=== PATIENT | male | born 1960 | race Caucasian/White ===

== ENCOUNTER 2017-02-12 19:14 | Emergency (ER) | payer OTHER ==
[~2017-02-12] VITALS: Ht 175.3 cm; Wt 82.0 kg
[~2017-02-12 19:14] MED LIST: HYDR50TA3 PO; LISI40TA PO
[2017-02-12 19:19] VITALS: TEMP 36.5; Ht 175.3 cm; Wt 82.0 kg
[2017-02-12] MEDS ORDERED: SODIUM CHLORIDE 0.9% 1000ML 1,000 ML IV STA (19:42)
[2017-02-12] MEDS ORDERED: MoRPHine SULFATE 4 MG/ML 1 ML CARP\\VIAL IV STA (19:42)
[2017-02-12] MEDS ORDERED: ONDANSETRON INJ 2 MG/ML 2 ML VIAL IV STA (19:42)
[2017-02-12] MEDS ORDERED: ATV/1 PO (20:29)
[2017-02-12] MEDS ORDERED: OXYC1TAB3 PO (20:30)
[2017-02-12] MEDS ORDERED: ASPI81TA28 PO (20:31)
--- NOTE | 2017-02-12 20:37 | DIAGNOSTIC IMAGING REPORT ---
ABD/PELVIS WITHOUT FOR STONE HISTORY: 56 years-old Male acute left-sided flank pain eval for stone/obstruction COMPARISON: CT abdomen and pelvis 05/12/2016 TECHNIQUE: Multiple axial CT images of the abdomen and pelvis were obtained without contrast. A dose lowering technique was used consistent with the principals of MARCELLA. FINDINGS: Lung bases are generally clear. No pneumoperitoneum. Inferior cardiac chambers are unremarkable. There is a nonspecific right paracentral epicardial lymph node, 2.1 x 1.1 cm, previously 1.7 x 1.1 cm. Cirrhotic morphology of the liver is seen. Spleen is enlarged, 15 cm. Portosystemic varices are seen. The pancreas is unremarkable. Mild distention of the gallbladder. 9 x 9 mm low attenuating left renal gland lesion suggests adenoma, unchanged. The right adrenal gland is unremarkable. Bilateral renal calculi are seen, largest measure approximately 5 mm within the superior pole right kidney. Most on the left are in the 4 mm range. No calculi are seen within either ureter. No hydronephrosis. The urinary bladder is unremarkable. Prostate is mildly prominent with central coarse calcifications. There are small bilateral fat filled inguinal hernias. There is normal course and caliber of the abdominal aorta. No bulky retroperitoneal adenopathy. There are a few mildly prominent nonspecific maria g hepatis lymph nodes, unchanged. Mild wall thickening is seen involving the distal esophagus with mild surrounding stranding. There is no bowel obstruction. No focal bowel wall thickening. The appendix appears noninflamed with high attenuating material seen within its tip. Soft tissues are unremarkable. AVN involves the femoral heads without collapse. There is mild sigmoidal scoliosis of the spine with severe intervertebral disc space narrowing at L4-L5 and L5-S1. IMPRESSION: 1. No acute intra-abdominal or intrapelvic abnormality identified. 2. Extensive bilateral nephrolithiasis without ureterolithiasis or obstructive uropathy. 3. Cirrhotic liver disease with stigmata of portal hypertension. No significant ascites. 4. High attenuating material within the noninflamed and nondilated appendiceal lumen may reflect appendicolith. 5. Mild wall thickening of the distal esophagus with mild surrounding inflammatory stranding may reflect esophagitis or underlying esophageal varices. This could be correlated with endoscopy.. The above report was generated using voice recognition software. It may contain grammatical, syntax or spelling errors. Electronically signed by: Meir Renteria M.D. 02/12/2017 8:35 PM Dictated Date/Time: 02/12/2017 8:28 PM
[2017-02-12 20:40] LABS: BUN/CREATININE RATIO 11.8 (10-20); CALCIUM 9.1 mg/dl (8.5-10.1); CREATININE 0.84 mg/dl (0.60-1.40); POTASSIUM 3.8 mmol/L (3.5-5.1)
[2017-02-12] MEDS ORDERED: PANTOprazole SOD 40 MG TAB PO STA (20:46)
[2017-02-12 20:57] LABS: HEMATOCRIT 46.9 % (42-52); MEAN CELL VOLUME 88.7 fL (80-100); MEAN CORPUSCULAR HEMOGLOBIN 30.8 pg (25-34); MEAN CORPUSCULAR HGB CONC 34.8 g/dl (32-36); MEAN PLATELET VOLUME 12.1 fL (7.4-10.4); PLATELET COUNT 70 K/uL (130-400); RED BLOOD COUNT 5.29 M/uL (4.7-6.1); WHITE BLOOD COUNT 5.27 K/uL (4.8-10.8)
[2017-02-12 21:04] LABS: BASO % 0.4 %; BASO ABS # 0.02 K/uL (0-0.2); COMPLETE YES; EOS % 3.4 %; IG% 0.2 %; LYMPH % 37.2 %; LYMPH ABS # 1.96 K/uL (1.2-3.4); MONO % 9.5 %; NEUT % 49.3 %
[2017-02-12] MEDS ORDERED: PRT/20 PO (21:10)
[2017-02-12 21:14] LABS: URINE APPEARANCE CLEAR (CLEAR); URINE BILIRUBIN NEG (NEG); URINE COLOR DK YELLOW; URINE NITRITE NEG (NEG); URINE PH 6.5 (4.5-7.5); URINE SPECIFIC GRAVITY 1.024 (1.000-1.030); UROBILINOGEN NEG (NEG)
[2017-02-12 21:18] LABS: MANUAL MICROSCOPIC REQUIRED? NO; REVIEW REQ? NO
[2017-02-12 21:45] VITALS: BP 162/95; PULSE 79; O2SAT 98
--- NOTE | 2017-02-12 22:49 | EMERGENCY ROOM VISIT NOTE ---
History Report prepared by Trish: Hieu Tabor Under the Supervision of: Dr. Jez Garrison M.D. First contact with patient: 19:37 Chief Complaint: CONSTIPATION Stated Complaint: NAUSEA, L SIDE FLANK/ABDOMINAL PAIN,CONSTIPATION Nursing Triage Summary: pt c/o left flank pain, mucus membranes dry. Pt states "the smell of food makes me dry heave". Pt was just admitted here recently for bleeding ulcer, and kidney infections/stones twice. Pt reports last BM . Nausea, denies v/d. History of Present Illness The patient is a 56 year old male who presents to the Emergency Room with complaints of worsening left-sided abdominal pain for the past three to four days. The patient additionally is complaining of nausea, fever of 102, a lack of appetite, and constipation. He also states that he cannot swallow, and he feels dry. The patient denies any urinary symptoms, and he states that his last bowel movement was three days ago. He states that he usually does not have any issues with constipation, and he has no history of a bowel obstruction. The patient has a history of kidney stones, a bleeding duodenal ulcer, and cerebellar atrophy with developing dementia. Source of History: patient Onset: 3-4 days ago Position: abdomen (left) Quality: sharp Timing: worsening Associated Symptoms: + fevers, + nausea, No urinary symptoms Note: Associated symptoms: Constipation Review of Systems See HPI for pertinent positives & negatives. A total of 10 systems reviewed and were otherwise negative. 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 (5) ESOPHAGEAL REFLUX (6) Hematemesis/vomiting blood (7) HTN (hypertension) Family History Cancer Diabetes mellitus Gallbladder disease Heart disease Hypertension Kidney disease Kidney stones Lung disease Social History Smoking Status: Current Every Day Smoker Alcohol Use: none Drug Use: none Marital Status: Housing Status: lives with family Occupation Status: disabled Current/Historical Medications Scheduled Aspirin (Aspirin Ec), 81 MG PO DAILY Hydrochlorothiazide (Hctz), 25 MG PO DAILY Lisinopril (Zestril), 40 MG PO QAM Lorazepam (Ativan), 1 MG PO BID Pantoprazole (Protonix), 40 MG PO DAILY Scheduled PRN Oxycodone Ir (Roxicodone Ir), 5 MG PO Q8H PRN for Pain Allergies Coded Allergies: CI Pigment Blue 63 (Verified Allergy, Intermediate, VISION DISTURBANCES, ) Citalopram (Verified Allergy, Intermediate, VISION DISTURBANCES, 02/12/17) Duloxetine (Verified Allergy, Intermediate, VISION DISTURBANCES, 02/12/17) Physical Exam Vital Signs Date Time Temp Pulse Resp B/P (MAP) Pulse Ox O2 Delivery O2 Flow Rate FiO2 02/12/17 21:45 79 18 162/95 98 02/12/17 20:58 79 18 149/93 98 Room Air 02/12/17 19:19 36.5 86 18 164/96 96 Room Air Physical Exam Constitutional: Vital signs reviewed. Eyes: Pupils are equal round reactive to light. Conjunctiva are noninjected. ENT: Pharynx is clear without erythema or exudate. Mucous membranes are dry. Neck supple without meningeal signs. Respiratory: Clear to auscultation bilaterally. Breath sounds are equal bilaterally. Cardiovascular: Regular rate and rhythm. No rubs or gallops. GI: Left sided abdominal tenderness. No guarding. Soft, nondistended. Bowel sounds are present. Musculoskeletal: No peripheral edema. No lower extremity tenderness. No CVA tenderness. Integumentary: No cyanosis. Neurological: The patient is awake and alert. No focal deficits. Psychiatric: Normal affect. Medical Decision & Procedures ER Provider Diagnostic Interpretation: Radiology results as stated below per my review and the radiologist's interpretation: ABD/PELVIS WITHOUT FOR STONE HISTORY: 56 years-old Male acute left-sided flank pain eval for stone/obstruction COMPARISON: CT abdomen and pelvis 05/12/2016 TECHNIQUE: Multiple axial CT images of the abdomen and pelvis were obtained without contrast. A dose lowering technique was used consistent with the principals of ANGELIARA. FINDINGS: Lung bases are generally clear. No pneumoperitoneum. Inferior cardiac chambers are unremarkable. There is a nonspecific right paracentral epicardial lymph node, 2.1 x 1.1 cm, previously 1.7 x 1.1 cm. Cirrhotic morphology of the liver is seen. Spleen is enlarged, 15 cm. Portosystemic varices are seen. The pancreas is unremarkable. Mild distention of the gallbladder. 9 x 9 mm low attenuating left renal gland lesion suggests adenoma, unchanged. The right adrenal gland is unremarkable. Bilateral renal calculi are seen, largest measure approximately 5 mm within the superior pole right kidney. Most on the left are in the 4 mm range. No calculi are seen within either ureter. No hydronephrosis. The urinary bladder is unremarkable. Prostate is mildly prominent with central coarse calcifications. There are small bilateral fat filled inguinal hernias. There is normal course and caliber of the abdominal aorta. No bulky retroperitoneal adenopathy. There are a few mildly prominent nonspecific maria g hepatis lymph nodes, unchanged. Mild wall thickening is seen involving the distal esophagus with mild surrounding stranding. There is no bowel obstruction. No focal bowel wall thickening. The appendix appears noninflamed with high attenuating material seen within its tip. Soft tissues are unremarkable. AVN involves the femoral heads without collapse. There is mild sigmoidal scoliosis of the spine with severe intervertebral disc space narrowing at L4-L5 and L5-S1. IMPRESSION: 1. No acute intra-abdominal or intrapelvic abnormality identified. 2. Extensive bilateral nephrolithiasis without ureterolithiasis or obstructive uropathy. 3. Cirrhotic liver disease with stigmata of portal hypertension. No significant ascites. 4. High attenuating material within the noninflamed and nondilated appendiceal lumen may reflect appendicolith. 5. Mild wall thickening of the distal esophagus with mild surrounding inflammatory stranding may reflect esophagitis or underlying esophageal varices. This could be correlated with endoscopy.. The above report was generated using voice recognition software. It may contain grammatical, syntax or spelling errors. Electronically signed by: Meir Renteria M.D. 02/12/2017 8:35 PM Dictated Date/Time: 02/12/2017 8:28 PM Laboratory Results 02/12/17 19:55 Red Blood Count 5.29, Mean Corpuscular Volume 88.7, Mean Corpuscular Hemoglobin 30.8, Mean Corpuscular Hemoglobin Concent 34.8, Mean Platelet Volume 12.1, Neutrophils (%) (Auto) 49.3, Lymphocytes (%) (Auto) 37.2, Monocytes (%) (Auto) 9.5, Eosinophils (%) (Auto) 3.4, Basophils (%) (Auto) 0.4, Neutrophils # (Auto) 2.60, Lymphocytes # (Auto) 1.96, Monocytes # (Auto) 0.50, Eosinophils # (Auto) 0.18, Basophils # (Auto) 0.02 8/27/17 19:55 Test 02/12/17 19:55 02/12/17 21:00 White Blood Count 5.27 K/uL (4.8-10.8) Red Blood Count 5.29 M/uL (4.7-6.1) Hemoglobin 16.3 g/dL (14.0-18.0) Hematocrit 46.9 % (42-52) Mean Corpuscular Volume 88.7 fL (80-100) Mean Corpuscular Hemoglobin 30.8 pg (25-34) Mean Corpuscular Hemoglobin Concent 34.8 g/dl (32-36) Platelet Count 70 K/uL (130-400) Mean Platelet Volume 12.1 fL (7.4-10.4) Neutrophils (%) (Auto) 49.3 % Lymphocytes (%) (Auto) 37.2 % Monocytes (%) (Auto) 9.5 % Eosinophils (%) (Auto) 3.4 % Basophils (%) (Auto) 0.4 % Neutrophils # (Auto) 2.60 K/uL (1.4-6.5) Lymphocytes # (Auto) 1.96 K/uL (1.2-3.4) Monocytes # (Auto) 0.50 K/uL (0.11-0.59) Eosinophils # (Auto) 0.18 K/uL (0-0.5) Basophils # (Auto) 0.02 K/uL (0-0.2) RDW Standard Deviation 42.4 fL (36.4-46.3) RDW Coefficient of Variation 13.0 % (11.5-14.5) Immature Granulocyte % (Auto) 0.2 % Immature Granulocyte # (Auto) 0.01 K/uL (0.00-0.02) Red Blood Cell Morphology Unremarkable Anion Gap 10.0 mmol/L (3-11) Est Creatinine Clear Calc Drug Dose 99.4 ml/min Estimated GFR () 114.2 Estimated GFR (Non- 98.6 BUN/Creatinine Ratio 11.8 (10-20) Calcium Level 9.1 mg/dl (8.5-10.1) Total Bilirubin 0.8 mg/dl (0.2-1) Direct Bilirubin 0.2 mg/dl (0-0.2) Aspartate Amino Transf (AST/SGOT) 68 U/L (15-37) Alanine Aminotransferase (ALT/SGPT) 81 U/L (12-78) Alkaline Phosphatase 133 U/L (45-117) Total Protein 8.1 gm/dl (6.4-8.2) Albumin 3.2 gm/dl (3.4-5.0) Lipase 211 U/L (73-393) Urine Color DK YELLOW Urine Appearance CLEAR (CLEAR) Urine pH 6.5 (4.5-7.5) Urine Specific Mohler 1.024 (1.000-1.030) Urine Protein NEG (NEG) Urine Glucose (UA) NEG (NEG) Urine Ketones NEG (NEG) Urine Occult Blood 2+ (NEG) Urine Nitrite NEG (NEG) Urine Bilirubin NEG (NEG) Urine Urobilinogen NEG (NEG) Urine Leukocyte Esterase NEG (NEG) Urine WBC (Auto) 1-5 /hpf (0-5) Urine RBC (Auto) 10-30 /hpf (0-4) Urine Hyaline Casts (Auto) 1-5 /lpf (0-5) Urine Epithelial Cells (Auto) 5-10 /lpf (0-5) Urine Bacteria (Auto) NEG (NEG) Laboratory results as reviewed by me. Medications Administered Medications (Trade) Dose Ordered Sig/Ai Route Start Time Stop Time Status Last Admin Dose Admin Morphine Sulfate (MoRPHine SULFATE INJ) 4 mg ONE STAT IV 02/12/17 19:42 02/12/17 19:44 DC 02/12/17 20:00 4 MG Ondansetron HCl (Zofran Inj) 4 mg NOW STAT IV 02/12/17 19:42 02/12/17 19:44 DC 02/12/17 19:59 4 MG Sodium Chloride 1,000 ml @ 999 mls/hr Q1H1M STAT IV 02/12/17 19:42 02/12/17 20:42 DC 02/12/17 19:59 999 MLS/HR Pantoprazole Sodium (Protonix Tab) 40 mg NOW STAT PO 02/12/17 20:46 02/12/17 20:47 DC 02/12/17 20:57 40 MG ED Course 1936: The patient was evaluated in room A4. A complete history and physical exam was performed. 1941: Sodium Chloride 1000 ml @ 999 mls/hr IV, Zofran Inj 4mg IV, Morphine Sulfate 4mg IV 2044: I talked to the patient about the test results. The patient is feeling better, and he states that he is no longer on a PPI 2045: Protonix Tab 40mg PO 2107: I discussed the test results with the patient. The patient was discharged home. Medical Decision This is a 56-year-old male who presents with left-sided abdominal pain. Differential diagnosis includes kidney stone, hydronephrosis, diverticulitis, peptic ulcer disease, pancreatitis, constipation. I did perform a limited focused review of portions of the patient's old chart on the electronic medical record. The patient was admitted in April for a duodenal ulcer. He had pancytopenia at the time with unclear etiology. I did evaluate the patient as noted above. Patient is presenting with left- sided abdominal pain. He states he hasn't had a bowel movement 3 days. He is nauseous but not vomiting. IV access was established. I did treat the patient with IV morphine and Zofran. He was also given normal saline IV. I did order and personally review the patient's urinalysis as described above. I did order and review the patient's blood work as noted in the electronic medical record. LFTs are slightly elevated. He is not anemic. He does have thrombocytopenia but his platelets are increased since his previous visit. I did order a CT of the abdomen and pelvis. I did review the images myself as well as the radiology report as described above. There is no evidence of acute process other than what appears to be esophagitis. I did treat patient with Protonix. On reassessment he is feeling better. I did discuss the test results with him. He was advised follow closely with his doctor and tool filer hand. He was discharged in good condition. He is given a prescription for Protonix. Medication Reconcilliation Current Medication List: was personally reviewed by me Blood Pressure Screening Patient's blood pressure: Elevated blood pressure Blood pressure disposition: Referred to PCP Impression Primary Impression: Left sided abdominal pain Additional Impressions: Esophagitis Thrombocytopenia Constipation Scribe Attestation The scribe's documentation has been prepared under my direct and personally reviewed by me in its entirety. I confirm that the note above accurately reflects all work, treatment, procedures, and medical decision making performed by me. Departure Information Dispostion Home / Self-Care Prescriptions Pantoprazole (Protonix) 20 Mg Tab 40 MG PO DAILY for 20 Days, #40 TAB Prov: Jez Garrison M.D. 02/12/17 Referrals Pietro Fung D.O. (PCP) Forms HOME CARE DOCUMENTATION FORM, IMPORTANT VISIT INFORMATION Patient Instructions ED Abdominal Pain Unkn Cause Male, ED Constipation, Esophagitis, My [facility], Thrombocytopenia Additional Instructions You have been examined and treated today on an emergency basis only. This is not a substitute for, or an effort to provide, complete comprehensive medical care. It is impossible to recognize and treat all injuries or illnesses in a single emergency department visit. It is therefore important that you follow up closely with your physician and tool filer hand. Call as soon as possible for an appointment. Return for worsening symptoms or if you develop fever, vomiting, black or bloody stools or any other concerning symptoms. Problem Qualifiers Additional Impressions: Constipation Constipation type: unspecified constipation type Qualified Codes: K59.00 - Constipation, unspecified
== END 2017-02-12 21:45 | disposition home or self-care (01) ==
LOC: C.EDB 19:16 → C.EDA 21:45
DX: R10.9 Unspecified abdominal pain (principal); K20.9 Esophagitis, unspecified; D69.6 Thrombocytopenia, unspecified; K59.00 Constipation, unspecified; G31.9 Degenerative disease of nervous system, unspecified; Z86.73 Personal history of transient ischemic attack (TIA), and cerebral infarction without residual deficits; K21.9 Gastro-esophageal reflux disease without esophagitis; I10 Essential (primary) hypertension; Z80.9 Family history of malignant neoplasm, unspecified; Z83.3 Family history of diabetes mellitus; Z83.79 Family history of other diseases of the digestive system; Z82.49 Family history of ischemic heart disease and other diseases of the circulatory system; Z84.1 Family history of disorders of kidney and ureter; Z83.6 Family history of other diseases of the respiratory system; F17.210 Nicotine dependence, cigarettes, uncomplicated; Z79.82 Long term (current) use of aspirin; Z79.899 Other long term (current) drug therapy

== ENCOUNTER 2017-07-29 21:23 | Inpatient (IN) | payer OTHER ==
[~2017-07-29] VITALS: Ht 180.3 cm; Wt 85.0 kg
[~2017-07-29 21:23] MED LIST changes: +ASPI81TA28 PO; +ATV/1 PO; +OXYC1TAB3 PO
[2017-07-29] MEDS ORDERED: OPTIRAY 320 IV PRN (22:00)
[2017-07-29 22:22] LABS: BASO % 0.3 %; BASO ABS # 0.01 K/uL (0-0.2); EOS % 5.2 %; EOS ABS # 0.16 K/uL (0-0.5); HEMATOCRIT 34.9 % (42-52); HEMOGLOBIN 12.1 g/dL (14.0-18.0); IG# 0.01 K/uL (0.00-0.02); LYMPH % 38.8 %; LYMPH ABS # 1.19 K/uL (1.2-3.4); MEAN CELL VOLUME 91.4 fL (80-100); MEAN CORPUSCULAR HEMOGLOBIN 31.7 pg (25-34); MEAN CORPUSCULAR HGB CONC 34.7 g/dl (32-36); MEAN PLATELET VOLUME 11.3 fL (7.4-10.4); MONO % 6.8 %; MONO ABS # 0.21 K/uL (0.11-0.59); NEUT % 48.6 %; NEUT ABS # 1.49 K/uL (1.4-6.5); PLATELET COUNT 54 K/uL (130-400); RED CELL DISTRIBUTION WIDTH CV 15.6 % (11.5-14.5); RED CELL DISTRIBUTION WIDTH SD 52.5 fL (36.4-46.3); WHITE BLOOD COUNT 3.07 K/uL (4.8-10.8)
[2017-07-29 22:28] LABS: INR 1.1 (0.9-1.1); PTT PATIENT 27.9 SECONDS (21.0-31.0)
[2017-07-29 22:41] LABS: ALBUMIN 2.3 gm/dl (3.4-5.0); ALT/SGPT 63 U/L (12-78); BLOOD UREA NITROGEN 13 mg/dl (7-18); CARBON DIOXIDE 22 mmol/L (21-32); CREATININE 1.08 mg/dl (0.60-1.40); GLUCOSE 125 mg/dl (70-99); POTASSIUM 3.6 mmol/L (3.5-5.1); SODIUM 139 mmol/L (136-145)
--- NOTE | 2017-07-29 22:46 | DIAGNOSTIC IMAGING REPORT ---
CHEST ONE VIEW PORTABLE CLINICAL HISTORY: 56 years-old Male presenting with EVALUATE ALTERED MENTAL STATUS/WEAKNESS. TECHNIQUE: Portable upright AP view of the chest was obtained. COMPARISON: 05/14/2016. FINDINGS: Atherosclerosis of the aortic arch. Cardiac silhouette normal in size. Lungs and pleural spaces clear. Osseous structures normal. Upper abdomen normal. IMPRESSION: 1. No acute cardiopulmonary disease. Electronically signed by: Derek Romo M.D. 07/29/2017 10:45 PM Dictated Date/Time: 07/29/2017 10:45 PM
[2017-07-29 22:52] LABS: ALKALINE PHOSPHATASE 195 U/L (45-117); AST/SGOT 98 U/L (15-37); TOTAL PROTEIN 6.9 gm/dl (6.4-8.2)
--- NOTE | 2017-07-29 23:00 | EMERGENCY ROOM VISIT NOTE ---
History Report prepared by Trish: Washington Monzon Under the Supervision of: Dr. Santos Lucero M.D. First contact with patient: 21:41 Chief Complaint: SWELLING TO EXTREMITY Stated Complaint: SWELLING IN TESTICLES/R LEG,FEVER,ACHES History of Present Illness The patient is a 56 year old male who presents to the Emergency Room with complaints of constant bilateral testicular swelling that started one week ago. He rates his pain as a 9/10 in severity. The patient describes his scrotum as the "size of a grapefruit". He reports that he has also been experiencing back pain, which has been causing him not to sleep. The patient states his lower extremities have been swelling, with his right worse than his left. He reports he is able to urinate, but he states his "flow" has been reduced. The patient states that his abdomen has been bloated. He reports that he has not been eating because he is nervous about his bloating increasing. The patient states that he has been having an intermittent fever for the last three days. He reports that he has been taking Ibuprofen for his symptoms without any relief. The patient denies any shortness of breath. He reports a history of cirrhosis. Source of History: patient Onset: a week ago Position: other (testicles) Symptom Intensity: 9/10 Quality: other ("grapefruit" swelling) Timing: constant Modifying Factors (Relieving): ibuprofen Associated Symptoms: + fevers, + back pain, No SOB Note: Associated symptoms: extremity swelling, abdominal bloating Review of Systems See HPI for pertinent positives & negatives. A total of 10 systems reviewed and were otherwise negative. 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 (5) ESOPHAGEAL REFLUX (6) Hematemesis/vomiting blood (7) HTN (hypertension) Family History Cancer Diabetes mellitus Gallbladder disease Heart disease Hypertension Kidney disease Kidney stones Lung disease Social History Smoking Status: Current Every Day Smoker Alcohol Use: none Drug Use: none Marital Status: Housing Status: lives with family Occupation Status: disabled Current/Historical Medications Scheduled Hydrochlorothiazide (Hctz), 25 MG PO DAILY Lisinopril (Zestril), 40 MG PO QAM Lorazepam (Ativan), 1 MG PO BID Scheduled PRN Oxycodone Ir (Roxicodone Ir), 5 MG PO Q8H PRN for Pain Allergies Coded Allergies: CI Pigment Blue 63 (Verified Allergy, Intermediate, VISION DISTURBANCES, ) Citalopram (Verified Allergy, Intermediate, VISION DISTURBANCES, 02/12/17) Duloxetine (Verified Allergy, Intermediate, VISION DISTURBANCES, 02/12/17) Physical Exam Vital Signs Date Time Temp Pulse Resp B/P (MAP) Pulse Ox O2 Delivery O2 Flow Rate FiO2 07/30/17 01:06 18 157/100 95 Room Air 07/29/17 22:24 86 07/29/17 22:13 88 20 153/94 99 Room Air 07/29/17 22:13 99 Room Air 07/29/17 21:26 36.8 97 18 178/104 99 Room Air Physical Exam GENERAL: Patient is in no acute distress. HEENT: No acute trauma, normocephalic atraumatic, mucous membranes moist, no nasal congestion, no scleral icterus. NECK: No stridor, no adenopathy, no meningismus, trachea is midline. LUNGS: Breath sounds diminished bilaterally. Few scattered wheezes. Breath sounds are equal. No respiratory distress. HEART: Without murmurs gallops or rubs, regular rate and rhythm. ABDOMEN: Soft, nontender, bowel sounds positive, no hernias, no peritonitis. EXTREMITIES: Bilateral pedal edema, worse on right. No erythema or warmth NEUROLOGIC: Oriented x 3, no acute motor or sensory deficits, no focal weakness. SKIN: No rash, no jaundice, no diaphoresis. GROIN: He has scrotal edema, no evidence for scrotal redness or cellulitis. Testicles appear normal in size. No obvious hernia. Rectal: Stool is brown, prostate was somewhat enlarged and tender but not boggy. Medical Decision & Procedures ER Provider Diagnostic Interpretation: Radiology results as stated below per my review and radiologist interpretation: CHEST ONE VIEW PORTABLE CLINICAL HISTORY: 56 years-old Male presenting with EVALUATE ALTERED MENTAL STATUS/WEAKNESS. TECHNIQUE: Portable upright AP view of the chest was obtained. COMPARISON: 05/14/2016. FINDINGS: Atherosclerosis of the aortic arch. Cardiac silhouette normal in size. Lungs and pleural spaces clear. Osseous structures normal. Upper abdomen normal. IMPRESSION: 1. No acute cardiopulmonary disease. Electronically signed by: Derek Romo M.D. 07/29/2017 10:45 PM Dictated Date/Time: 07/29/2017 10:45 PM ABD/PELVIS IV CONTRAST ONLY CLINICAL HISTORY: 56 years-old Male presenting with ABD PAIN, POSS fluid or mass, fever, testicular swelling. TECHNIQUE: Multidetector CT of the abdomen and pelvis was performed after the administration of intravenous contrast. IV contrast: 93 mL of Optiray 320. A dose lowering technique was used consistent with the principles of ALARA (as low as reasonably achievable). COMPARISON: 02/12/2017. CT DOSE (mGy.cm): The estimated cumulative dose is 945.80 mGy.cm. 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 Lung bases: Lungs and pleural spaces clear. Normal heart size. No pericardial or pleural effusion. Liver: Nodular contour of the liver consistent with cirrhosis. No focal lesion allowing for the single phase of contrast. Patent hepatic vasculature. Biliary: No gross biliary ductal dilatation allowing for noncontrast technique. Mildly distended gallbladder with mild gallbladder wall thickening and pericholecystic inflammatory change. This appearance is new from prior. Pancreas: Normal. Spleen: Enlarged spleen, measuring nearly 15 cm in maximal sagittal dimension. Adrenal glands: Normal. Kidneys and ureters: Multiple bilateral nonobstructing renal calculi, the largest on the right measuring 6 mm and on the left measuring 6 mm. No hydronephrosis. Normal parenchymal enhancement apart from a focal hypodensity in the left kidney, likely simple cyst. Ureters normal. Bladder: Incompletely evaluated secondary to underdistention. Pelvic organs: Prostate and seminal vesicles normal. Testes incompletely included within the [id number]. Possible hydroceles and varicoceles may be present. Bowel: Mild infiltration of the mesorectal fat with mild lower rectal wall thickening circumferentially. Thickening of the mesorectal fascia. Focal wall thickening and pericolonic inflammatory change at the upper rectum (series 3 image 309). No soft tissue nodularity in the mesorectal fat at this level. Inflammatory change approaches the peritoneal reflection in the upper mesorectal fat. The appendix is normal. No bowel obstruction. Peritoneal cavity: Trace fluid in the right paracolic gutter. No free intraperitoneal gas. Lymph nodes: Enlarged upper abdominal lymph nodes, the largest in the maria g hepatis and portacaval regions measuring 14 mm in the short axis (series 3 image 83). These were evident on the prior exam. Vasculature: Aorta and IVC patent and normal in caliber. Few esophageal/paraesophageal varices noted. Abdominal wall: Fat-containing bilateral inguinal hernias. Mild body wall edema. Musculoskeletal: Degenerative changes of the spine. IMPRESSION: 1. Edematous changes of the mesorectal fat and wall thickening of the rectum could relate to portal colopathy. Differential considerations include proctitis. Wall thickening does not appear to be focal to raise concern for neoplasm. 2. Cirrhosis with portal hypertension evidenced by splenomegaly and esophageal/esophageal varices. 3. Trace abdominal ascites. 4. Enlarged upper abdominal lymph nodes, possibly on a reactive basis in the absence of a history of malignancy or lymphoproliferative disease. 5. Mildly distended thick-walled gallbladder with pericholecystic infiltration. This could be secondary to portal hypertension given the clinical setting of cirrhosis. If there is clinical concern for cholecystitis, HIDA scan should be obtained. 6. Bilateral nonobstructing nephrolithiasis. 7. Testes incompletely included within the [id number]. Possible hydroceles and varicoceles. Testicular ultrasound is more sensitive for these diagnoses. Electronically signed by: Derek Romo M.D. 07/29/2017 11:16 PM Dictated Date/Time: 07/29/2017 11:06 PM US VENOUS BILATERAL LOWER EXTREMITIES: No evidence of deep venous thrombosis. Radiologist: Rupert Sauceda MD US SCROTAL: There is normal flow to bilateral testicles. The bilateral epididymal tails are enlarged, heterogenous, and demonstrates increased vascularity, suggesting epididymitis. Scrotal wall is edematous and demonstrates prominent flow on color Doppler. 8 x 6 mm lesion adjacent to epididymal head with associated hyperechogenic regions, which may represent an abnormal appendix epididymis, but mass is not excluded. 4 mm scrotolith on right. Small bilateral hydroceles. Radiologist: Rupert Sauceda MD Laboratory Results 07/29/17 22:01 Red Blood Count 3.82, Mean Corpuscular Volume 91.4, Mean Corpuscular Hemoglobin 31.7, Mean Corpuscular Hemoglobin Concent 34.7, Mean Platelet Volume 11.3, Neutrophils (%) (Auto) 48.6, Lymphocytes (%) (Auto) 38.8, Monocytes (%) (Auto) 6.8, Eosinophils (%) (Auto) 5.2, Basophils (%) (Auto) 0.3, Neutrophils # (Auto) 1.49, Lymphocytes # (Auto) 1.19, Monocytes # (Auto) 0.21, Eosinophils # (Auto) 0.16, Basophils # (Auto) 0.01 07/29/17 22:01 Test 07/29/17 22:01 07/30/17 00:55 White Blood Count 3.07 K/uL (4.8-10.8) Red Blood Count 3.82 M/uL (4.7-6.1) Hemoglobin 12.1 g/dL (14.0-18.0) Hematocrit 34.9 % (42-52) Mean Corpuscular Volume 91.4 fL (80-100) Mean Corpuscular Hemoglobin 31.7 pg (25-34) Mean Corpuscular Hemoglobin Concent 34.7 g/dl (32-36) Platelet Count 54 K/uL (130-400) Mean Platelet Volume 11.3 fL (7.4-10.4) Neutrophils (%) (Auto) 48.6 % Lymphocytes (%) (Auto) 38.8 % Monocytes (%) (Auto) 6.8 % Eosinophils (%) (Auto) 5.2 % Basophils (%) (Auto) 0.3 % Neutrophils # (Auto) 1.49 K/uL (1.4-6.5) Lymphocytes # (Auto) 1.19 K/uL (1.2-3.4) Monocytes # (Auto) 0.21 K/uL (0.11-0.59) Eosinophils # (Auto) 0.16 K/uL (0-0.5) Basophils # (Auto) 0.01 K/uL (0-0.2) RDW Standard Deviation 52.5 fL (36.4-46.3) RDW Coefficient of Variation 15.6 % (11.5-14.5) Immature Granulocyte % (Auto) 0.3 % Immature Granulocyte # (Auto) 0.01 K/uL (0.00-0.02) Prothrombin Time 12.0 SECONDS (9.0-12.0) Prothromb Time International Ratio 1.1 (0.9-1.1) Activated Partial Thromboplast Time 27.9 SECONDS (21.0-31.0) Partial Thromboplastin Ratio 1.1 Anion Gap 8.0 mmol/L (3-11) Est Creatinine Clear Calc Drug Dose 82.3 ml/min Estimated GFR () 89.1 Estimated GFR (Non- 76.9 BUN/Creatinine Ratio 12.3 (10-20) Lactic Acid Level 1.9 mmol/L (0.4-2.0) Calcium Level 8.0 mg/dl (8.5-10.1) Magnesium Level 2.1 mg/dl (1.8-2.4) Total Bilirubin 0.9 mg/dl (0.2-1) Aspartate Amino Transf (AST/SGOT) 98 U/L (15-37) Alanine Aminotransferase (ALT/SGPT) 63 U/L (12-78) Alkaline Phosphatase 195 U/L (45-117) Troponin I < 0.015 ng/ml (0-0.045) Pro-B-Type Natriuretic Peptide 107 pg/ml (0-900) Total Protein 6.9 gm/dl (6.4-8.2) Albumin 2.3 gm/dl (3.4-5.0) Globulin 4.6 gm/dl (2.5-4.0) Albumin/Globulin Ratio 0.5 (0.9-2) Thyroid Stimulating Hormone (TSH) 1.970 uIu/ml (0.300-4.500) Urine Color YELLOW Urine Appearance CLEAR (CLEAR) Urine pH 7.0 (4.5-7.5) Urine Specific Dickinson 1.045 (1.000-1.030) Urine Protein NEG (NEG) Urine Glucose (UA) NEG (NEG) Urine Ketones NEG (NEG) Urine Occult Blood 3+ (NEG) Urine Nitrite NEG (NEG) Urine Bilirubin NEG (NEG) Urine Urobilinogen NEG (NEG) Urine Leukocyte Esterase NEG (NEG) Urine WBC (Auto) 1-5 /hpf (0-5) Urine RBC (Auto) >30 /hpf (0-4) Urine Hyaline Casts (Auto) 1-5 /lpf (0-5) Urine Epithelial Cells (Auto) 5-10 /lpf (0-5) Urine Bacteria (Auto) NEG (NEG) Laboratory results reviewed by me. Medications Administered Medications (Trade) Dose Ordered Sig/Ai Route Start Time Stop Time Status Last Admin Dose Admin Furosemide (Lasix Inj) 40 mg NOW STAT IV 07/30/17 00:46 07/30/17 00:48 DC 07/30/17 01:20 40 MG Piperacillin Sod/ Tazobactam Sod (Zosyn Iv) 4.5 gm NOW STAT IV 07/30/17 00:46 07/30/17 00:48 DC 07/30/17 01:20 4.5 GM Morphine Sulfate (MoRPHine SULFATE INJ) 4 mg NOW STAT IV 07/30/17 01:00 07/30/17 01:01 DC 07/30/17 01:20 4 MG ECG Indication: weakness Rate (beats per minute): 89 Rhythm: sinus rhythm Findings: PVC, other (No ST elevation) Change: Patient's electrocardiogram interpreted by me. ED Course 2142: The patient was evaluated in room A02. A complete history and physical exam was performed. 0046: Ordered Zosyn 4.5 gm IV, Lasix Injection 40 mg IV. 0056: I reevaluated the patient and updated him on his results. I discussed the treatment plan, which he agrees to. The patient will be further evaluated. 0058: I discussed the patients case with Dr. Greenwood, [facility] Hospitalist. He understands the patients condition and agrees to accept the patient. The patient will be further evaluated. 0100: Ordered Morphine Sulfate 4 mg IV. Medical Decision The patient is a 56 year old male who presents to the Emergency Room with complaints of constant bilateral testicular swelling that started one week ago. Differential diagnoses considered include liver or renal failure, fluid overload, abdominal mass, DVT, prostatitis, UTI, anemia,. There is no leukocytosis, in fact the white count is slightly low. A mild anemia was noted. The patient had a low platelet count in the 50s. No significant electrolyte abnormality or kidney failure. There were some liver enzyme elevations consistent with his history of liver disease. No coagulopathy. Lactic acid level is not significantly elevated, this makes sepsis less likely. Urinalysis shows hematuria, no evidence for infection. Bilateral lower extremity ultrasound does not show evidence for DVT. Chest film does not show pneumonia or CHF. Abdominal and pelvis CT was suggestive of a proctitis. There was some ascites noted. The gallbladder appeared congested. Scrotal ultrasound showed evidence for possible epididymitis. There was scrotal edema seen. On my exam, the patient did not have evidence for a scrotal cellulitis. He was not febrile, he was not toxic. I did perform a prostate exam, the prostate was tender but not boggy. The patient presents complaining of leg edema, scrotal edema and some scrotal pain. He has epididymitis and possibly a proctitis. Given the urinary complaints, a prostatitis is also possible. He has known liver disease and is retaining fluid. The patient received IV Lasix, IV Zosyn. He received some IV morphine for pain. Given his situation, given the reported fever, the edema, the scrotal swelling and pain, the findings on CT and ultrasound, IV antibiotic therapy and a hospital stay was felt warranted. I did speak to the patient and to the family preservation caseworker. The on-call hospitalist was consulted. Medication Reconcilliation Current Medication List: was personally reviewed by me Blood Pressure Screening Patient's blood pressure: Elevated blood pressure Blood pressure disposition: Referred to PCP Consults Time Called: 57 Consulting Physician: Dr. Greenwood, [facility] Hospitalist Returned Call: 57 I discussed the patients case with Dr. Greenwood [facility] Hospitalist. He understands the patients condition and agrees to accept the patient. The patient will be further evaluated. Impression Primary Impression: Proctitis Additional Impressions: Epididymitis Scrotal edema Pedal edema Liver disease Scribe Attestation The scribe's documentation has been prepared under my direction and personally reviewed by me in its entirety. I confirm that the note above accurately reflects all work, treatment, procedures, and medical decision making performed by me. Departure Information Dispostion Being Evaluated By Hospitalist Referrals Pietro Fung D.O. (PCP) Patient Instructions [facility] Problem Qualifiers
--- NOTE | 2017-07-29 23:17 | DIAGNOSTIC IMAGING REPORT ---
ABD/PELVIS IV CONTRAST ONLY CLINICAL HISTORY: 56 years-old Male presenting with ABD PAIN, POSS fluid or mass, fever, testicular swelling. TECHNIQUE: Multidetector CT of the abdomen and pelvis was performed after the administration of intravenous contrast. IV contrast: 93 mL of Optiray 320. A dose lowering technique was used consistent with the principles of ALARA (as low as reasonably achievable). COMPARISON: 02/12/2017. CT DOSE (mGy.cm): The estimated cumulative dose is 945.80 mGy.cm. 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 Lung bases: Lungs and pleural spaces clear. Normal heart size. No pericardial or pleural effusion. Liver: Nodular contour of the liver consistent with cirrhosis. No focal lesion allowing for the single phase of contrast. Patent hepatic vasculature. Biliary: No gross biliary ductal dilatation allowing for noncontrast technique. Mildly distended gallbladder with mild gallbladder wall thickening and pericholecystic inflammatory change. This appearance is new from prior. Pancreas: Normal. Spleen: Enlarged spleen, measuring nearly 15 cm in maximal sagittal dimension. Adrenal glands: Normal. Kidneys and ureters: Multiple bilateral nonobstructing renal calculi, the largest on the right measuring 6 mm and on the left measuring 6 mm. No hydronephrosis. Normal parenchymal enhancement apart from a focal hypodensity in the left kidney, likely simple cyst. Ureters normal. Bladder: Incompletely evaluated secondary to underdistention. Pelvic organs: Prostate and seminal vesicles normal. Testes incompletely included within the [id number]. Possible hydroceles and varicoceles may be present. Bowel: Mild infiltration of the mesorectal fat with mild lower rectal wall thickening circumferentially. Thickening of the mesorectal fascia. Focal wall thickening and pericolonic inflammatory change at the upper rectum (series 3 image 309). No soft tissue nodularity in the mesorectal fat at this level. Inflammatory change approaches the peritoneal reflection in the upper mesorectal fat. The appendix is normal. No bowel obstruction. Peritoneal cavity: Trace fluid in the right paracolic gutter. No free intraperitoneal gas. Lymph nodes: Enlarged upper abdominal lymph nodes, the largest in the maria g hepatis and portacaval regions measuring 14 mm in the short axis (series 3 image 83). These were evident on the prior exam. Vasculature: Aorta and IVC patent and normal in caliber. Few esophageal/paraesophageal varices noted. Abdominal wall: Fat-containing bilateral inguinal hernias. Mild body wall edema. Musculoskeletal: Degenerative changes of the spine. IMPRESSION: 1. Edematous changes of the mesorectal fat and wall thickening of the rectum could relate to portal colopathy. Differential considerations include proctitis. Wall thickening does not appear to be focal to raise concern for neoplasm. 2. Cirrhosis with portal hypertension evidenced by splenomegaly and esophageal/esophageal varices. 3. Trace abdominal ascites. 4. Enlarged upper abdominal lymph nodes, possibly on a reactive basis in the absence of a history of malignancy or lymphoproliferative disease. 5. Mildly distended thick-walled gallbladder with pericholecystic infiltration. This could be secondary to portal hypertension given the clinical setting of cirrhosis. If there is clinical concern for cholecystitis, HIDA scan should be obtained. 6. Bilateral nonobstructing nephrolithiasis. 7. Testes incompletely included within the [id number]. Possible hydroceles and varicoceles. Testicular ultrasound is more sensitive for these diagnoses. Electronically signed by: Derek Romo M.D. 07/29/2017 11:16 PM Dictated Date/Time: 07/29/2017 11:06 PM
[2017-07-30] VITALS (8 sets, daily range): BP systolic 93–165; BP diastolic 57–98; PULSE 77–89; TEMP 36.5–36.9; O2SAT 97–99; Ht 180.3 cm; Wt 85.0 kg
[2017-07-30] MEDS ORDERED: PIPERACILLIN/TAZOBACTAM 4.5 GM/100ML D5W IV STA (00:46)
[2017-07-30] MEDS ORDERED: FUROSEMIDE 40 MG/4 ML VIAL IV STA (00:46)
[2017-07-30] MEDS ORDERED: MoRPHine SULFATE 4 MG/ML 1 ML CARP\\VIAL IV STA ×2 (01:00→02:51)
[2017-07-30] MEDS ORDERED: PIPERACILL/TAZOBAC CONSULT ACTIVE PRN (03:15)
[2017-07-30] MEDS ORDERED: ALUMINUM/MAGNESIUM/SIMETH (MAALOX MAX) 30 ML UDC PO PRN (03:15)
[2017-07-30] MEDS ORDERED: ACETAMINOPHEN 325 MG TAB PO PRN (03:15)
[2017-07-30] MEDS ORDERED: MAGNESIUM HYDROXIDE SUSP 30 ML UDC PO PRN (03:15)
[2017-07-30] MEDS ORDERED: POLYETHYLENE (MIRALAX) 17 GM PACK PO PRN (03:15)
[2017-07-30] MEDS ORDERED: ONDANSETRON INJ 2 MG/ML 2 ML VIAL IV PRN (03:15)
[2017-07-30] MEDS ORDERED: PIPERACILL/TAZOBAC IV 4.5 GM in DEXTROSE 5% 100ML 100 ML IV SCH (03:15)
[2017-07-30] MEDS ORDERED: METOPROLOL TARTRATE 1 MG/ML VIAL IV PRN (03:30)
--- NOTE | 2017-07-30 03:50 | History and Physical ---
History & Physical Date & Time of Service: Jul 30, 2017 at 03:22 Chief Complaint: Swelling In Testicles/R Leg,Fever,Aches Primary Care Physician: Pietro Fung D.O. History of Present Illness Source: patient Patient is a 56 year old male with a PMH of cirrhosis secondary to hep C, cerebellar ataxia, HTN, and avascular necrosis of both hips that presents to [facility] with bilateral testicular swelling. The swelling started 1 week ago and has been getting progressively worse. He rates the pain as a 9/10 and has been taking ibuprofen without any pain relief. He has had associated increase in abdominal swelling, lower extremity swelling, intermittent fevers, and slowed urinary stream. In the ED the patient was hypertensive but all other vitals were within normal limits. His labs were significant for the following: His WBC was decreased at 3 , his hgb was 12.1, his ast was 98, alk phos 195, albumin 2.3, INR 1.1. imaging showed the followin. Edematous changes of the mesorectal fat and wall thickening of the rectum, Cirrhosis with portal hypertension evidenced by splenomegaly and esophageal/esophageal varices, Trace abdominal ascites. Enlarged upper abdominal lymph nodes, possibly on a reactive basis in the absence of a history of malignancy or lymphoproliferative disease. Mildly distended thick-walled gallbladder with pericholecystic infiltration.and Bilateral nonobstructing nephrolithiasis. US of his testicles showed epidydmitis and a testicular mass, lower extremity US was negative for DVT Patient was given lasix 40mg in the ED and was given zosyn IV Past Medical/Surgical History Medical Problems: (1) Cerebellar atrophy Status: Chronic (2) CEREBRAL ART OCCLUSION NOS W CEREBRAL INFARCTION Status: Chronic (3) ESOPHAGEAL REFLUX Status: Chronic (4) HTN (hypertension) Status: Chronic Family History Cancer Diabetes mellitus Gallbladder disease Heart disease Hypertension Kidney disease Kidney stones Lung disease Social History Smoking Status: Current Every Day Smoker (30 pack year) Drug Use: none Marital Status: Occupational Status: disabled Immunizations History of Influenza Vaccine: No History of Tetanus Vaccine?: No History of Pneumococcal: No History of Hepatitis B Vaccine: No Multi-Drug Resistant Organisms History of MDRO: No Allergies Coded Allergies: CI Pigment Blue 63 (Verified Allergy, Intermediate, VISION DISTURBANCES, ) Citalopram (Verified Allergy, Intermediate, VISION DISTURBANCES, 02/12/17) Duloxetine (Verified Allergy, Intermediate, VISION DISTURBANCES, 02/12/17) Home Medications Scheduled Hydrochlorothiazide (Hctz), 25 MG PO DAILY Lisinopril (Zestril), 40 MG PO QAM Lorazepam (Ativan), 1 MG PO BID Scheduled PRN Oxycodone Ir (Roxicodone Ir), 5 MG PO Q8H PRN for Pain Review of Systems Constitutional: + fever, No chills, No sweats Respiratory: No cough, No shortness of breath, No hemoptysis Cardiovascular: No chest pain, No claudication, No palpitations Abdomen: + pain, + nausea, + problem reported (swelling), No vomiting, No diarrhea, No constipation Genitourinary - Male: + urinary hesitancy, No hematuria, No dysuria Physical Exam Vital Signs Date Time Temp Pulse Resp B/P (MAP) Pulse Ox O2 Delivery O2 Flow Rate FiO2 07/30/17 03:13 89 20 152/112 96 Room Air 07/30/17 01:06 18 157/100 95 Room Air 07/29/17 22:24 86 07/29/17 22:13 88 20 153/94 99 Room Air 07/29/17 22:13 99 Room Air 07/29/17 21:26 36.8 97 18 178/104 99 Room Air General Appearance: WD/WN, no apparent distress Head: normocephalic, atraumatic ENT: hearing grossly normal, pharynx normal Neck: supple, thyroid normal, no JVD, trachea midline Respiratory/Chest: no respiratory distress, no accessory muscle use, + decreased breath sounds (bilaterally), + wheezing (mild scattered wheeze ) Cardiovascular: regular rate, rhythm, no murmur, normal peripheral pulses Abdomen/GI: normal bowel sounds, soft, + tenderness (mild tenderness throughout ), + distended Genitourinary - Male: normal male genitalia, + testicular mass, + testicular tenderness, + pertinent finding (tender prostate per ED physician) Back: normal inspection, no muscle spasm, normal range of motion Extremities/Musculoskelatal: no calf tenderness, normal range of motion, + pedal edema (pitting edema of the R leg +1 to the knee) Neurologic/Psych: alert, normal mood/affect, oriented x 3 Skin: + pallor Diagnostics Laboratory Results Results Past 24 Hours Test 07/29/17 22:01 07/30/17 00:55 Range/Units White Blood Count 3.07 4.8-10.8 K/uL Red Blood Count 3.82 4.7-6.1 M/uL Hemoglobin 12.1 14.0-18.0 g/dL Hematocrit 34.9 42-52 % Mean Corpuscular Volume 91.4 80-100 fL Mean Corpuscular Hemoglobin 31.7 25-34 pg Mean Corpuscular Hemoglobin Concent 34.7 32-36 g/dl Platelet Count 54 130-400 K/uL Mean Platelet Volume 11.3 7.4-10.4 fL Neutrophils (%) (Auto) 48.6 % Lymphocytes (%) (Auto) 38.8 % Monocytes (%) (Auto) 6.8 % Eosinophils (%) (Auto) 5.2 % Basophils (%) (Auto) 0.3 % Neutrophils # (Auto) 1.49 1.4-6.5 K/uL Lymphocytes # (Auto) 1.19 1.2-3.4 K/uL Monocytes # (Auto) 0.21 0.11-0.59 K/uL Eosinophils # (Auto) 0.16 0-0.5 K/uL Basophils # (Auto) 0.01 0-0.2 K/uL RDW Standard Deviation 52.5 36.4-46.3 fL RDW Coefficient of Variation 15.6 11.5-14.5 % Immature Granulocyte % (Auto) 0.3 % Immature Granulocyte # (Auto) 0.01 0.00-0.02 K/uL Prothrombin Time 12.0 9.0-12.0 SECONDS Prothromb Time International Ratio 1.1 0.9-1.1 Activated Partial Thromboplast Time 27.9 21.0-31.0 SECONDS Partial Thromboplastin Ratio 1.1 Sodium Level 139 136-145 mmol/L Potassium Level 3.6 3.5-5.1 mmol/L Chloride Level 109 98-107 mmol/L Carbon Dioxide Level 22 21-32 mmol/L Anion Gap 8.0 3-11 mmol/L Blood Urea Nitrogen 13 7-18 mg/dl Creatinine 1.08 0.60-1.40 mg/dl Est Creatinine Clear Calc Drug Dose 82.3 ml/min Estimated GFR () 89.1 Estimated GFR (Non- 76.9 BUN/Creatinine Ratio 12.3 10-20 Random Glucose 125 70-99 mg/dl Lactic Acid Level 1.9 0.4-2.0 mmol/L Calcium Level 8.0 8.5-10.1 mg/dl Magnesium Level 2.1 1.8-2.4 mg/dl Total Bilirubin 0.9 0.2-1 mg/dl Aspartate Amino Transf (AST/SGOT) 98 15-37 U/L Alanine Aminotransferase (ALT/SGPT) 63 12-78 U/L Alkaline Phosphatase 195 45-117 U/L Troponin I < 0.015 0-0.045 ng/ml Pro-B-Type Natriuretic Peptide 107 0-900 pg/ml Total Protein 6.9 6.4-8.2 gm/dl Albumin 2.3 3.4-5.0 gm/dl Globulin 4.6 2.5-4.0 gm/dl Albumin/Globulin Ratio 0.5 0.9-2 Thyroid Stimulating Hormone (TSH) 1.970 0.300-4.500 uIu/ml Urine Color YELLOW Urine Appearance CLEAR CLEAR Urine pH 7.0 4.5-7.5 Urine Specific [place] 1.045 1.000-1.030 Urine Protein NEG NEG Urine Glucose (UA) NEG NEG Urine Ketones NEG NEG Urine Occult Blood 3+ NEG Urine Nitrite NEG NEG Urine Bilirubin NEG NEG Urine Urobilinogen NEG NEG Urine Leukocyte Esterase NEG NEG Urine WBC (Auto) 1-5 0-5 /hpf Urine RBC (Auto) >30 0-4 /hpf Urine Hyaline Casts (Auto) 1-5 0-5 /lpf Urine Epithelial Cells (Auto) 5-10 0-5 /lpf Urine Bacteria (Auto) NEG NEG Microbiology Results 07/29/17 Blood Culture, Received Pending 07/29/17 Blood Culture, Received Pending Diagnostic Radiology Ct abdomen/pelvis IMPRESSION: 1. Edematous changes of the mesorectal fat and wall thickening of the rectum could relate to portal colopathy. Differential considerations include proctitis. Wall thickening does not appear to be focal to raise concern for neoplasm. 2. Cirrhosis with portal hypertension evidenced by splenomegaly and esophageal/esophageal varices. 3. Trace abdominal ascites. 4. Enlarged upper abdominal lymph nodes, possibly on a reactive basis in the absence of a history of malignancy or lymphoproliferative disease. 5. Mildly distended thick-walled gallbladder with pericholecystic infiltration. This could be secondary to portal hypertension given the clinical setting of cirrhosis. If there is clinical concern for cholecystitis, HIDA scan should be obtained. 6. Bilateral nonobstructing nephrolithiasis. 7. Testes incompletely included within the [id number]. Possible hydroceles and varicoceles. Testicular ultrasound is more sensitive for these diagnoses. CXR IMPRESSION: 1. No acute cardiopulmonary disease. EKG PVC, other (No ST elevation) Impression Assessment and Plan 56 year old male with a PMH of cirrhosis, htn, cerebellar ataxia, avascular necrosis of both hips presented to [facility] with testicular swelling, abdominal bloating, intermittent fevers and slowed urinary stream. Ascites secondary to Cirrhosis - IV zosyn to cover for SBP - takes hydrochlorothiazide daily - hx of hep C, does not follow with GI as outpatient - furosemide 40mg IV given, repeat in the AM - consider starting spironolactone 100mg PO as outpatient - salt restricted diet - GI consulted for possible paracentesis if needed - portal HTN and varices on imaging - monitor I/O's - blood cx pending Prostatitis/Epidydmitis - IV zosyn will cover prostatitis and epidydmitis - statrad showed testicular swelling - urology consulted R sided Unilateral extremity swelling - statrad with negative DVT - possibly due to unilateral venous compression? - lasix given, dayteam to investigate further HTN - continue lisinopril and HCTZ - lopressor 5mg IV q4 for sbp>160 Depression - continue celexa Chronic low back pain - continue oxycodone and hydrocodone prn Cerebellar ataxia - uses wheelchair occasionally when needed - Pt/OT DVT prophylaxis - lovenox 40mg subq Full Code Attending addendum: I have physically seen this patient, have supervised the medical residents activities, and agree with the H&P unless as otherwise noted. Assessment and Plan: Anasarca/cirrhosis/hepatitis C/esophageal varices/portal hypertension/ hypertension-- Already given Lasix 40 mg IV in the ED. Hold lisinopril and HCTZ We will place on albumin with Lasix IV combination for better diuresis He should ultimately be placed on a combination of propranolol, furosemide and spironolactone. Follow serial CBC with differential, chemistry profile and magnesium level. He does not actively look to have SBP, but will be covered by Zosyn IV We will consult gastroenterology, and have them determine the need for viral RNA load and genotype testing for any potential treatment of hep C directly Epididymitis/8 x 6 mm left lesion-- Placed on Zosyn IV Consult urology Level of Care Med/Surg Advanced Directives Existing Advance Directive: No Existing Living Will: No Existing Power of Hosiery Bagger: No Resuscitation Status FULL RESUSCITATION VTE Prophylaxis VTE Risk Assessment Done? Y/N: Yes Risk Level: High Given or contraindicated: Enoxaparin (Lovenox)SQ Social Service Consult None Apply
[2017-07-30] MEDS ORDERED: INFLUENZA VIRUS QUAD VACCINE 0.5 ML SYR IM. ONE (05:30)
[2017-07-30] MEDS ORDERED: PNEUMOCOCCAL POLYSACCHARIDES 25 MCG/0.5 ML VIAL/SYR IM. ONE (05:30)
[2017-07-30] MEDS ORDERED: INFLUENZA ADMINISTRATION CHARGE ONE (05:30)
[2017-07-30] MEDS ORDERED: PNEUMOCOCCAL ADMINISTRATION CHARGE ONE (05:30)
[2017-07-30] MEDS: PIPERACILL/TAZOBAC IV 3.375 GM in DEXTROSE 5% 100ML IV SCH ×3 (05:31→21:28)
--- NOTE | 2017-07-30 05:56 | DIAGNOSTIC IMAGING REPORT ---
(TESTICULAR) SCROTUM-CONT HISTORY: Pain. Edema. swelling, pain COMPARISON: None. FINDINGS: Right testis: Uniform echogenicity with maximum dimension of 4.2 cm. Normal vascular flow. Moderate edematous change of the epididymis. Left testis: Maximum dimension 3.9 cm. Normal vascular flow. Heterogeneous epididymis with increased vascularity. Increased prominence of the appendix testis IMPRESSION: Normal testicular ultrasound. Epididymitis. Prominent appendix epididymis on the left most likely related to the inflammatory epididymitis present. The above report was generated using voice recognition software. It may contain grammatical, syntax or spelling errors. Electronically signed by: Roger Sanches M.D. 07/30/2017 5:54 AM Dictated Date/Time: 07/30/2017 5:52 AM
--- NOTE | 2017-07-30 05:57 | DIAGNOSTIC IMAGING REPORT ---
VENOUS DOPPLER LWR EXT BILA HISTORY: Pain. Edema. swelling--right side worse COMPARISON STUDY: October 09, 2008 FINDINGS: There is normal compressibility, flow, and augmentation within the bilateral lower extremity deep venous systems. IMPRESSION: No DVT within the right or left lower extremity. The above report was generated using voice recognition software. It may contain grammatical, syntax or spelling errors. Electronically signed by: Roger Sanches M.D. 07/30/2017 5:56 AM Dictated Date/Time: 07/30/2017 5:55 AM
[2017-07-30] MEDS ORDERED: FUROSEMIDE INJ 40 MG in SYRINGE 0 ML IV ONE (07:15)
[2017-07-30] MEDS: LORAZEPAM 1 MG TAB PO SCH ×2 (08:29→21:28)
[2017-07-30] MEDS: OXYCODONE HCL IR 5 MG TAB (IMMEDIATE RELEASE) PO PRN ×2 (08:31→21:28)
[2017-07-30] MEDS ORDERED: HYDROCHLOROTHIAZIDE 50 MG TAB PO SCH (09:00)
[2017-07-30] MEDS: ENOXAPARIN 40 MG/0.4 ML SYR SQ SCH (09:01)
[2017-07-30] MEDS: LISINOPRIL 40 MG TAB PO SCH (09:03)
[2017-07-30] MEDS ORDERED: PANTOprazole SOD 40 MG TAB PO STA (10:17)
--- NOTE | 2017-07-30 10:29 | Family Medicine Progress Note ---
Progress Note Date of Service Jul 30, 2017. Subjective Pt evaluation today including: conversation w/ patient, physical exam, chart review, lab review, review of inpatient medication list Pain: 12/26 scrotal pain reported, improved with analgesia PO Intake: Tolerating PO intake Voiding: voiding difficulty Mr. Olivier reports his testicular pain is slowly resolving. He states the skin feels less tight now. He does note that he has had episodes over the last 2 months where his scrotum would swell up for a couple of days, without pain, and resolve spontaneously. He states this is different from this episode, where for the last week, his scrotum was swollen and progressively becoming more tender. This was associated with subjective fever, although he did not measure his temperature. He also notes that his abdomen has been distended since Monday (6 days ago) and has been uncomfortable, although not painful. He states this has never happened before. He has been having regular bowel movements and denies the presence of blood in his stool. Of note, he also has chronic right sided leg swelling which he states is much improved today. Constitutional: + fever, No chills Respiratory: No cough, No sputum, No shortness of breath Cardiovascular: No chest pain Abdomen: + problem reported (uncomfortable sensation in abdomen), No pain, No nausea, No vomiting, No diarrhea, No constipation, No GI bleeding Male : + slowing stream, No dysuria, No hematuria All Other Systems: Reviewed and Negative Medications Current Inpatient Medications Medications (Trade) Dose Ordered Sig/Ai Route Start Time Stop Time Status Last Admin Dose Admin Ioversol (Optiray 320) 100 ml UD PRN IV 07/29/17 22:00 08/02/17 21:59 Enoxaparin Sodium (Lovenox Inj) 40 mg Q24H SQ 07/30/17 09:00 08/29/17 08:59 07/30/17 09:01 40 MG Acetaminophen (Tylenol Tab) 650 mg Q4H PRN PO 07/30/17 03:15 08/29/17 03:14 Al Hydrox/Mg Hydrox/Simethicone (Maalox Max Susp) 15 ml Q4H PRN PO 07/30/17 03:15 08/29/17 03:14 Magnesium Hydroxide (Milk Of Magnesia Susp) 30 ml Q6H PRN PO 07/30/17 03:15 08/29/17 03:14 Polyethylene (Miralax Powder Packet) 17 gm DAILY PRN PO 07/30/17 03:15 08/29/17 03:14 Ondansetron HCl (Zofran Inj) 4 mg Q6H PRN IV 07/30/17 03:15 08/29/17 03:14 Miscellaneous Information (Consult) 1 ea UD PRN N/A 07/30/17 03:15 08/29/17 03:14 Hydrochlorothiazide (Hydrochlorothiazide Tab) 25 mg DAILY PO 07/30/17 09:00 08/29/17 08:59 07/30/17 09:04 25 MG Lisinopril (Zestril Tab) 40 mg QAM PO 07/30/17 09:00 08/29/17 08:59 07/30/17 09:03 40 MG Lorazepam (Ativan Tab) 1 mg BID PO 07/30/17 09:00 08/29/17 08:59 07/30/17 08:29 1 MG Oxycodone HCl (Roxicodone Immediate Rel Tab) 5 mg Q8H PRN PO 07/30/17 03:15 08/13/17 03:14 07/30/17 08:31 5 MG Piperacillin Sod/ Tazobactam Sod 3.375 gm/Dextrose 115 ml @ 28.75 mls/ hr Q8H IV 07/30/17 06:00 08/09/17 05:59 07/30/17 05:31 28.75 MLS/HR Pantoprazole Sodium (Protonix Tab) 40 mg QAM PO 07/31/17 09:00 08/03/17 08:59 Objective Vital Signs Date Time Temp Pulse Resp B/P (MAP) Pulse Ox O2 Delivery O2 Flow Rate FiO2 07/30/17 09:02 89 117/81 (93) 07/30/17 08:15 Room Air 07/30/17 07:43 36.5 79 18 137/85 (102) 97 Room Air 07/30/17 05:19 77 130/87 (101) 07/30/17 04:45 36.5 82 16 165/98 97 Room Air 07/30/17 03:13 89 20 152/112 96 Room Air 07/30/17 01:06 18 157/100 95 Room Air 07/29/17 22:24 86 07/29/17 22:13 88 20 153/94 99 Room Air 07/29/17 22:13 99 Room Air 07/29/17 21:26 36.8 97 18 178/104 99 Room Air Physical Exam General Appearance: WD/WN, no apparent distress Respiratory/Chest: lungs clear, + decreased breath sounds Cardiovascular: regular rate, rhythm, no edema, no gallop, no murmur Abdomen: + distended, + tenderness (diffusely tender, although mild), + pertinent finding (bilaterally swollen testicles) Extremities: no pedal edema, no calf tenderness Laboratory Results Last 24 Hours Test 07/29/17 22:01 07/30/17 00:55 White Blood Count 3.07 K/uL Red Blood Count 3.82 M/uL Hemoglobin 12.1 g/dL Hematocrit 34.9 % Mean Corpuscular Volume 91.4 fL Mean Corpuscular Hemoglobin 31.7 pg Mean Corpuscular Hemoglobin Concent 34.7 g/dl Platelet Count 54 K/uL Mean Platelet Volume 11.3 fL Neutrophils (%) (Auto) 48.6 % Lymphocytes (%) (Auto) 38.8 % Monocytes (%) (Auto) 6.8 % Eosinophils (%) (Auto) 5.2 % Basophils (%) (Auto) 0.3 % Neutrophils # (Auto) 1.49 K/uL Lymphocytes # (Auto) 1.19 K/uL Monocytes # (Auto) 0.21 K/uL Eosinophils # (Auto) 0.16 K/uL Basophils # (Auto) 0.01 K/uL RDW Standard Deviation 52.5 fL RDW Coefficient of Variation 15.6 % Immature Granulocyte % (Auto) 0.3 % Immature Granulocyte # (Auto) 0.01 K/uL Prothrombin Time 12.0 SECONDS Prothromb Time International Ratio 1.1 Activated Partial Thromboplast Time 27.9 SECONDS Partial Thromboplastin Ratio 1.1 Sodium Level 139 mmol/L Potassium Level 3.6 mmol/L Chloride Level 109 mmol/L Carbon Dioxide Level 22 mmol/L Anion Gap 8.0 mmol/L Blood Urea Nitrogen 13 mg/dl Creatinine 1.08 mg/dl Est Creatinine Clear Calc Drug Dose 82.3 ml/min Estimated GFR () 89.1 Estimated GFR (Non- 76.9 BUN/Creatinine Ratio 12.3 Random Glucose 125 mg/dl Lactic Acid Level 1.9 mmol/L Calcium Level 8.0 mg/dl Magnesium Level 2.1 mg/dl Total Bilirubin 0.9 mg/dl Aspartate Amino Transf (AST/SGOT) 98 U/L Alanine Aminotransferase (ALT/SGPT) 63 U/L Alkaline Phosphatase 195 U/L Troponin I < 0.015 ng/ml Pro-B-Type Natriuretic Peptide 107 pg/ml Total Protein 6.9 gm/dl Albumin 2.3 gm/dl Globulin 4.6 gm/dl Albumin/Globulin Ratio 0.5 Thyroid Stimulating Hormone (TSH) 1.970 uIu/ml Urine Color YELLOW Urine Appearance CLEAR Urine pH 7.0 Urine Specific [place] 1.045 Urine Protein NEG Urine Glucose (UA) NEG Urine Ketones NEG Urine Occult Blood 3+ Urine Nitrite NEG Urine Bilirubin NEG Urine Urobilinogen NEG Urine Leukocyte Esterase NEG Urine WBC (Auto) 1-5 /hpf Urine RBC (Auto) >30 /hpf Urine Hyaline Casts (Auto) 1-5 /lpf Urine Epithelial Cells (Auto) 5-10 /lpf Urine Bacteria (Auto) NEG Assessment and Plan Mr. Olivier is a 56 year old male with a past medical history of cirrhosis secondary to hepatitis C, antiphospholipid syndrome s/p CVA, hx of gastric ulcer , hypertension, cerebellar atrophy and resultant ataxia, avascular necrosis of both hips who presented to [facility] with testicular swelling, abdominal bloating, intermittent fevers and slowed urinary stream. Abdominal Distention - thank you to GI for consult and recommendations - trace ascites - likely not SBP - esophageal varices on CT - address in outpatient with EGD. Checking mesenteric vein Doppler tomorrow AM - rectal thickening on CT - outpatient colonoscopy - abdominal adenopathy - recheck in 6 months as outpatient - outpatient treatment for hep C - GB thickening on CT - likely artifact - furosemide 40mg IV given in ED, repeated today - salt restricted diet - monitor I/O's Scrotal Swelling - thank you to urology for consult - likely secondary to cirrhosis & portal hypertension - may have an element of epididymitis - currently being treated with IV zosyn - can transition to cipro 500mg PO BID on discharge for a total treatment duration of 10 days - urine shows microscopic hematuria & KUB shows bilateral nephrocalcinosis - will need cystoscopy as outpatient to rule out bladder cancer given hx of smoking and hematuria - urine cytology ordered R sided leg swelling - negative Dopplers for DVT - likely due to fluid overload - resolved at this time - will continue to monitor HTN - continue lisinopril and HCTZ History of Gastric Ulcer - continue home dose of protonix 40mg daily Depression - continue celexa Chronic low back pain secondary to cerebellar atrophy - continue oxycodone q8h prn - uses wheelchair occasionally when needed DVT prophylaxis: Lovenox 40mg subq Code Status: Full Disposition: likely d/c tomorrow Resident Tracking Resident Involvement: Resident Care Provided Care Provided: Adult [facility] Medicine Reviewed: Pt Seen/Exam by Me History scrotal swelling much improved. Constitutional: denies: fever Respiratory: negative: short of breath Cardiovascular: denies chest pain General Appearance: no apparent distress Respiratory: lungs clear, no respiratory distress Cardiovascular: regular rate, rhythm Gastrointestinal: other (scrotal swelling improving) Neurologic/Psychiatric: alert, oriented x 3 Skin Characteristics: warm/dry Assessment/Plan Resident Physician Supervision Note: I independently interviewed and examined the patient and verified the epstein history and physical, reviewed labs and image studies, discussed the case with the resident Dr. Orozco and agree with the findings and care plan.
--- NOTE | 2017-07-30 13:42 | Gastrointestinal Consultation ---
Gastrointestinal Consultation Date of Consultation: Jul 30, 2017 Attending Physician: DR Shanae Garay Consulting Physician: DR Daniel Arroyo Reason for Consultation: cirrhosis, abd swelling, fever History of Present Illness Patient is a 56 year old male with CC of scrotal edema and abd bloating. HPI Pt with known untreated hep C and cirrhosis. Reviewed [place] [place] EMR and [facility] EMR and found EGD 04/2016 showing portal gastropathy, donovan sandra tear, HH and duodenal ulcer. He was a no show in the office for hospital followup. Pt states hep C never treated because of the older meds side effects in light of his cerebellar atrophy. Pt states 3 mos ago had scrotal swelling resolved in 2 days but over last 4 days peristent swelling and discomfort. He states 4 days of abd bloating and some leg swelling also. No change in his 2 BM a day regimen. No bloody not black stools, No abd pain unless press on his abdomen. States eating fine and appetite good. Some fever 2 nights ago. No GERD. No wt change. Has chronic back pain. Never had a colonoscopy per his recollection. A /P CT showed some cirrhosis, mild GB thick, splenomegaly, mild portocaval and portahepatis node enlargement, trace ascites, rectal thickening.. Spoke with DR Sanches today about CT and he states GB thickening likely artifact of some overall mesenteric edema which can be from portal HTN, normal fecal load, trace ascites no amenable to tap and Portal vein and hepatic vein appeared open . U/ S scrotum suggested epididymitis. He states since admit scrotal swelling better and lower extremity swelling better. Past Medical/Surgical History Medical Problems: (1) Acute flank pain Status: Acute (2) Dehydration Status: Acute (3) Epididymitis Status: Acute (4) Hematuria Status: Acute (5) Hepatitis C Status: Acute (6) Liver disease Status: Acute (7) Pedal edema Status: Acute (8) Proctitis Status: Acute (9) Scrotal edema Status: Acute Family History Cancer Diabetes mellitus Gallbladder disease Heart disease Hypertension Kidney disease Kidney stones Lung disease Social History Smoking Status: Current Every Day Smoker Alcohol Use: none Drug Use: none Marital Status: Housing Status: lives with family Occupation Status: disabled Allergies Coded Allergies: CI Pigment Blue 63 (Verified Allergy, Intermediate, VISION DISTURBANCES, ) Citalopram (Verified Allergy, Intermediate, VISION DISTURBANCES, 02/12/17) Duloxetine (Verified Allergy, Intermediate, VISION DISTURBANCES, 02/12/17) Current Medications Home Meds and Scripts Medications Dose Route/Sig Max Daily Dose Days Date Category Dose Instructions Roxicodone Ir (Oxycodone HCl) 5 Mg Tab 5 Mg PO Q8H PRN 02/12/17 Reported Ativan (Lorazepam) 1 Mg Tab 1 Mg PO BID 02/12/17 Reported Hctz (Hydrochlorothiazide) 50 Mg Tab 25 Mg PO DAILY 12/17/12 Reported Zestril (Lisinopril) 40 Mg Tab 40 Mg PO QAM 08/05/11 Reported Ativan Unknown Dose (Lorazepam) Tab 07/18/09 Reported Celexa Unknown Dose (Citalopram Hydrobromide) Tab 07/18/09 Reported Vicodin 5MG/500MG (Acetaminophen/Hydrocodone Bitart) Tab 2 Tablets PO Q4HR PRN 07/18/09 Reported PAIN Review of Systems See HPI otherwise 10 ROS negative Physical Exam Date Time Temp Pulse Resp B/P (MAP) Pulse Ox O2 Delivery O2 Flow Rate FiO2 07/30/17 09:02 89 117/81 (93) 07/30/17 08:15 Room Air 07/30/17 07:43 36.5 79 18 137/85 (102) 97 Room Air 07/30/17 05:19 77 130/87 (101) 07/30/17 04:45 36.5 82 16 165/98 97 Room Air 07/30/17 03:13 89 20 152/112 96 Room Air 07/30/17 01:06 18 157/100 95 Room Air 07/29/17 22:24 86 07/29/17 22:13 88 20 153/94 99 Room Air 07/29/17 22:13 99 Room Air 07/29/17 21:26 36.8 97 18 178/104 99 Room Air General Appearance: WD/WN, no apparent distress Eyes: normal inspection, PERRL ENT: hearing grossly normal, pharynx normal Neck: supple, trachea midline Respiratory/Chest: lungs clear, no respiratory distress Cardiovascular: regular rate, rhythm, no edema, no murmur Abdomen: normal bowel sounds, soft, no organomegaly, no pulsatile mass, + tenderness (LUQ mild guarding only with palpation during exam, no rebound) Extremities: non-tender, no pedal edema Neurologic/Psych: molder shoulder pad II-XII nml as tested, alert, normal mood/affect, oriented x 3 Skin: normal color, warm/dry Laboratory Results Last 24 Hours Test 07/29/17 22:01 07/30/17 00:55 White Blood Count 3.07 K/uL Red Blood Count 3.82 M/uL Hemoglobin 12.1 g/dL Hematocrit 34.9 % Mean Corpuscular Volume 91.4 fL Mean Corpuscular Hemoglobin 31.7 pg Mean Corpuscular Hemoglobin Concent 34.7 g/dl Platelet Count 54 K/uL Mean Platelet Volume 11.3 fL Neutrophils (%) (Auto) 48.6 % Lymphocytes (%) (Auto) 38.8 % Monocytes (%) (Auto) 6.8 % Eosinophils (%) (Auto) 5.2 % Basophils (%) (Auto) 0.3 % Neutrophils # (Auto) 1.49 K/uL Lymphocytes # (Auto) 1.19 K/uL Monocytes # (Auto) 0.21 K/uL Eosinophils # (Auto) 0.16 K/uL Basophils # (Auto) 0.01 K/uL RDW Standard Deviation 52.5 fL RDW Coefficient of Variation 15.6 % Immature Granulocyte % (Auto) 0.3 % Immature Granulocyte # (Auto) 0.01 K/uL Prothrombin Time 12.0 SECONDS Prothromb Time International Ratio 1.1 Activated Partial Thromboplast Time 27.9 SECONDS Partial Thromboplastin Ratio 1.1 Sodium Level 139 mmol/L Potassium Level 3.6 mmol/L Chloride Level 109 mmol/L Carbon Dioxide Level 22 mmol/L Anion Gap 8.0 mmol/L Blood Urea Nitrogen 13 mg/dl Creatinine 1.08 mg/dl Est Creatinine Clear Calc Drug Dose 82.3 ml/min Estimated GFR () 89.1 Estimated GFR (Non- 76.9 BUN/Creatinine Ratio 12.3 Random Glucose 125 mg/dl Lactic Acid Level 1.9 mmol/L Calcium Level 8.0 mg/dl Magnesium Level 2.1 mg/dl Total Bilirubin 0.9 mg/dl Aspartate Amino Transf (AST/SGOT) 98 U/L Alanine Aminotransferase (ALT/SGPT) 63 U/L Alkaline Phosphatase 195 U/L Troponin I < 0.015 ng/ml Pro-B-Type Natriuretic Peptide 107 pg/ml Total Protein 6.9 gm/dl Albumin 2.3 gm/dl Globulin 4.6 gm/dl Albumin/Globulin Ratio 0.5 Thyroid Stimulating Hormone (TSH) 1.970 uIu/ml Urine Color YELLOW Urine Appearance CLEAR Urine pH 7.0 Urine Specific [place] 1.045 Urine Protein NEG Urine Glucose (UA) NEG Urine Ketones NEG Urine Occult Blood 3+ Urine Nitrite NEG Urine Bilirubin NEG Urine Urobilinogen NEG Urine Leukocyte Esterase NEG Urine WBC (Auto) 1-5 /hpf Urine RBC (Auto) >30 /hpf Urine Hyaline Casts (Auto) 1-5 /lpf Urine Epithelial Cells (Auto) 5-10 /lpf Urine Bacteria (Auto) NEG Impression Ascites--trace ascites not amenable to tap. With minimal ascites almost never get SBP. Suspect fever from process causing scrotal edema Fever--as above Cirrhosis--secondary to hep C esophageal varices on CT--suggest outpt EGD, check mesenteric vein doppler u/s inpt rectal thickening on CT--suggest outpt colonoscopy GB thickening no clinical evidence of cholecysititsi abdominal adenopathy--often seen in setting of cirrhosis but can be follwed in 6 mos to check on stability. leukopenia--likely from splenomegaly thrombocytopenia--from splenomegaly splenomegaly secondary to cirrhosis hep C--as outpt reconsider treatment of hep C scrotal swelling--per admitting team and urology
--- NOTE | 2017-07-30 14:06 | DIAGNOSTIC IMAGING REPORT ---
KUB CLINICAL HISTORY: nephrolithisis nephrocalcinosis COMPARISON STUDY: 07/29/2017 FINDINGS: Bilateral nephrocalcinosis unchanged in the prior exam. Nonobstructive bowel pattern. Degenerative changes of the low lumbar spine to lesser extent hips. IMPRESSION: Bilateral nephrocalcinosis unchanged from the prior exam. Nonobstructive bowel pattern. The above report was generated using voice recognition software. It may contain grammatical, syntax or spelling errors. Electronically signed by: Roger Sanches M.D. 07/30/2017 2:04 PM Dictated Date/Time: 07/30/2017 2:03 PM
[2017-07-30] MEDS ORDERED: OXYCODONE HCL IR 5 MG TAB (IMMEDIATE RELEASE) PO ONE (16:00)
--- NOTE | 2017-07-30 16:09 | GENITOURINARY CONSULTATION ---
DATE OF CONSULTATION: 07/30/2017 REASON FOR THE CONSULT: Epididymitis and swollen scrotum, left-sided epididymitis. HISTORY OF PRESENTATION: The patient is a 56-year-old male, who a month ago noted that there was some swelling in his scrotum for a day which went away, but this returned 4 days ago. He said he had some low-grade fever off and on and also some low back pain and presents to the Emergency Room last evening with this discomfort. He does have history of having liver dysfunction and cirrhosis secondary to hepatis. The patient had a CAT scan and that showed some excess fluid and ascites. He also had some swelling of his right lower extremity as well. Because of this scrotal swelling without any erythema or significant discomfort or induration, he had a sonogram which showed good flow to the testis and some swelling of the left epididymis. There were no masses in the testis. No evidence of any fluid collection or abscess. Overnight, the patient has been given diuretics, which have decreased the swelling in his lower extremity as well as the scrotum, which is half as large now and on exam, is relatively unimpressive. The patient denies any previous urinary tract infections. He does have some renal calculi, but no evidence of obstruction. He also has some hematuria, microscopic. REVIEW OF SYSTEMS: Please refer to the review of systems from the admission history and physical. 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 SOCIAL HISTORY: The patient denies drug use, alcohol use, but does smoke. MEDICINES PRIOR TO ADMISSION: Hydrochlorothiazide, lisinopril, and lorazepam. The patient does take oxycodone for pain. ALLERGIES: HE HAS AN ALLERGY TO PIGMENTS, DULOXETINE, AND FROSTED PLUM. PHYSICAL EXAMINATION: GENERAL: The patient is a thin male, in no apparent distress. HEENT: Noncontributory. RESPIRATORY: No respiratory distress. EXTREMITIES: He does have some right pedal edema. No significant left heel edema. ABDOMEN: He does have some ascites. No abdominal pain. GENITOURINARY: He has got a normal circumcised male phallus with minimal scrotal swelling. Testes are palpable without mass and minimal left epididymal induration, but no significant discomfort. LABORATORY DATA: CT scan does show nonobstructing nephrolithiasis, but no bladder mass or renal mass. White blood cells are normal and actually low. His platelet count is slightly low. He is slightly anemic. His creatinine is normal. ASSESSMENT: Ascites with scrotal swelling secondary to this nephrolithiasis, possible mild left epididymitis, microscopic hematuria, and history of smoking. The patient needs to follow up for cystoscopy given the microscopic hematuria, also for nephrolithiasis. He is not a candidate. I do not think for lithotripsy given the cirrhosis. We will get a KUB and cytology during this admission and would perhaps send him home on 10 days of doxycycline if this is okay with his liver dysfunction. Again, to follow up for evaluation and possible cystoscopy given the microscopic hematuria.
[2017-07-31 05:48] LABS: HEMOGLOBIN 12.4 g/dL (14.0-18.0); MEAN CELL VOLUME 90.9 fL (80-100); MEAN CORPUSCULAR HEMOGLOBIN 32.2 pg (25-34); MEAN CORPUSCULAR HGB CONC 35.4 g/dl (32-36); RED CELL DISTRIBUTION WIDTH CV 15.9 % (11.5-14.5); RED CELL DISTRIBUTION WIDTH SD 53.3 fL (36.4-46.3); WHITE BLOOD COUNT 3.77 K/uL (4.8-10.8)
[2017-07-31 05:51] LABS: MEAN PLATELET VOLUME 11.3 fL (7.4-10.4); PLATELET COUNT 63 K/uL (130-400)
[2017-07-31] MEDS: PIPERACILL/TAZOBAC IV 3.375 GM in DEXTROSE 5% 100ML IV SCH ×3 (06:02→21:28)
[2017-07-31] MEDS: OXYCODONE HCL IR 5 MG TAB (IMMEDIATE RELEASE) PO PRN ×3 (06:09→19:23)
[2017-07-31 06:26] LABS: ALBUMIN 2.2 gm/dl (3.4-5.0); CALCIUM 7.4 mg/dl (8.5-10.1); CREATININE 1.78 mg/dl (0.60-1.40); POTASSIUM 4.2 mmol/L (3.5-5.1); TOTAL PROTEIN 6.7 gm/dl (6.4-8.2)
[2017-07-31 07:49] VITALS: BP 120/84; PULSE 78; TEMP 36.8; O2SAT 96
[2017-07-31 08:19] VITALS: O2SAT 96
[2017-07-31] MEDS: LORAZEPAM 1 MG TAB PO SCH ×2 (09:13→21:28)
--- NOTE | 2017-07-31 09:19 | DIAGNOSTIC IMAGING REPORT ---
DOPPLER ULTRASOUND OF THE MAJOR HEPATIC VESSELS CLINICAL HISTORY: Cirrhosis. Evaluate for portal vein or hepatic vein thrombosis. COMPARISON STUDY: Doppler ultrasound of the hepatic vessels May 15, [address] of the abdomen and pelvis July 29, 2017. TECHNIQUE: Grayscale and color and duplex Doppler sonography of the major hepatic vessels was performed. FINDINGS: The liver is cirrhotic. The main, left and right portal veins are patent with appropriately directed flow. The middle, left and right hepatic veins are patent. Splenic vein is patent with appropriately directed flow. IMPRESSION: Patent major hepatic vessels with appropriately directed flow. Electronically signed by: Jett Valdez M.D. 07/31/2017 9:17 AM Dictated Date/Time: 07/31/2017 9:15 AM
--- NOTE | 2017-07-31 10:02 | Progress Note ---
Subjective Date of Service: Jul 31, 2017. Subjective Pt evaluation today including: conversation w/ patient, chart review, lab review Voiding: no voiding problems Pt reports his scrotal edema has improved. Only c/o some testicular discomfort now. Denies difficulty voiding, dysuria, or hematuria. KUB showing b/l renal stones, although only the left renal stones are well appreciated. The pt does report a hx of passing a stone on his own in the past. Problem List Medical Problems: (1) Acute flank pain Status: Acute (2) Dehydration Status: Acute (3) Epididymitis Status: Acute (4) Hematuria Status: Acute (5) Hepatitis C Status: Acute (6) Liver disease Status: Acute (7) Pedal edema Status: Acute (8) Proctitis Status: Acute (9) Scrotal edema Status: Acute Review of Systems Constitutional: No fever, No chills Respiratory: No shortness of breath Cardiac: No chest pain Abdomen: No pain, No nausea, No vomiting Male : No dysuria, No slowing stream, No hematuria Heme: No abnormal bleeding/bruising Objective Vital Signs Date Time Temp Pulse Resp B/P (MAP) Pulse Ox O2 Delivery O2 Flow Rate FiO2 07/31/17 08:19 96 Room Air 07/31/17 07:49 36.8 78 18 120/84 (96) 96 Room Air 07/31/17 07:20 Room Air 07/30/17 23:50 Room Air 07/30/17 23:15 36.7 77 18 121/75 (90) 99 Room Air 07/30/17 18:50 36.9 81 16 116/69 (85) 99 Room Air 07/30/17 16:00 80 103/63 (76) 07/30/17 15:32 36.5 81 16 93/57 (69) 99 Room Air 07/30/17 15:15 Room Air Physical Exam General Appearance: no apparent distress Eyes: normal inspection ENT: hearing grossly normal Neck: no JVD Respiratory/Chest: no respiratory distress, no accessory muscle use Cardiovascular: no JVD Extremities: normal inspection Neurologic/Psychiatric: alert, normal mood/affect, oriented x 3 Skin: normal color Comments: Scrotal edema noted on exam today. Laboratory Results Last 24 Hours Test 07/31/17 05:27 White Blood Count 3.77 K/uL Red Blood Count 3.85 M/uL Hemoglobin 12.4 g/dL Hematocrit 35.0 % Mean Corpuscular Volume 90.9 fL Mean Corpuscular Hemoglobin 32.2 pg Mean Corpuscular Hemoglobin Concent 35.4 g/dl Platelet Count 63 K/uL Mean Platelet Volume 11.3 fL RDW Standard Deviation 53.3 fL RDW Coefficient of Variation 15.9 % Neutrophils % (Manual) 36.3 % Lymphocytes % (Manual) 45.1 % Monocytes % (Manual) 10.6 % Eosinophils % (Manual) 8.0 % Neutrophils # (Manual) 1.37 K/uL Total Absolute Neutrophils 1.37 K/uL Lymphocytes # (Manual) 1.70 K/uL Total Absolute Lymphocytes 1.70 K/uL Monocytes # (Manual) 0.40 K/uL Eosinophils # (Manual) 0.30 K/uL Sodium Level 134 mmol/L Potassium Level 4.2 mmol/L Chloride Level 102 mmol/L Carbon Dioxide Level 26 mmol/L Anion Gap 6.0 mmol/L Blood Urea Nitrogen 24 mg/dl Creatinine 1.78 mg/dl Est Creatinine Clear Calc Drug Dose 49.9 ml/min Estimated GFR () 48.7 Estimated GFR (Non- 42.0 BUN/Creatinine Ratio 13.3 Random Glucose 85 mg/dl Calcium Level 7.4 mg/dl Total Bilirubin 1.2 mg/dl Aspartate Amino Transf (AST/SGOT) 85 U/L Alanine Aminotransferase (ALT/SGPT) 59 U/L Alkaline Phosphatase 164 U/L Total Protein 6.7 gm/dl Albumin 2.2 gm/dl Globulin 4.5 gm/dl Albumin/Globulin Ratio 0.5 Assessment and Plan 1. Scrotal swelling/epididymitis Swelling improved. Recommend transitioning to 10-14 days of oral abx therapy such as doxycycline, Cipro, or Bactrim prior to d/c home. 2. Microhematuria Will arrange for outpatient cysto to complete evaluation. Cytology pending. 3. Nephrolithiasis Stones visualized on KUB. Will discuss management as an outpatient with Dr. Nunez. ESWL vs URS? No further management at this time. Will arrange for outpatient f/u with Dr. Nunez. Recall PRN issues. Thanks for allowing us to participate in this pt' s care.
[2017-07-31] MEDS: HYDROCHLOROTHIAZIDE 25 MG TAB PO SCH (10:04)
[2017-07-31] MEDS: ENOXAPARIN 40 MG/0.4 ML SYR SQ SCH (10:04)
[2017-07-31] MEDS: LISINOPRIL 40 MG TAB PO SCH (10:04)
[2017-07-31] MEDS: PANTOprazole SOD 40 MG TAB PO SCH (10:04)
--- NOTE | 2017-07-31 13:26 | Gastroenterology Progress Note ---
Progress Note Date of Service: Jul 31, 2017 Subjective Pt evaluation today including: conversation w/ patient, physical exam, chart review, lab review, review of studies, review of inpatient medication list CC f/u cirrhosis HPI NO abd pain. Mesenteric u/s PV and hepatic veins patent and normal flow, cirrhosis noted. Review of Systems Respiratory: No shortness of breath Cardiac: No chest pain Medications Current Inpatient Medications Medications (Trade) Dose Ordered Sig/Ai Route Start Time Stop Time Status Last Admin Dose Admin Ioversol (Optiray 320) 100 ml UD PRN IV 07/29/17 22:00 08/02/17 21:59 Enoxaparin Sodium (Lovenox Inj) 40 mg Q24H SQ 07/30/17 09:00 08/29/17 08:59 07/31/17 10:04 40 MG Acetaminophen (Tylenol Tab) 650 mg Q4H PRN PO 07/30/17 03:15 08/29/17 03:14 Al Hydrox/Mg Hydrox/Simethicone (Maalox Max Susp) 15 ml Q4H PRN PO 07/30/17 03:15 08/29/17 03:14 Magnesium Hydroxide (Milk Of Magnesia Susp) 30 ml Q6H PRN PO 07/30/17 03:15 08/29/17 03:14 Polyethylene (Miralax Powder Packet) 17 gm DAILY PRN PO 07/30/17 03:15 08/29/17 03:14 Ondansetron HCl (Zofran Inj) 4 mg Q6H PRN IV 07/30/17 03:15 08/29/17 03:14 Miscellaneous Information (Consult) 1 ea UD PRN N/A 07/30/17 03:15 08/29/17 03:14 Lisinopril (Zestril Tab) 40 mg QAM PO 07/30/17 09:00 08/29/17 08:59 07/31/17 10:04 40 MG Lorazepam (Ativan Tab) 1 mg BID PO 07/30/17 09:00 08/29/17 08:59 07/31/17 09:13 1 MG Oxycodone HCl (Roxicodone Immediate Rel Tab) 5 mg Q8H PRN PO 07/30/17 03:15 08/13/17 03:14 07/31/17 06:09 5 MG Piperacillin Sod/ Tazobactam Sod 3.375 gm/Dextrose 115 ml @ 28.75 mls/ hr Q8H IV 07/30/17 06:00 08/09/17 05:59 07/31/17 06:02 28.75 MLS/HR Pantoprazole Sodium (Protonix Tab) 40 mg QAM PO 07/31/17 09:00 08/03/17 08:59 07/31/17 10:04 40 MG Hydrochlorothiazide (Hydrochlorothiazide Tab) 25 mg DAILY PO 07/31/17 09:00 08/30/17 08:59 07/31/17 10:04 25 MG Objective Vital Signs Date Time Temp Pulse Resp B/P (MAP) Pulse Ox O2 Delivery O2 Flow Rate FiO2 07/31/17 08:19 96 Room Air 07/31/17 07:49 36.8 78 18 120/84 (96) 96 Room Air 07/31/17 07:20 Room Air 07/30/17 23:50 Room Air 07/30/17 23:15 36.7 77 18 121/75 (90) 99 Room Air 07/30/17 18:50 36.9 81 16 116/69 (85) 99 Room Air 07/30/17 16:00 80 103/63 (76) 07/30/17 15:32 36.5 81 16 93/57 (69) 99 Room Air 07/30/17 15:15 Room Air Physical Exam General Appearance: WD/WN, no apparent distress Respiratory/Chest: lungs clear, no respiratory distress Cardiovascular: regular rate, rhythm, no murmur Abdomen: normal bowel sounds, non tender, soft, no organomegaly Neurologic/Psych: normal mood/affect, oriented x 3 Skin: normal color Laboratory Results Last 24 Hours Test 07/31/17 05:27 White Blood Count 3.77 K/uL Red Blood Count 3.85 M/uL Hemoglobin 12.4 g/dL Hematocrit 35.0 % Mean Corpuscular Volume 90.9 fL Mean Corpuscular Hemoglobin 32.2 pg Mean Corpuscular Hemoglobin Concent 35.4 g/dl Platelet Count 63 K/uL Mean Platelet Volume 11.3 fL RDW Standard Deviation 53.3 fL RDW Coefficient of Variation 15.9 % Neutrophils % (Manual) 36.3 % Lymphocytes % (Manual) 45.1 % Monocytes % (Manual) 10.6 % Eosinophils % (Manual) 8.0 % Neutrophils # (Manual) 1.37 K/uL Total Absolute Neutrophils 1.37 K/uL Lymphocytes # (Manual) 1.70 K/uL Total Absolute Lymphocytes 1.70 K/uL Monocytes # (Manual) 0.40 K/uL Eosinophils # (Manual) 0.30 K/uL Sodium Level 134 mmol/L Potassium Level 4.2 mmol/L Chloride Level 102 mmol/L Carbon Dioxide Level 26 mmol/L Anion Gap 6.0 mmol/L Blood Urea Nitrogen 24 mg/dl Creatinine 1.78 mg/dl Est Creatinine Clear Calc Drug Dose 49.9 ml/min Estimated GFR () 48.7 Estimated GFR (Non- 42.0 BUN/Creatinine Ratio 13.3 Random Glucose 85 mg/dl Calcium Level 7.4 mg/dl Total Bilirubin 1.2 mg/dl Aspartate Amino Transf (AST/SGOT) 85 U/L Alanine Aminotransferase (ALT/SGPT) 59 U/L Alkaline Phosphatase 164 U/L Total Protein 6.7 gm/dl Albumin 2.2 gm/dl Globulin 4.5 gm/dl Albumin/Globulin Ratio 0.5 Assessment and Plan Ascites--trace ascites not amenable to tap. With minimal ascites almost never get SBP. Suspect fever from process causing scrotal edema Fever--as above abd bloating--stable Cirrhosis--secondary to hep C esophageal varices on CT--suggest outpt EGD, mesenteric vein doppler u/s normal rectal thickening on CT--suggest outpt colonoscopy GB thickening no clinical evidence of cholecysititsi abdominal adenopathy--often seen in setting of cirrhosis but can be follwed in 6 mos to check on stability. leukopenia--likely from splenomegaly thrombocytopenia--from splenomegaly splenomegaly secondary to cirrhosis hep C--as outpt reconsider treatment of hep C scrotal swelling--per admitting team and urology Recommend outpt GI followup for hep C cirrhosis and needs EGD for varices and colo for rectal thickening as outpt. Will sign off. Pt told to call office for appt on DC.
[2017-07-31 15:25] VITALS: BP 99/61; PULSE 80; TEMP 36.5; O2SAT 96
--- NOTE | 2017-07-31 16:47 | DIAGNOSTIC IMAGING REPORT ---
(RENAL)RETROPERITON COMP HISTORY: Pain as above COMPARISON: None. FINDINGS: Right kidney: Maximum dimension 10.6 cm. No evidence for hydronephrosis. Normal corticomedullary differentiation and cortical thickness. Left kidney: Maximum dimension 13.2 cm. No evidence for hydronephrosis. Normal corticomedullary differentiation and cortical thickness. Bladder: No bladder wall thickening. The bilateral ureteral jets were identified. IMPRESSION: Normal renal ultrasound. The above report was generated using voice recognition software. It may contain grammatical, syntax or spelling errors. Electronically signed by: Roger Sanches M.D. 07/31/2017 4:45 PM Dictated Date/Time: 07/31/2017 4:44 PM
[2017-07-31] MEDS ORDERED: SODIUM CHLORIDE 0.9% 1000ML 1,000 ML IV SCH (18:30)
--- NOTE | 2017-07-31 18:35 | Family Medicine Progress Note ---
Progress Note Date of Service Jul 31, 2017. Subjective Pt evaluation today including: conversation w/ patient Pain: Patient reports chronic back pain PO Intake: Tolerating PO diet well Voiding: no voiding problems Patient reports he is feeling much better than yesterday. States his swelling has diminished nicely both in the scrotum and peripherally Constitutional: No fever, No chills, No sweats, No weight loss, No weakness , No fatigue, No problem reported Abdomen: No pain, No nausea, No vomiting, No diarrhea, No constipation, No GI bleeding, No problem reported Male : + slowing stream, No dysuria, No urinary frequency, No incontinence , No nocturia more than once/night, No hematuria, No sexual dysfunction, No problem reported All Other Systems: Reviewed and Negative Medications Current Inpatient Medications Medications (Trade) Dose Ordered Sig/Ai Route Start Time Stop Time Status Last Admin Dose Admin Ioversol (Optiray 320) 100 ml UD PRN IV 07/29/17 22:00 08/02/17 21:59 Enoxaparin Sodium (Lovenox Inj) 40 mg Q24H SQ 07/30/17 09:00 08/29/17 08:59 07/31/17 10:04 40 MG Acetaminophen (Tylenol Tab) 650 mg Q4H PRN PO 07/30/17 03:15 08/29/17 03:14 Al Hydrox/Mg Hydrox/Simethicone (Maalox Max Susp) 15 ml Q4H PRN PO 07/30/17 03:15 08/29/17 03:14 Magnesium Hydroxide (Milk Of Magnesia Susp) 30 ml Q6H PRN PO 07/30/17 03:15 08/29/17 03:14 Polyethylene (Miralax Powder Packet) 17 gm DAILY PRN PO 07/30/17 03:15 08/29/17 03:14 Ondansetron HCl (Zofran Inj) 4 mg Q6H PRN IV 07/30/17 03:15 08/29/17 03:14 Miscellaneous Information (Consult) 1 ea UD PRN N/A 07/30/17 03:15 08/29/17 03:14 Lisinopril (Zestril Tab) 40 mg QAM PO 07/30/17 09:00 08/29/17 08:59 07/31/17 10:04 40 MG Lorazepam (Ativan Tab) 1 mg BID PO 07/30/17 09:00 08/29/17 08:59 07/31/17 09:13 1 MG Oxycodone HCl (Roxicodone Immediate Rel Tab) 5 mg Q8H PRN PO 07/30/17 03:15 08/13/17 03:14 07/31/17 19:23 5 MG Piperacillin Sod/ Tazobactam Sod 3.375 gm/Dextrose 115 ml @ 28.75 mls/ hr Q8H IV 07/30/17 06:00 08/09/17 05:59 07/31/17 14:25 28.75 MLS/HR Pantoprazole Sodium (Protonix Tab) 40 mg QAM PO 07/31/17 09:00 08/03/17 08:59 07/31/17 10:04 40 MG Hydrochlorothiazide (Hydrochlorothiazide Tab) 25 mg DAILY PO 07/31/17 09:00 08/30/17 08:59 07/31/17 10:04 25 MG Oxycodone HCl (Roxicodone Immediate Rel Tab) 10 mg Q8H PRN PO 07/31/17 14:15 08/14/17 14:14 Sodium Chloride 1,000 ml @ 75 mls/hr [id number] IV 07/31/17 18:30 08/01/17 00:29 07/31/17 20:06 75 MLS/HR Objective Vital Signs Date Time Temp Pulse Resp B/P (MAP) Pulse Ox O2 Delivery O2 Flow Rate FiO2 07/31/17 15:25 Room Air 07/31/17 15:25 36.5 80 18 99/61 (74) 96 Room Air 07/31/17 08:19 96 Room Air 07/31/17 07:49 36.8 78 18 120/84 (96) 96 Room Air 07/31/17 07:20 Room Air 07/30/17 23:50 Room Air 07/30/17 23:15 36.7 77 18 121/75 (90) 99 Room Air Physical Exam General Appearance: WD/WN, no apparent distress Eyes: normal inspection, PERRL, EOMI, sclerae normal ENT: hearing grossly normal Neck: supple, no adenopathy, no carotid bruits, trachea midline Respiratory/Chest: chest non-tender, lungs clear, normal breath sounds, no respiratory distress, no accessory muscle use Cardiovascular: regular rate, rhythm, no edema, no gallop, no JVD, no murmur Abdomen: normal bowel sounds, non tender, soft, no pulsatile mass, + distended Extremities: normal range of motion, non-tender, normal inspection, no pedal edema, no calf tenderness Neurologic/Psychiatric: 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 Olivier is a 56 year old male with a past medical history of cirrhosis secondary to hepatitis C, antiphospholipid syndrome s/p CVA, hx of gastric ulcer , hypertension, cerebellar atrophy and resultant ataxia, avascular necrosis of both hips who presented to [facility] with testicular swelling, abdominal bloating, intermittent fevers and slowed urinary stream. Abdominal Distention - thank you to GI for consult and recommendations - trace ascites - likely not SBP - esophageal varices on CT - address in outpatient with EGD. - rectal thickening on CT - outpatient colonoscopy - abdominal adenopathy - recheck in 6 months as outpatient - outpatient treatment for hep C - GB thickening on CT - likely artifact - Renal ultrasound negative - furosemide 40mg IV x 2 given Cr bumped today to 1.78, BUN to 24; will gently rehydrated at 75 ml/hr x 6 hours - salt restricted diet - monitor I/O's Scrotal Swelling - thank you to urology for consult - likely secondary to cirrhosis & portal hypertension - may have an element of epididymitis - currently being treated with IV zosyn - can transition to cipro 500mg PO BID on discharge for a total treatment duration of 10 days - urine shows microscopic hematuria & KUB shows bilateral nephrocalcinosis - will need cystoscopy as outpatient to rule out bladder cancer given hx of smoking and hematuria - urine cytology negative - UA today showed normal SG with some casts R sided leg swelling - negative Dopplers for DVT - likely due to fluid overload - resolved at this time - will continue to monitor HTN - continue lisinopril and HCTZ History of Gastric Ulcer - continue home dose of protonix 40mg daily Depression - continue celexa Chronic low back pain secondary to cerebellar atrophy/avascular necrosis - continue oxycodone q8h prn with burst dose prn - uses wheelchair occasionally when needed - PT/OT ordered DVT prophylaxis: Lovenox 40mg subq Code Status: Full Disposition: likely d/c tomorrow Resident Tracking Resident Involvement: Resident Care Provided Care Provided: Adult Hospital Medicine
[2017-07-31 23:30] VITALS: BP 127/72; PULSE 75; TEMP 36.7; O2SAT 96
[2017-08-01] MEDS ORDERED: OXYCODONE HCL IR 5 MG TAB (IMMEDIATE RELEASE) PO STA (01:06)
[2017-08-01] MEDS: OXYCODONE HCL IR 5 MG TAB (IMMEDIATE RELEASE) PO PRN ×2 (06:39→15:14)
[2017-08-01 06:48] LABS: HEMATOCRIT 33.3 % (42-52); HEMOGLOBIN 11.5 g/dL (14.0-18.0); MEAN CELL VOLUME 91.2 fL (80-100); MEAN CORPUSCULAR HEMOGLOBIN 31.5 pg (25-34); MEAN CORPUSCULAR HGB CONC 34.5 g/dl (32-36); RED CELL DISTRIBUTION WIDTH CV 15.2 % (11.5-14.5); RED CELL DISTRIBUTION WIDTH SD 51.7 fL (36.4-46.3); WHITE BLOOD COUNT 3.63 K/uL (4.8-10.8)
[2017-08-01 06:51] LABS: MEAN PLATELET VOLUME 11.4 fL (7.4-10.4); PLATELET COUNT 53 K/uL (130-400)
[2017-08-01 07:20] LABS: CALCIUM 7.4 mg/dl (8.5-10.1); CREATININE 1.54 mg/dl (0.60-1.40); POTASSIUM 4.5 mmol/L (3.5-5.1)
[2017-08-01 07:33] VITALS: BP 113/67; PULSE 74; TEMP 36.6; O2SAT 97
[2017-08-01] MEDS: PANTOprazole SOD 40 MG TAB PO SCH (08:55)
[2017-08-01] MEDS: HYDROCHLOROTHIAZIDE 25 MG TAB PO SCH (08:55)
[2017-08-01] MEDS: LISINOPRIL 40 MG TAB PO SCH (08:55)
[2017-08-01] MEDS: LORAZEPAM 1 MG TAB PO SCH (08:55)
[2017-08-01] MEDS: ENOXAPARIN 40 MG/0.4 ML SYR SQ SCH (08:56)
[2017-08-01] MEDS ORDERED: CIPROFLOXACIN 500 MG TAB PO SCH (09:00)
[2017-08-01 11:16] VITALS: BP 113/67; PULSE 74; TEMP 36.6; O2SAT 97
[2017-08-01] MEDS ORDERED: CPR500 PO (13:27)
--- NOTE | 2017-08-01 13:39 | Discharge Instructions ---
Discharge Instructions Date of Service Aug 01, 2017. Admission Reason for Admission: Scrotal Edema Discharge Discharge Diagnosis / Problem: Scrotal edema, hepatitis C, avascular necrosis Discharge Goals Goal(s): Decrease discomfort, Improve function, Improve disease control, Prevent Disease Progression Activity Recommendations Activity Limitations: per Instructions/Follow-up section . Instructions / Follow-Up Instructions / Follow-Up During this admission you were evaluated for testicular swelling, peripheral edema, abdominal bloating, intermittent fevers and slowed urinary stream. For the abdominal swelling, the GI team was consulted who concluded this was likely related to your liver problems. You had sever ultrasounds and scans performed and these were deemed overall normal. They recommend you follow up as an outpatient with them for EGD and colonoscopy studies as well as to discuss your treatment of your hepatitis C. We had given you some diuretic, or water pill, to help with the swelling while in the hospital. This may or may not be restarted by your primary care doctor. When you see your PCP this week, you should have some labwork done to assess your kidney function which can be altered by these water pills. You should continue a low salt diet and water restrictions to 7 cups of water per day as described by your nurse. Regarding the scrotal swelling, urology was consulted and they also thought this was related to your cirrhosis and portal HTN. There is the possibility of there being an associated infection, which is why you will need to take your cipro tablet twice daily tonight and for the next 6 days. This has been sent to your pharmacy in [place]. Urology would like to see you as an outpatient to have a scope of your bladder performed. An ultrasound of your kidneys did not reveal any backup of fluid into your kidneys. Continue all of your other home medications as prescribed. If your symptoms return, please see your PCP or return to the ER. Keep your scheduled appointment with Dr. Fung this week. He will be made aware of your visit and his office can help set up your appointments with gastro and urology. Current Hospital Diet Patient's current hospital diet: Low Sodium Diet (2gm Na) Discharge Diet Recommended Diet: Low Sodium Diet (2gm Na) Fluid Restriction: 1800 ml (7 cups) Pending Studies Studies pending at discharge: no Medical Emergencies . Who to Call and When: Medical Emergencies: If at any time you feel your situation is an emergency, please call 911 immediately. . Non-Emergent Contact Non-Emergency issues call your: Primary Care Provider . . "Provider Documentation" section prepared by Beatriz Bang. . VTE Core Measure Inpt VTE Proph given/why not?: Enoxaparin (Lovenox)SQ
--- NOTE | 2017-08-01 15:02 | Discharge Summary ---
Discharge Summary Date of Service Aug 01, 2017. Discharge Summary Admission Date: Jul 30, 2017 at 03:20 Discharge Date: Aug 01, 2017 Discharge Disposition: Home Principal Diagnosis: Scrotal swelling/?epididymitis Problems/Secondary Diagnoses: Hepatitis C hx of gastric ulcer Cerebellar atrophy and resultant ataxia avascular necrosis of both hips Abdominal Distention R sided leg swelling HTN Depression Chronic low back pain secondary to avascular necrosis antiphospholipid syndrome s/p CVA Immunizations: Have You Had Influenza Vaccine: No History of Tetanus Vaccine?: No History of Pneumococcal: No History of Hepatitis B Vaccine: No Consultations: Gastroenterology Urology Medication Reconciliation New Medications: Ciprofloxacin (Ciprofloxacin HCl) 500 Mg Tab 500 MG PO BID for 6 Days, #13 TAB Continued Medications: Hydrochlorothiazide (Hctz) 50 Mg Tab 25 MG PO DAILY, TAB Lisinopril (Zestril) 40 Mg Tab 40 MG PO QAM Lorazepam (Ativan) 1 Mg Tab 1 MG PO BID, TAB Oxycodone Ir (Roxicodone Ir) 5 Mg Tab 5 MG PO Q8H PRN for Pain, TAB Discharge Exam ROS Constitutional: No fever, No chills, No sweats, No weight loss, No weakness , No fatigue, No problem reported Abdomen: No pain, No nausea, No vomiting, No diarrhea, No constipation, No GI bleeding, No problem reported Male : + slowing stream, No dysuria, No urinary frequency, No incontinence , No nocturia more than once/night, No hematuria, No sexual dysfunction, No problem reported All Other Systems: Reviewed and Negative PE General Appearance: WD/WN, no apparent distress Eyes: normal inspection, PERRL, EOMI, sclerae normal ENT: hearing grossly normal Neck: supple, no adenopathy, no carotid bruits, trachea midline Respiratory/Chest: chest non-tender, lungs clear, normal breath sounds, no respiratory distress, no accessory muscle use Cardiovascular: regular rate, rhythm, no edema, no gallop, no JVD, no murmur Abdomen: normal bowel sounds, non tender, soft, no pulsatile mass, + distended Extremities: normal range of motion, non-tender, normal inspection, no pedal edema, no calf tenderness Neurologic/Psychiatric: msw II-XII nml as tested, no motor/sensory deficits, alert, normal mood/affect, oriented x 3 Skin: normal color, warm/dry, no rash Hospital Course Mr. Olivier is a 56 year old male with a past medical history of cirrhosis secondary to hepatitis C, antiphospholipid syndrome s/p CVA, hx of gastric ulcer , hypertension, cerebellar atrophy and resultant ataxia, avascular necrosis of both hips who presented to [facility] with testicular swelling, abdominal bloating, intermittent fevers and slowed urinary stream. Abdominal Distention Gastroenterology consulted, outpatient follow up required: - trace ascites - likely not SBP - esophageal varices on CT - address in outpatient with EGD. - rectal thickening on CT - outpatient colonoscopy - abdominal adenopathy - recheck in 6 months as outpatient - outpatient treatment for hep C - GB thickening on CT - likely artifact - furosemide 40mg IV x 2 given Cr bumped yesterday to 1.78, BUN to 24; trended down to 1.54 after gentle rehydration at 75 ml/hr x 6 hours Use discretion for restarting lasix Recommend repeat BMP - salt restricted diet, <2G - Recommend fluid restriction of 1.8L/day Scrotal Swelling - Urology consulted, patient requires outpatient follow up for cystoscopy: - likely secondary to cirrhosis & portal hypertension - may have an element of epididymitis: discharged on cipro 500mg PO BID x 1 week. - urine shows microscopic hematuria & KUB shows bilateral nephrocalcinosis; renal ultrasound negative for hydronephrosis - will need cystoscopy as outpatient to rule out bladder cancer given hx of smoking and hematuria - urine cytology negative R sided leg swelling - negative Dopplers for DVT, likely due to fluid overload - resolved after diuresis HTN - continue lisinopril and HCTZ History of Gastric Ulcer - continue home dose of protonix 40mg daily Depression - continue celexa Chronic low back pain secondary to cerebellar atrophy/avascular necrosis - continue oxycodone q8h prn with burst dose prn - uses wheelchair occasionally when needed Total Time Spent: Less than 30 minutes This includes examination of the patient, discharge planning, medication reconciliation, and communication with other providers. Discharge Instructions Please refer to the electronic Patient Visit Report (Discharge Instructions) for additional information. Follow-Up Patient has appointment with PCP, Dr. Fung later this week He should have follow up appointments with both GI and Urology Additional Copies To Pietro Fung D.O. Resident Tracking Resident Involvement: Resident Care Provided Care Provided: [facility] Medicine
== END 2017-08-01 15:25 | disposition home or self-care (01) | DRG 433 ==
LOC: C.EDB 21:25 → C.3E 07-30 03:20 → ENRESERV 07-30 04:10
PROVIDERS: ADMIT Hospitalist; ATTEND Hospitalist
DX: K74.60 Unspecified cirrhosis of liver (principal); G11.9 Hereditary ataxia, unspecified; K21.9 Gastro-esophageal reflux disease without esophagitis; I10 Essential (primary) hypertension; F17.200 Nicotine dependence, unspecified, uncomplicated; N45.1 Epididymitis; Z86.73 Personal history of transient ischemic attack (TIA), and cerebral infarction without residual deficits; F32.9 Major depressive disorder, single episode, unspecified; G89.29 Other chronic pain; M54.5 Low back pain; B19.20 Unspecified viral hepatitis C without hepatic coma; D72.819 Decreased white blood cell count, unspecified; Z88.8 Allergy status to other drugs, medicaments and biological substances; Z83.3 Family history of diabetes mellitus; Z80.9 Family history of malignant neoplasm, unspecified; Z82.49 Family history of ischemic heart disease and other diseases of the circulatory system; Z84.1 Family history of disorders of kidney and ureter

== ENCOUNTER 2017-08-12 12:41 | Emergency (ER) | payer OTHER ==
[~2017-08-12] VITALS: Ht 180.3 cm; Wt 82.0 kg
[~2017-08-12 12:41] MED LIST changes: -ASPI81TA28 PO; +CPR500 PO
[2017-08-12 12:49] VITALS: TEMP 36.6; Ht 180.3 cm; Wt 82.0 kg
[2017-08-12] MEDS ORDERED: RANITIDINE HCL 50 MG/100 ML D5W IV STA (13:03)
[2017-08-12] MEDS ORDERED: METHYLPREDNISOLONE 125 MG VIAL IV STA (13:03)
[2017-08-12] MEDS ORDERED: DiphenhydrAMINE HCL 50 MG/ML VIAL IV STA (13:03)
[2017-08-12 13:20] LABS: HEMATOCRIT 37.7 % (42-52); MEAN CELL VOLUME 90.8 fL (80-100); MEAN CORPUSCULAR HEMOGLOBIN 31.3 pg (25-34); MEAN CORPUSCULAR HGB CONC 34.5 g/dl (32-36); RED CELL DISTRIBUTION WIDTH CV 14.8 % (11.5-14.5); RED CELL DISTRIBUTION WIDTH SD 49.5 fL (36.4-46.3); WHITE BLOOD COUNT 4.38 K/uL (4.8-10.8)
[2017-08-12 13:27] LABS: MEAN PLATELET VOLUME 10.5 fL (7.4-10.4); PLATELET COUNT 70 K/uL (130-400)
[2017-08-12 13:35] LABS: ALBUMIN 2.5 gm/dl (3.4-5.0); CALCIUM 8.5 mg/dl (8.5-10.1); CREATININE 1.25 mg/dl (0.60-1.40); POTASSIUM 3.7 mmol/L (3.5-5.1)
[2017-08-12 13:37] LABS: TOTAL PROTEIN 8.1 gm/dl (6.4-8.2)
[2017-08-12 13:38] LABS: BASO % 0.7 %; BASO ABS # 0.03 K/uL (0-0.2); EOS % 7.3 %; EOS ABS # 0.32 K/uL (0-0.5); IG# 0.01 K/uL (0.00-0.02); LYMPH % 42.5 %; LYMPH ABS # 1.86 K/uL (1.2-3.4); MONO % 10.5 %; MONO ABS # 0.46 K/uL (0.11-0.59); NEUT % 38.8 %
[2017-08-12] MEDS ORDERED: HYDR25TA4 PO (14:10)
[2017-08-12] MEDS ORDERED: PANT40TA PO (14:11)
[2017-08-12] MEDS ORDERED: OXYCODONE HCL IR 5 MG TAB (IMMEDIATE RELEASE) PO STA (14:29)
--- NOTE | 2017-08-12 14:57 | EMERGENCY ROOM VISIT NOTE ---
ED Visit Note First contact with patient: 13:03 This Patient was discussed with the physician medication assistant, Pierre Capellan PA-C. The pertinent historical and physical exam findings were confirmed. I agree with the studies ordered and with the interpretations of these studies. I agree with the disposition and care plan.
[2017-08-12] MEDS ORDERED: PRED50TA PO (15:43)
[2017-08-12 16:10] VITALS: BP 146/89; PULSE 89; O2SAT 98
--- NOTE | 2017-08-22 11:08 | EMERGENCY ROOM VISIT NOTE ---
History First contact with patient: 13:03 Chief Complaint: ALLERGIC REACTION Stated Complaint: SWOLLEN LIPS, SIDE OF CHEEK History of Present Illness The patient is a 56 year old male who presents to the Emergency Room with complaints of swelling of his upper and lower lips and right cheek. He states everything was normal last night. He denies eating any unusual or spicy foods. He denies any prior history of similar angioedema. He states he did stop his HCTZ and lisinopril on his own a few weeks ago. He started it again a few days ago. No other new medications. He awoke around 4 AM and noticed that his lips and cheek were swollen. He denies any change in his voice. No difficulty breathing. He states he did have a difficulty drinking his coffee this morning because it kept running out of his mouth. He did eat breakfast. His son accompanies him today. No trauma to his face. He did not eat any hot or spicy foods. No other areas of edema. He denies any rash. Review of Systems REVIEW OF SYSTEM: HEENT: No dizziness, visual problems, hearing loss, or tinnitus. There is no difficulty swallowing. PULMONARY: No cough, shortness of breath, sputum production or hemoptysis. CARDIOVASCULAR: No chest pain, palpitations, shortness of breath or peripheral edema. GASTROINTESTINAL: No diarrhea or constipation. GENITOURINARY: No dysuria, frequency, urgency or nocturia. NEUROLOGIC: No weakness, muscle tenderness, epilepsy or history of neurological problems. MUSCULOSKELETAL: No history of joint tenderness/swelling. Positive history of arthritis and arthralgias. SKIN: No rashes or lesions. PSYCHIATRIC: No history of depression or mental illness. ENDOCRINE: No history of diabetes, thyroid disorders, or abnormal hair growth. Past Medical/Surgical History Medical Problems: (1) Abdominal pain (2) Cerebellar atrophy (3) CEREBRAL ART OCCLUSION NOS W CEREBRAL INFARCTION (4) Cerebral Art Occlusion Nos W Cerebral Infarction (5) ESOPHAGEAL REFLUX (6) Hematemesis/vomiting blood (7) HTN (hypertension) Family History Cancer Diabetes mellitus Gallbladder disease Heart disease Hypertension Kidney disease Kidney stones Lung disease Social History Smoking Status: Current Every Day Smoker Alcohol Use: none Drug Use: none Marital Status: Housing Status: lives with family Occupation Status: disabled Current/Historical Medications Scheduled Hydrochlorothiazide (Hctz), 1 TAB PO DAILY Lisinopril (Zestril), 40 MG PO QAM Lorazepam (Ativan), 1 MG PO BID Pantoprazole (Protonix), 40 MG PO DAILY Scheduled PRN Oxycodone Ir (Roxicodone Ir), 5 MG PO Q8H PRN for Pain Physical Exam Vital Signs Date Time Temp Pulse Resp B/P (MAP) Pulse Ox O2 Delivery O2 Flow Rate FiO2 08/12/17 16:10 89 18 146/89 98 Room Air 08/12/17 15:11 81 20 138/94 100 Room Air 08/12/17 14:00 78 20 140/91 79 Room Air 08/12/17 13:49 85 20 142/89 97 Room Air 08/12/17 13:13 Room Air 08/12/17 12:49 36.6 97 17 136/86 98 Room Air Physical Exam Gen.: Well-developed, well-nourished, middle-aged white male, in no acute distress. Visible swelling of his lips and right cheek. Alert and oriented. Skin:Warm and dry with good turgor. No rashes or lesions. No ecchymosis or erythema. He has significant edema of the upper and lower lips. Significant edema of the right cheek. No involvement of the left cheek or rest of the face. No involvement of the tongue. The patient is not diaphoretic. No abrasions. HEENT: Normocephalic atraumatic. Eyes PERRLA, EOMI. No conjunctiva or scleral injection. Ears TMs intact bilaterally with good light reflexes. No erythema or bulging. No hemotympanum. Canals are patent. Nares patent bilaterally without turbinate enlargement. No significant drainage. No epistaxis. Oropharynx without erythema or exudate. Uvula midline, oral mucosa moist. No lesions present. Upper and lower lips are swollen as stated. Tongue is not swollen. He is able to swallow. No uvular edema. He does have swelling of the right cheek without palpable abscess. Poor dentition with multiple decaying teeth. Again, no palpable abscess. Gum lines are nontender. Her: Heart RRR. No MGR. Peripheral pulses are 2+. Lungs: Lungs are clear to auscultation. No crackles rhonchi or wheezing. Good air movement. The patient is able to take a deep breath. Abdomen: Abdomen was inspected, auscultated, and palpated. Bowel sounds present x 4. Soft, nontender to palpation. No hepato-splenomegaly. No masses noted. No rebound. Musculoskeletal: Gross motor function of the upper and lower extremities is intact and unremarkable. Medical Decision & Procedures Laboratory Results 08/12/17 13:10 Red Blood Count 4.15, Mean Corpuscular Volume 90.8, Mean Corpuscular Hemoglobin 31.3, Mean Corpuscular Hemoglobin Concent 34.5, Mean Platelet Volume 10.5, Neutrophils (%) (Auto) 38.8, Lymphocytes (%) (Auto) 42.5, Monocytes (%) (Auto) 10.5, Eosinophils (%) (Auto) 7.3, Basophils (%) (Auto) 0.7, Neutrophils # (Auto ) 1.70, Lymphocytes # (Auto) 1.86, Monocytes # (Auto) 0.46, Eosinophils # (Auto ) 0.32, Basophils # (Auto) 0.03 08/12/17 13:10 Test 08/12/17 13:10 White Blood Count 4.38 K/uL (4.8-10.8) Red Blood Count 4.15 M/uL (4.7-6.1) Hemoglobin 13.0 g/dL (14.0-18.0) Hematocrit 37.7 % (42-52) Mean Corpuscular Volume 90.8 fL (80-100) Mean Corpuscular Hemoglobin 31.3 pg (25-34) Mean Corpuscular Hemoglobin Concent 34.5 g/dl (32-36) Platelet Count 70 K/uL (130-400) Mean Platelet Volume 10.5 fL (7.4-10.4) Neutrophils (%) (Auto) 38.8 % Lymphocytes (%) (Auto) 42.5 % Monocytes (%) (Auto) 10.5 % Eosinophils (%) (Auto) 7.3 % Basophils (%) (Auto) 0.7 % Neutrophils # (Auto) 1.70 K/uL (1.4-6.5) Lymphocytes # (Auto) 1.86 K/uL (1.2-3.4) Monocytes # (Auto) 0.46 K/uL (0.11-0.59) Eosinophils # (Auto) 0.32 K/uL (0-0.5) Basophils # (Auto) 0.03 K/uL (0-0.2) RDW Standard Deviation 49.5 fL (36.4-46.3) RDW Coefficient of Variation 14.8 % (11.5-14.5) Immature Granulocyte % (Auto) 0.2 % Immature Granulocyte # (Auto) 0.01 K/uL (0.00-0.02) Anion Gap 6.0 mmol/L (3-11) Est Creatinine Clear Calc Drug Dose 71.1 ml/min Estimated GFR () 74.7 Estimated GFR (Non- 64.4 BUN/Creatinine Ratio 18.3 (10-20) Calcium Level 8.5 mg/dl (8.5-10.1) Total Bilirubin 0.8 mg/dl (0.2-1) Aspartate Amino Transf (AST/SGOT) 104 U/L (15-37) Alanine Aminotransferase (ALT/SGPT) 58 U/L (12-78) Alkaline Phosphatase 145 U/L (45-117) Total Protein 8.1 gm/dl (6.4-8.2) Albumin 2.5 gm/dl (3.4-5.0) Globulin 5.6 gm/dl (2.5-4.0) Albumin/Globulin Ratio 0.4 (0.9-2) CBC and chem panel were obtained. He has mild anemia. Mild renal insufficiency. Mild elevation in AST with normal ALT. Medications Administered Medications (Trade) Dose Ordered Sig/Ai Route Start Time Stop Time Status Last Admin Dose Admin Methylprednisolone Sodium Succinate (Solu-Medrol IV) 125 mg NOW STAT IV 08/12/17 13:03 08/12/17 13:06 DC 08/12/17 13:20 125 MG Diphenhydramine HCl (Benadryl Inj) 25 mg NOW STAT IV 08/12/17 13:03 08/12/17 13:06 DC 08/12/17 13:20 25 MG Ranitidine HCl (zANTac IV) 50 mg NOW STAT IV 08/12/17 13:03 08/12/17 13:06 DC 08/12/17 13:49 50 MG Oxycodone HCl (Roxicodone Immediate Rel Tab) 5 mg NOW STAT PO 08/12/17 14:29 08/12/17 14:30 DC 08/12/17 15:09 5 MG Solu-Medrol 125 mg IV, Benadryl 25 mg IV, Zantac 50 mg IV, OxyIR 5 mg by mouth ED Course Patient and his son were educated regarding today's findings. Conservative care measures were discussed. IV was established. Labs were obtained. He was given Zantac 50 mg IV, Benadryl 25 mg IV, and Solu-Medrol 125 mg IV. He was monitored in the ED. Lower lip and right cheek swelling decreased but did not fully resolve. Upper lip swelling did not change. He had no further swelling of the tongue or posterior oropharynx. Airway remained patent. Voice remained unchanged. He did complain of some generalized body aches. He states he normally takes OxyIR daily. He missed his dose due to being here at the ED. I did provide him with one tablet of OxyIR 5 mg orally. He felt well enough for discharge. Prescription was provided for additional prednisone 50 mg daily 5 days. Continue Benadryl 25 mg to be 6 hours until swelling resolves. Add Zantac 150 mg daily until swelling resolves. We will have him stop his lisinopril for now. Follow up with his PCP on Monday. Return to the ED immediately if he should have any voice changes, shortness of breath, difficult breathing, or increasing facial edema. His son is aware of today's plan. Patient was seen in conjunction with Dr. Boyd, who also evaluated the patient and concurred with today's diagnosis and treatment plan. Medical Decision Possibility of allergic reaction, dental abscess, airway compromise, sepsis, and anaphylaxis were considered among others [place] Drug Monitoring Program Search Results: no issues identified Medication Reconcilliation Current Medication List: was personally reviewed by me Blood Pressure Screening Blood pressure disposition: Elevated BP felt to be situational Impression Primary Impression: Angioedema of lips Departure Information Dispostion Home / Self-Care Condition GOOD Forms BENADRYL USE, HOME CARE DOCUMENTATION FORM, IMPORTANT VISIT INFORMATION Patient Instructions My [facility] [employer] Additional Instructions Zantac 150 mg once per day 5 days Benadryl 25 mg every 6 hours until swelling resolves Prednisone 50 mg once daily 5 days Cool liquids may decrease swelling Return to the ED for any acute changes, including worsening swelling, difficulty breathing, or change in voice Follow-up with your PCP on Monday to discuss a different antihypertensive Stop your lisinopril Problem Qualifiers Primary Impression: Angioedema of lips Encounter type: initial encounter Qualified Codes: T78.3XXA - Angioneurotic edema, initial encounter
== END 2017-08-12 16:18 | disposition home or self-care (01) ==
LOC: C.EDB 12:42 → C.EDA 16:18
DX: T78.3XXA Angioneurotic edema, initial encounter (principal); X58.XXXA Exposure to other specified factors, initial encounter; I10 Essential (primary) hypertension; G31.9 Degenerative disease of nervous system, unspecified; F17.200 Nicotine dependence, unspecified, uncomplicated; Z83.3 Family history of diabetes mellitus; Z83.79 Family history of other diseases of the digestive system; Z82.49 Family history of ischemic heart disease and other diseases of the circulatory system; Z84.1 Family history of disorders of kidney and ureter; Z83.6 Family history of other diseases of the respiratory system

== ENCOUNTER 2018-07-02 11:43 | Inpatient (IN) | END 2018-07-05 11:25 | disposition home or self-care (01) | LOC: ED 11:43 → 2S 14:34 → SUATTDRO 14:34 → 2S 15:30 → 4E 07-04 14:51 ==

== ENCOUNTER 2019-04-21 17:28 | Inpatient (IN) ==
[2019-04-21] MEDS ORDERED: HYDROmorphone INJ 0.5 MG/0.5 ML SYR IV STA (18:36)
[2019-04-21] MEDS ORDERED: SODIUM CHLORIDE 0.9% 500 ML IV SCH (18:45)
--- NOTE | 2019-04-21 19:00 | Emergency Department Note ---
Entered by Sandra Samuel acting as a scribe for Fede Dickson DO History of Present Illness General Chief complaint: Flank Pain Stated complaint: FLANK PAIN, FEVER, TROUBLE VOIDING, DARK URINE Time Seen by Provider: 04/21/19 18:13 Source: patient History of Present Illness Onset (ago): day(s) (3) Location: back Pain Consistency: + constant Maximum Pain Intensity: 8 Quality: + other (bilateral flank pain) Exacerbated By: + movement Associated symptoms: + other (dark urine, inability to hold bladder) The patient is a 58 year old male who presents to the Emergency Room with complaints of constant bilateral flank pain beginning 3 days ago. The patient states the pain is worse with movement, and notes he is hardly able to get up. The patient's son reports the patient has chronic back pain, but notes the patient states this pain is different. The patient's son reports the patient had dark urine and was unable to hold his bladder. He states the patient fell last week and injured his tailbone area. He reports the patient has a history of kidney stones. Home Medications Home Medications Medication Instructions Recorded Confirmed Type lorazepam 1 mg PO BID 07/02/18 04/21/19 History oxycodone 5 mg PO TID PRN 07/02/18 04/21/19 History pantoprazole 40 mg PO QAM 07/02/18 04/21/19 History lactulose 30 ml PO Q8H #15 ml 07/04/18 04/21/19 Rx amlodipine 5 mg PO QAM 09/14/18 04/21/19 History promethazine 25 mg PO Q6H PRN #20 tab 09/15/18 04/21/19 Rx hydrochlorothiazide 25 mg PO QAM 09/20/18 04/21/19 History Allergies Allergy/AdvReac Type Severity Reaction Status Date / Time lisinopril Allergy Severe angioedema Verified 04/21/19 18:05 blue dye Allergy Intermediate VISION Verified 04/21/19 18:05 DISTURBANCES citalopram Allergy Intermediate VISION Verified 04/21/19 18:05 DISTURBANCES duloxetine Allergy Intermediate VISION Verified 04/21/19 18:05 DISTURBANCES Past Med/Surg History Medical History Depression Hepatitis C Avascular necrosis of bones of both hips Seizure grand mal, last begining of 2018 Dementia Cerebellar atrophy (Chronic) HTN (hypertension) (Chronic) Cirrhosis (Chronic) Anemia Ascites Chronic back pain End stage liver disease 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--can not walk/stand at all History of anesthesia reaction difficulty waking d/t dementia History of bleeding ulcers Kidney stones hx Neurologic gait dysfunction Surgical History H/O inguinal hernia repair History of colonoscopy History of esophagogastroduodenoscopy (EGD) Family History Other DM II (diabetes mellitus, type II), controlled Heart disease Hypertension Kidney disease No family history of adverse response to anesthesia Social History Preferred Language: Kosovan Communication Ability: Effective Notary Public Required: No Beliefs That Will Affect Care: None Current Living Situation: Spouse Current Living Situation Comment: Lives with son and terminally ill Feels Safe at Home: Yes Smoking Status: Current every day smoker Tobacco Type: cigarettes ; Cigarettes Per Day: 1 PPD ; Second Hand Exposure: No ; Hx Alcohol Use: No Hx Substance Use: No Review of Systems See HPI for pertinent positives & negatives. and A total of 10 systems reviewed and were otherwise negative Physical Exam Vital Signs Vital Signs - 24 hr 04/21/19 17:43 04/21/19 18:18 04/21/19 18:50 Temperature 36.7 C Temperature Source Oral Sepsis Recent Fever Within 48 Hours No Sepsis Action Taken by Nursing No Action Required Pulse Rate 107 H Pulse Rate [Apical] 91 H Pulse Rate from SpO2 Sensor Pulse Rhythm Regular Pulse Strength Normal Respiratory Rate 16 14 Respiratory Effort / Characteristics Non-Labored Non-Labored Spontaneous Respiratory Depth Normal Normal Respiratory Pattern Regular Regular Blood Pressure 144/89 H Blood Pressure [Right Arm] 137/91 Blood Pressure Mean 107 Blood Pressure Mean [Right Arm] 106 Blood Pressure Position Sitting Pulse Oximetry 100 100 100 Oxygen Delivery Method Room Air Room Air Room Air 04/21/19 19:27 04/21/19 20:08 04/21/19 20:30 Temperature Temperature Source Sepsis Recent Fever Within 48 Hours Sepsis Action Taken by Nursing Pulse Rate 81 82 Pulse Rate [Apical] 85 Pulse Rate from SpO2 Sensor 81 82 Pulse Rhythm Pulse Strength Respiratory Rate 18 17 19 Respiratory Effort / Characteristics Non-Labored Spontaneous Respiratory Depth Respiratory Pattern Blood Pressure 136/82 144/96 H Blood Pressure [Right Arm] 132/86 Blood Pressure Mean 100 112 Blood Pressure Mean [Right Arm] 101 Blood Pressure Position Pulse Oximetry 100 98 98 Oxygen Delivery Method Room Air Room Air Room Air 04/21/19 21:00 Temperature Temperature Source Sepsis Recent Fever Within 48 Hours Sepsis Action Taken by Nursing Pulse Rate 90 Pulse Rate [Apical] Pulse Rate from SpO2 Sensor 89 Pulse Rhythm Pulse Strength Respiratory Rate 17 Respiratory Effort / Characteristics Respiratory Depth Respiratory Pattern Blood Pressure 142/88 H Blood Pressure [Right Arm] Blood Pressure Mean 106 Blood Pressure Mean [Right Arm] Blood Pressure Position Pulse Oximetry 100 Oxygen Delivery Method Room Air CONSTITUTIONAL/VITAL SIGNS: Reviewed / noted above. GENERAL: Non-toxic in appearance. Increased discomfort with movement. INTEGUMENTARY: Warm, dry, and [place]. HEAD: Normocephalic. EYES: without scleral icterus or trauma. ENT/OROPHARYNX: clear and moist. LYMPHADENOPATHY/NECK: Is supple without lymphadenopathy or meningismus. RESPIRATORY: Lungs clear and equal. CARDIOVASCULAR: Regular rate and rhythm. GI/ABDOMEN: Soft and nontender. No organomegaly or pulsatile mass. No rebound or guarding. Normal bowel sounds. EXTREMITIES: Warm and well perfused. BACK: No CVA tenderness. NEUROLOGICAL: Intact without focal deficits. PSYCHIATRIC: normal affect. MUSCULOSKELETAL: Normally developed with good muscle tone. Course 1825: Past medical records reviewed. The patient was evaluated in room B10. A complete history and physical exam was performed. 2100: Upon reevaluation, I discussed findings and results with the patient and his son. They verbalized agreement of the treatment plan. I spoke with Dr. Greenwood of the [facility] Hospitalist [facility]. The patient will be evaluated for further management and care. Administered Medications Discontinued Medications Hydromorphone HCl (Dilaudid) 0.5 mg IV NOW STA Stop: 04/21/19 18:37 Last Admin: 04/21/19 18:53 Dose: 0.5 mg Documented by: [id number] Sodium Chloride (Nss) 500 mls @ 999 mls/hr IV .Q31M LYNETTE Stop: 04/21/19 19:15 Last Infusion: 04/21/19 19:24 Dose: 0 mls/hr Documented by: [id number] Admin: 04/21/19 18:52 Dose: 999 mls/hr Documented by: [id number] Medical Decision Making Differential Diagnosis Differential diagnoses includes but is not limited to gastritis, peptic ulcer disease, GERD, gallbladder disease, pancreatitis, small bowel obstruction, acute coronary syndrome, pericarditis, ischemic bowel, irritable bowel disease, irritable bowel syndrome, appendicitis, diverticulitis, malignancy, hernia, urinary tract infection, torsion, perforation, trauma, infectious. Medical Records Attestation: I reviewed the patient's medical records. Home Medications Current Medication List: was personally reviewed by me Laboratory Data Attestation: I reviewed the patient's lab results. Result diagrams: 04/21/19 18:51 04/21/19 18:51 Lab Results 04/21/19 04/21/19 04/21/19 Range/Units 18:51 18:51 21:00 WBC 3.10 L (4.8-10.8) K/uL RBC 2.81 L (4.7-6.1) M/uL Hgb 8.7 L (14.0-18.0) g/dL Hct 25.2 L (42-52) % MCV 89.7 (80-100) fL MCH 31.0 (25-34) pg MCHC 34.5 (32-36) g/dL RDW Std Deviation 49.4 H (36.4-46.3) fL RDW Coeff of Justino 15.0 H (11.5-14.5) % Plt Count 27 L* (130-400) K/uL Immature Gran % (Auto) 0.3 % Neut % (Auto) 54.8 % Lymph % (Auto) 32.3 % Kendall % (Auto) 8.1 % Eos % (Auto) 4.2 % Baso % (Auto) 0.3 % Immature Gran # (Auto) 0.01 (0.00-0.02) K/uL Neut # (Auto) 1.70 (1.4-6.5) K/uL Lymph # (Auto) 1.00 L (1.2-3.4) K/uL Kendall # (Auto) 0.25 (0.11-0.59) K/uL Eos # (Auto) 0.13 (0-0.5) K/uL Baso # (Auto) 0.01 (0-0.2) K/uL Platelet Estimate SIGNIFIC DECREASED (Normal) Sodium 140 (136-145) mmol/L Potassium 2.9 L (3.5-5.1) mmol/L Chloride 108 H (98-107) mmol/L Carbon Dioxide 23 (21-32) mmol/L Anion Gap 9.0 (3-11) BUN 29 H (7-18) mg/dl Creatinine 3.24 H (0.6-1.4) mg/dl Est Cr Clr Drug Dosing Not Reportable Est GFR ( Amer) 23.3 Est GFR (Non-Af Amer) 20.1 BUN/Creatinine Ratio 8.9 L (10-20) Glucose 101 H (70-99) mg/dl Calcium 7.7 L (8.5-10.1) mg/dl Total Bilirubin 1.0 (0.2-1) mg/dl AST 43 H (15-37) U/L ALT 24 (12-78) U/L Alkaline Phosphatase 174 H (45-117) U/L Total Protein 7.1 (6.4-8.2) gm/dl Albumin 2.1 L (3.4-5.0) gm/dl Globulin 5.0 H (2.5-4.0) gm/dl Albumin/Globulin Ratio 0.4 L (0.9-2) Lipase 359 (73-393) U/L Urine Color [place] Urine Appearance Clear (Clear) Urine pH 6.0 (4.5-7.5) Ur Specific [place] 1.013 (1.000-1.030) Urine Protein 2+ H (Negative) Urine Glucose (UA) Negative (Negative) Urine Ketones Negative (Negative) Urine Blood 3+ H (Negative) Urine Nitrite Negative (Negative) Urine Bilirubin Negative (Negative) Urine Urobilinogen Negative (Negative) Ur Leukocyte Esterase Negative (Negative) Urine WBC (Auto) 5-10 H (0-5) /hpf Urine RBC (Auto) >30 H (0-4) /hpf U Hyaline Cast (Auto) 0 (0-5) /lpf U Epithel Cells (Auto) 0-5 (0-5) /lpf Urine Bacteria (Auto) Negative (Negative) Imaging Data Radiologist's Impression: Radiology results as stated below per my review and the radiologist's interpretation: CT SCAN OF THE ABDOMEN AND PELVIS WITHOUT IV CONTRAST CLINICAL HISTORY: Generalized abdominal pain. COMPARISON STUDY: Abdominal CT dated 09/10/2018. TECHNIQUE: CT scan of the abdomen and pelvis is performed from the lung bases to the proximal femora. Images are reviewed in the axial, sagittal, and coronal planes. IV contrast was not administered for this examination as per the referring clinician. A dose lowering technique was utilized adhering to the principles of ALARA. CT DOSE: 842.61 mGycm FINDINGS: Lung bases: The heart is normal in size and without pericardial effusion. The lung bases are clear noting bibasilar scarring/atelectasis. Liver: The unenhanced liver is cirrhotic in morphology and heterogeneous in attenuation. There is hypertrophy of the left lobe and caudate, as well as nodularity of the hepatic surface contour. There is no intrahepatic biliary ductal dilatation. There is a 4.6 x 3.9 cm heterogeneously hyperdense lesion in hepatic segment VII seen on image #114. Gallbladder: Mild gallbladder wall thickening is nonspecific and likely related to cirrhosis and ascites. Spleen: The spleen is enlarged measuring 15.8 cm in length. Pancreas: The unenhanced pancreas is grossly unremarkable. 2 punctate calcifications are noted in the uncinate process. Adrenal glands: Unremarkable. Kidneys: The unenhanced kidneys demonstrate mild cortical atrophy and are without hydronephrosis. There are at least 5 nonobstructing left renal calculi which measure up to 4 mm. There are at least 6 nonobstructing right renal calculi which measure up to 8mm. There is no evidence of contour deforming renal mass lesion. Abdominal vasculature: The abdominal aorta is normal in course and caliber noting mild atherosclerotic calcification. Bowel: There is moderate colonic fecal retention. No bowel obstruction is seen. The appendix is well-visualized and normal. Peritoneum: There is a small volume of abdominopelvic ascites. No intraperitoneal free air is seen. There is a fat and ascitic fluid containing umbilical hernia. Lymphadenopathy: There is a mildly enlarged right cardiophrenic lymph node which measures 13 mm in short axis. Mildly enlarged lymph nodes in the maria g hepatis are nonspecific and likely related to chronic liver disease. Pelvic viscera: The bladder, prostate, and seminal vesicles are normal as imaged. Skeletal structures: The skeletal structures are osteopenic. Mild to moderate lumbosacral spondylosis is observed. No lytic or blastic lesions are seen. There is evidence of avascular necrosis involving the proximal femora. IMPRESSION: 1. The liver is cirrhotic in morphology and heterogeneous in attenuation. 2. There is a 4.6 cm complex and heterogeneously hyperdense lesion in the right hepatic lobe. The appearance is consistent with hemorrhage, likely within an underlying hepatocellular carcinoma. Correlation with serum AFP levels is recommended, as is GI follow-up. 3. There is no evidence of intraperitoneal hemorrhage. 4. Splenomegaly and a small volume of abdominopelvic ascites indicate portal hypertension. 5. Bilateral nephrolithiasis. 6. There is avascular necrosis of the proximal femora. 7. Additional findings as above. Electronically signed by: Santos Alegria M.D. 04/21/2019 7:42 PM Blood Pressure Blood Pressure Findings: Elevated blood pressure Blood Pressure Disposition: further management by hospitalist MDM Narrative The patient is a 58-year-old male who presents to the ED with a chief complaint of bilateral low back and flank pain that started on . He reports a history of kidney stones. 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 His urine has been dark. His pain seems to be worse with movement. On my exam, he does not have any specific CVA tenderness. He has had a recent fall. He has a resolving bruise to the coccyx region. The patient otherwise does not have any abdominal tenderness on my exam. He is in no d istress. His vital signs are normal. The patient's hemoglobin today is 8.7. Platelet count is 27. Potassium is 2.9. His BUN is 29 and his creatinine is 3.24. Lipase was negative. The patient has evidence of acute renal failure based on recent labs. He also has a CT scan that shows a 4.6 cm hemorrhage within his liver concerning for hepatocellular carcinoma in the right lobe. The patient was given some IV fluids, IV Dilaudid for pain and oral potassium. He will be seen by the hospitalist for further evaluation and care. Impression & Plan Acute renal failure, Hepatitis C, Anemia, Pancytopenia, Hypokalemia, Hepatocellular carcinoma Discharge Plan Visit Data Chief Complaint: Flank Pain Stated Complaint: FLANK PAIN, FEVER, TROUBLE VOIDING, DARK URINE ED Provider: Fede Dickson Discharge Problem: Acute renal failure, Hepatitis C, Anemia, Pancytopenia, Hypokalemia, Hepatocellular carcinoma Patient Disposition: Being Evaluated by Hospitalist Forms Stand Alone Forms: My [facility] Prescriptions Prescriptions: No Action hydrochlorothiazide 25 mg Tablet 25 mg PO QAM RF: 0 amlodipine 5 mg Tablet 5 mg PO QAM RF: 0 promethazine 25 mg tablet 25 mg PO Q6H PRN (Reason: nausea and vomiting) Qty: 20 RF: 0 pantoprazole 40 mg tablet,delayed release (DR/EC) 40 mg PO QAM RF: 0 lorazepam 1 mg tablet 1 mg PO BID RF: 0 oxycodone 5 mg tablet 5 mg PO TID PRN (Reason: Pain) RF: 0 lactulose 20 gram/30 mL Solution 30 ml PO Q8H Qty: 15 RF: 0 Referrals Referrals: Pietro Fung DO [Primary Care Provider] - Discharge Problem: Acute renal failure Qualifiers: Acute renal failure type: unspecified Qualified Code(s): N17.9 - Acute kidney failure, unspecified Hepatitis C Qualifiers: Viral hepatitis chronicity: unspecified Hepatic coma status: without hepatic coma Qualified Code(s): B19.20 - Unspecified viral hepatitis C without hepatic coma Anemia Qualifiers: Anemia type: unspecified type Qualified Code(s): D64.9 - Anemia, unspecified The scribe's documentation has been prepared under my direction and personally reviewed by me in its entirety. I confirm that the note above accurately reflects all work, treatment, procedures, and medical decision making performed by me.
[2019-04-21 19:18] LABS: Alanine Aminotransferase 24 U/L (12-78); Albumin Level 2.1 gm/dl (3.4-5.0); Aspartate Aminotransferase 43 U/L (15-37); BUN Creatinine Ratio 8.9 (10-20); Blood Urea Nitrogen 29 mg/dl (7-18); Calcium 7.7 mg/dl (8.5-10.1); Carbon Dioxide 23 mmol/L (21-32); Chloride 108 mmol/L (98-107); Est GFR (African American) 23.3; Est GFR (Non-African American) 20.1; Glucose 101 mg/dl (70-99); Lipase 359 U/L (73-393); Potassium 2.9 mmol/L (3.5-5.1); Sodium 140 mmol/L (136-145)
[2019-04-21 19:21] LABS: Albumin Globulin Ratio 0.4 (0.9-2); Alkaline Phosphatase 174 U/L (45-117); Total Protein 7.1 gm/dl (6.4-8.2)
[2019-04-21 19:24] LABS: Basophils # (auto) 0.01 K/uL (0-0.2); Basophils % (auto) 0.3 %; Eosinophils # (auto) 0.13 K/uL (0-0.5); Eosinophils % (auto) 4.2 %; Hematocrit (blood only) 25.2 % (42-52); Hemoglobin 8.7 g/dL (14.0-18.0); Immature Granulocytes # (auto) 0.01 K/uL (0.00-0.02); Immature Granulocytes % (auto) 0.3 %; Lymphocytes % (auto) 32.3 %; Mean Corpuscular Hgb Conc 34.5 g/dL (32-36); Mean Corpuscular Volume 89.7 fL (80-100); Monocytes # (auto) 0.25 K/uL (0.11-0.59); Monocytes % (auto) 8.1 %; Neutrophils % (auto) 54.8 %; Platelet Count 27 K/uL (130-400); Platelet Estimate SIGNIFIC DECREASED (Normal); RDW Standard Deviation 49.4 fL (36.4-46.3); Red Blood Count 2.81 M/uL (4.7-6.1)
--- NOTE | 2019-04-21 19:44 | CT Scan Report ---
CT SCAN OF THE ABDOMEN AND PELVIS WITHOUT IV CONTRAST CLINICAL HISTORY: Generalized abdominal pain. COMPARISON STUDY: Abdominal CT dated 09/10/2018. TECHNIQUE: CT scan of the abdomen and pelvis is performed from the lung bases to the proximal femora. Images are reviewed in the axial, sagittal, and coronal planes. IV contrast was not administered for this examination as per the referring clinician. A dose lowering technique was utilized adhering to the principles of ALARA. CT DOSE: 842.61 mGycm FINDINGS: Lung bases: The heart is normal in size and without pericardial effusion. The lung bases are clear no ting bibasilar scarring/atelectasis. Liver: The unenhanced liver is cirrhotic in morphology and heterogeneous in attenuation. There is hyp ertrophy of the left lobe and caudate, as well as nodularity of the hepatic surface contour. There is no intrahepatic biliary ductal dilatation. There is a 4.6 x 3.9 cm heterogeneously hyperdense lesion in hepatic segment VII seen on image #114. Gallbladder: Mild gallbladder wall thickening is nonspecific and likely related to cirrhosis and asci seema. Spleen: The spleen is enlarged measuring 15.8 cm in length. Pancreas: The unenhanced pancreas is grossly unremarkable. 2 punctate calcifications are noted in the uncinate process. Adrenal glands: Unremarkable. Kidneys: The unenhanced kidneys demonstrate mild cortical atrophy and are without hydronephrosis. The re are at least 5 nonobstructing left renal calculi which measure up to 4 mm. There are at least 6 no nobstructing right renal calculi which measure up to 8mm. There is no evidence of contour deforming r enal mass lesion. Abdominal vasculature: The abdominal aorta is normal in course and caliber noting mild atheroscleroti c calcification. Bowel: There is moderate colonic fecal retention. No bowel obstruction is seen. The appendix is well -visualized and normal. Peritoneum: There is a small volume of abdominopelvic ascites. No intraperitoneal free air is seen. T here is a fat and ascitic fluid containing umbilical hernia. Lymphadenopathy: There is a mildly enlarged right cardiophrenic lymph node which measures 13 mm in sh ort axis. Mildly enlarged lymph nodes in the maria g hepatis are nonspecific and likely related to weather forecaster [place] liver disease. Pelvic viscera: The bladder, prostate, and seminal vesicles are normal as imaged. Skeletal structures: The skeletal structures are osteopenic. Mild to moderate lumbosacral spondylosis is observed. No lytic or blastic lesions are seen. There is evidence of avascular necrosis involving the proximal femora. IMPRESSION: 1. The liver is cirrhotic in morphology and heterogeneous in attenuation. 2. There is a 4.6 cm complex and heterogeneously hyperdense lesion in the right hepatic lobe. The alonso earance is consistent with hemorrhage, likely within an underlying hepatocellular carcinoma. Correlat ion with serum AFP levels is recommended, as is GI follow-up. 3. There is no evidence of intraperitoneal hemorrhage. 4. Splenomegaly and a small volume of abdominopelvic ascites indicate portal hypertension. 5. Bilateral nephrolithiasis. 6. There is avascular necrosis of the proximal femora. 7. Additional findings as above. Electronically signed by: Santos Alegria M.D. 04/21/2019 7:42 PM
[2019-04-21] MEDS ORDERED: POTASSIUM CHLORIDE 10 MEQ TABCR PO STA (20:54)
[2019-04-21 21:29] LABS: Appearance Urine Clear (Clear); Bacteria Urine Automated Negative (Negative); Bilirubin Urine Negative (Negative); Blood Urine 3+ (Negative); Cast Urine Automated 0 /lpf (0-5); Color Urine Orange; Epithelial Cell Urine Auto 0-5 /lpf (0-5); Glucose Urine UA Negative (Negative); Ketones Urine Negative (Negative); Leukocyte Esterase Urine Negative (Negative); Nitrite Urine Negative (Negative); Protein Urine 2+ (Negative); RBC Urine Automated >30 /hpf (0-4); Specific Gravity Urine 1.013 (1.000-1.030); Urobilinogen Urine Negative (Negative)
[2019-04-21] MEDS ORDERED: HYDROmorphone INJ 1 MG/ML SYRINGE IV STA (21:52)
--- NOTE | 2019-04-21 21:53 | History & Physical Report ---
Date of Service April 21, 2019 Assessment & Plan (1) Acute renal failure: Mr. 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 ED course: 500 mL normal saline bolus, 1.5 mg IV Dilaudid, 20 mEq p.o. potassium chloride Acute Kidney Injury -Admit to med/surg with telemetry monitoring -creatinine acutely elevated to 3.24 - baseline appears to be approx 1.4 - 1.6 -several b/l renal calculi seen on CT abdomen and pelvis, however they are all non-obstructive -UA w/out evidence for infection -Differential diagnosis: Hepatorenal syndrome, secondary to dehydration in the setting of continued hydrochlorothiazide use, mixed cryoglobulinemia -Urine cytology ordered -Hydrochlorothiazide held, avoid other nephrotoxic agents -will order ESR, complement panel, and cryoglobulins to further evaluate -Gentle hydration overnight with 25 g albumin x1 bag, and LR x1 bag at 80 mLs/hour -measure I/Os -Recheck BMP in the morning -Nephrology consulted Hepatic hemorrhage/liver cirrhosis/? Hepatocellular carcinoma -CT scan of abdomen and pelvis shows a cirrhotic liver with a 4.6 cm complex hyperdense lesion in the right hepatic lobe consistent with hemorrhage, likely with underlying hepatocellular carcinoma --> this is new from his prior CT scan in 08/2018 -GI consulted -AFP ordered w/AM labs -hemodynamically stable -Recheck H&H every 6 hours Bilateral flank pain -No evidence of obstructing kidney stones -History and physical examination suggestive of musculoskeletal cause of pain -Thoracic spine x-ray ordered given recent fall -Lidocaine patch ordered to back, home oxycodone regimen continued Anemia -Hemoglobin 8.7 on arrival, a decrease from his last hemoglobin of 10.8 -Anemia is chronic, related to his liver cirrhosis, however he may have had an acute drop given his hepatic hemorrhage -Trend H&H every 6 hours -Type and screen ordered, in case transfusion is necessary Thrombocytopenia -Platelets 27 on arrival, likely related to liver cirrhosis and splenomegaly -Continue to monitor Hypokalemia -Potassium 2.9 on arrival, received 20 mEq of KCl p.o. in ED -Will order another 20 mEq of p.o. replacement, and recheck in the morning History of seizures -Per patient's son, related to elevated ammonia levels -Last seizure was several months ago -Continue lactulose Hypertension -Hold home hydrochlorothiazide in the setting of LOUISE -Continue home amlodipine Anxiety -continue prn ativan Hx of duodenal ulcer -continue home pantoprazole Avascular necrosis of both hips -pt takes oxycodone TID prn at home for this - will continue this -pt ambulates using a wheelchair CODE STATUS: DNR, per discussion with patient DVT prophylaxis: SCDs, chemical prophylaxis contraindicated in the setting of hepatic hemorrhage, anemia and thrombocytopenia Disposition: Admit to med/surg with telemetry monitoring (2) Hepatitis C: (3) Anemia: (4) Hypokalemia: (5) Flank pain: (6) Familial cerebellar degeneration syndrome: (7) Tobacco use: (8) Seizure: (9) Avascular necrosis of bones of both hips: (10) HTN (hypertension): (11) Cirrhosis: (12) Thrombocytopenia: History of Present Illness Chief Complaint: Bilateral flank pain Primary Care Provider: Pietro Fung DO Mr. 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 He states that the pain came on gradually, and reports that it is only present upon movement. He states that he does not have any pain if he lays still, however if he tries to lean forward, the pain is severe. He states currently, his pain is a 6/10. He endorses a fall 2 weeks ago. He states he did not seek medical attention at this time. He reports he did not hit his head or lose consciousness. He also notes that he has had blood in his urine for the past 1 week. He states that his urine is pink in color, and he notes increased urinary urgency, however denies dysuria or the presence of clots. He states that he has had no past history of hematuria, but does have a history of kidney stones. He reports subjective fever, but did not take his temperature. He reports he has been eating and drinking well. He states that his bowels are moving normally. With regards to his liver cirrhosis, it is secondary to untreated hepatitis C, which was thought to be contracted from present tattoos. He also has a history of alcohol abuse, however states that he quit drinking 8 years ago. 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 Smokes 1 pack of cigarettes per day. Quit alcohol 8 years ago. No recreational drug use. Allergies Allergy/AdvReac Type Severity Reaction Status Date / Time lisinopril Allergy Severe angioedema Verified 04/21/19 18:05 blue dye Allergy Intermediate VISION Verified 04/21/19 18:05 DISTURBANCES citalopram Allergy Intermediate VISION Verified 04/21/19 18:05 DISTURBANCES duloxetine Allergy Intermediate VISION Verified 04/21/19 18:05 DISTURBANCES Home Medications Home Medications Medication Instructions Recorded Confirmed Type lorazepam 1 mg PO BID 07/02/18 04/21/19 History oxycodone 5 mg PO TID PRN 07/02/18 04/21/19 History pantoprazole 40 mg PO QAM 07/02/18 04/21/19 History lactulose 30 ml PO Q8H #15 ml 07/04/18 04/21/19 Rx amlodipine 5 mg PO QAM 09/14/18 04/21/19 History promethazine 25 mg PO Q6H PRN #20 tab 09/15/18 04/21/19 Rx hydrochlorothiazide 25 mg PO QAM 09/20/18 04/21/19 History Past Med/Surg History Medical History Depression Hepatitis C Avascular necrosis of bones of both hips Seizure grand mal, last begining of 2019 Dementia Cerebellar atrophy (Chronic) HTN (hypertension) (Chronic) Cirrhosis (Chronic) Anemia Ascites Chronic back pain End stage liver disease 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--can not walk/stand at all History of anesthesia reaction difficulty waking d/t dementia History of bleeding ulcers Kidney stones hx Neurologic gait dysfunction Surgical History H/O inguinal hernia repair History of colonoscopy History of esophagogastroduodenoscopy (EGD) Family History Other DM II (diabetes mellitus, type II), controlled Heart disease Hypertension Kidney disease No family history of adverse response to anesthesia Social History Preferred Language: Portuguese Communication Ability: Effective Mortuary Technician Required: No Beliefs That Will Affect Care: None Current Living Situation: Alone Current Living Situation Comment: Lives with son and terminally ill Feels Safe at Home: Yes Safety Concerns: Feels Safe At This Time Smoking Status: Current every day smoker Tobacco Type: cigarettes ; Cigarettes Per Day: 10 ; Second Hand Exposure: No ; Hx Alcohol Use: No Hx Substance Use: No Review of Systems Constitutional: + fever; no chills and no anorexia Respiratory: no cough, no dyspnea and no wheezing Cardiovascular: no chest pain, no syncope, no edema and no calf pain Gastrointestinal: no abdominal pain, no nausea, no vomiting and no change in bowel habits Genitourinary: + urinary frequency, + hematuria and + flank pain; no dysuria Musculoskeletal: + back pain Integumentary: no rash Neurologic: + gait abnormality and + falls Physical Exam Constitutional: WD/WN, vitals as above cooperative and comfortable Eyes: PERRL, conjunctivae normal, anicteric sclerae ENMT: external ear and nose normal, oropharynx normal (Mucous membranes dry) Respiratory: normal respiratory effort, lungs clear to auscultation Cardiovascular: RRR, no murmur, no edema Gastrointestinal (Abdomen): Inspection/Auscultation: + abdomen distended Percussion/Palpation: abdomen soft; abdomen nontender, no guarding and abdomen not rigid Musculoskeletal: no cyanosis or clubbing, extremities motor strength 5/5 Tender to palpation over midline thoracic region, extending to bilateral paraspinal muscles. Pain worsened with leaning forward. Skin: no rashes, warm and dry Neurologic: PERRL, EOMI, accommodation nl, no face palsy, no dysarthria Coordination intact, no asterixis noted Results & Data Vital Signs (Past 12 Hours) Vital Signs Temp Pulse Pulse Resp BP BP Pulse Ox 04/21/19 21:00 90 17 142/88 H 100 04/21/19 20:30 82 19 144/96 H 98 04/21/19 20:08 81 17 136/82 98 04/21/19 19:27 85 18 132/86 100 04/21/19 18:50 100 04/21/19 18:18 91 H 14 137/91 100 04/21/19 17:43 36.7 C 107 H 16 144/89 H 100 Supervising Physician Co-Signing Physician Notes Attending addendum: I have physically seen this patient, have supervised the medical residents activities, and agree with the H&P unless as otherwise noted. Assessment and Plan: Acute kidney injury on chronic kidney disease- Creatinine upon admission 3.24, with baseline 1.4-1.6. Primary differential is: UTI, ATN, hepatorenal syndrome, cardiorenal syndrome, MPGN and others. Further work-up to include ESR, cryoglobulins, complement levels. Hold HCTZ. LR at 80 mils per hour following with 5 g of albumin IV. Consult nephrology. Liver cirrhosis/hepatitis C/hepatic hemorrhage/question underlying hepatocellul ar carcinoma/splenomegaly/stable ascites/portal hypertension- Patient and family did not want aggressive therapy done. Consult gastroenterology. Follow serial H&H's. Check alpha-fetoprotein level. Chronic thrombocytopenia- Platelets 27, with range 2746. Coagulopathy- INR 1.4 and stable. Given vitamin K in ED. Anemia-- Hemoglobin 8.7. Range is 8.1-13.0 Likely being exacerbated by acute kidney injury. Remainder of orders and notations as noted. PG Care Time/CCT Total # of Minutes Spent Total Time Spent with Patient: Total time spent is greater than 50% in coordination of care (as documented) at patient's floor/unit and/or counseling patient: Resident Activity Tracking Resident Involvement: Resident Care Provided Care Provided: Adult Hospital Medicine (1) Acute renal failure Acute renal failure type: unspecified Qualified Code(s): N17.9 - Acute kidney failure, unspecified (2) Anemia Anemia type: unspecified type Qualified Code(s): D64.9 - Anemia, unspecified (3) Cirrhosis Ascites presence: with ascites Hepatic cirrhosis type: unspecified hepatic cirrhosis Qualified Code(s): K74.60 - Unspecified cirrhosis of liver; R18.8 - Other ascites (4) Hepatitis C Hepatic coma status: without hepatic coma Viral hepatitis chronicity: unspecified Qualified Code(s): B19.20 - Unspecified viral hepatitis C without hepatic coma (5) HTN (hypertension) Hypertension type: essential hypertension Qualified Code(s): I10 - Essential (primary) hypertension
[2019-04-22] MEDS ORDERED: POTASSIUM CHLORIDE 20 MEQ TABCR PO STA ×2 (00:09→08:04)
[2019-04-22] MEDS ORDERED: LACTATED RINGER'S 1,000 ML IV SCH (00:09)
[2019-04-22] MEDS ORDERED: ALBUMIN 25% 50 ML IV ONE ×2 (00:09→05:11)
[2019-04-22] MEDS: OXYCODONE HCL IR 5 MG TAB (IMMEDIATE RELEASE) PO PRN ×3 (00:35→14:15)
[2019-04-22] MEDS: LACTULOSE SYRUP 20 GM/30 ML UDC PO SCH ×3 (00:37→15:57)
[2019-04-22] MEDS: LIDOCAINE 5% 1 PATCH TD SCH ×2 (00:40→08:31)
[2019-04-22 01:04] LABS: Hematocrit (blood only) 26.1 % (42-52); Hemoglobin 9.2 g/dL (14.0-18.0)
[2019-04-22 06:22] LABS: Mean Corpuscular Hgb Conc 35.3 g/dL (32-36)
[2019-04-22 06:25] LABS: Hematocrit (blood only) 24.9 % (42-52); Hemoglobin 8.8 g/dL (14.0-18.0); Mean Corpuscular Hemoglobin 31.9 pg (25-34); Mean Corpuscular Volume 90.2 fL (80-100); RDW Coefficient of Variation 15.3 % (11.5-14.5); RDW Standard Deviation 50.2 fL (36.4-46.3); Red Blood Count 2.76 M/uL (4.7-6.1); White Blood Count 3.35 K/uL (4.8-10.8)
--- NOTE | 2019-04-22 06:29 | XRay Report ---
XR thoracic spine 2V HISTORY: 58 years-old Male midline thoracic pain, r/o fracture acute mid back pain without reported injury COMPARISON: CT abdomen and pelvis 04/21/2019, CTA chest 03/23/2016 TECHNIQUE: 2 views of the thoracic spine FINDINGS: 20% anterior endplate compression of the T6 vertebral body with additional subtle less than 20% super ior endplate compression of the T4 and T5 vertebral bodies is new from the 2016 exam. Probable Schmor l's node about the superior endplate of T7 is also new. Mostly mild multilevel intervertebral disc sp emi narrowing with mild facet arthrosis and spondylitic spurring. Lung dumont appear clear. IMPRESSION: 1. 20% anterior endplate compression of T6 with less than 20% superior endplate compression at T4 and T5 is technically age-indeterminate however is new from the 2016 comparison study. 2. Probable Schmorl's node of the superior endplate T7, also new from comparison. The above report was generated using voice recognition software. It may contain grammatical, syntax o r spelling errors. Electronically signed by: Meir Renteria M.D. 04/22/2019 6:28 AM
[2019-04-22 06:50] LABS: Basophils # (auto) 0.01 K/uL (0-0.2); Basophils % (auto) 0.3 %; Eosinophils # (auto) 0.21 K/uL (0-0.5); Eosinophils % (auto) 6.3 %; Immature Granulocytes # (auto) 0.01 K/uL (0.00-0.02); Immature Granulocytes % (auto) 0.3 %; Lymphocytes # (auto) 1.17 K/uL (1.2-3.4); Lymphocytes % (auto) 34.9 %; Monocytes # (auto) 0.26 K/uL (0.11-0.59); Monocytes % (auto) 7.8 %; Neutrophils # (auto) 1.69 K/uL (1.4-6.5); Neutrophils % (auto) 50.4 %; Platelet Count 31 K/uL (130-400); Platelet Estimate SIGNIFIC DECREASED (Normal)
[2019-04-22 06:55] LABS: Albumin Level 2.1 gm/dl (3.4-5.0); BUN Creatinine Ratio 9.6 (10-20); Calcium 7.9 mg/dl (8.5-10.1); Est GFR (African American) 23.3; Est GFR (Non-African American) 20.1; Magnesium 1.4 mg/dl (1.8-2.4); Potassium 3.1 mmol/L (3.5-5.1)
[2019-04-22 07:01] LABS: Albumin Globulin Ratio 0.4 (0.9-2); Bilirubin,Total 1.7 mg/dl (0.2-1); Globulin 4.9 gm/dl (2.5-4.0)
[2019-04-22] MEDS: AMLODIPINE BESYLATE 5 MG TAB PO SCH (08:31)
[2019-04-22] MEDS: PANTOprazole 40 MG TAB PO SCH (08:31)
[2019-04-22] MEDS: LORazepam 1 MG TAB PO PRN ×2 (08:38→21:18)
--- NOTE | 2019-04-22 09:33 | Nephrology Consultation ---
Date of Consultation April 22, 2019 Assessment & Plan (1) Acute renal failure: 58 y o male with acute kidney injury with history of chronic kidney disease, presented to the hospital with bilateral flank pain and dark urine. Has known history of cirrhosis, never required paracentesis. Admission imaging was concerning for hepatic mass suggestive of hemorrhage with underlying hepatocellular carcinoma. cr was 3.2 on admission at b/l cr 1.5-1.8, no postrenal obstruction on imaging. Urinalysis positive for hematuria and proteinuria. Unclear etiology for acute kidney injury however cannot exclude possibility for acute/subacute GN with history of underlying hep C. patient denies any symptom suggestive of prerenal etiology. Blood pressure, volume status acceptable. Denies any uremic symptoms. --check serology including ANCA, anti-GBM, complements are ordered currently pending --continue to hold diuretics, recommend discontinuing IV fluid if p.o. intake remains adequate --check renal function electrolyte daily, correct electrolyte accordingly --avoid all nephrotoxic medications, dose medications for GFR less than 30 Will follow Thank you for allowing me to participate in your patient's care. It was a pleasure to see Shad (2) Anemia: (3) Hypokalemia: (4) Kidney stone: (5) Thrombocytopenia: (6) Hepatitis C: History of Present Illness Reason for Consultation: Acute kidney injury with history of chronic kidney disease. Attending Physician: Efe Greenwood MD History of Present Illness Aleksandr rodgers is a 58-year-old gentlemen with past medical history significant for stage 3 chronic kidney disease, hypertension, cirrhosis of liver with portal hypertension, hepatitis-C admitted to the hospital with acute kidney injury. Nephrology consult was requested to manage acute kidney injury. Electronic medical records including labs and imaging were reviewed in detail during patient's visit. Shad presented to the hospital with several days history of bilateral flank pain and hematuria. On admission CT scan of abdomen and pelvis without contrast showed bilateral nephrolithiasis but no postrenal obstruction. Was found to have liver mass suspicious for hemorrhage in hepatocellular carcinoma with known hepatics cirrhosis. Had small abdominal ascites. Has known history of cirrhosis, never required paracentesis. Flank pain currently improved. Denies abdominal pain shortness of breath or chest pain. He reports having normal p.o. intake prior to admission. Had been having decent urine output. Denies taking NSAIDs at home. No skin rash, arthralgia. No significant change in weight or appetite recently. Had 1 episode of vomiting 4-5 days prior to admission. Denied chronic diarrhea. Has been taking Lasix 40 mg daily at home. Was not on NATALYA-inhibitor or ARB. No family h/o CKD, ESRD. Current active smoker. Has stage 3 chronic kidney disease, baseline creatinine seems to be variable from 1.5-1.8. On admission creatinine was 3.2, stayed relatively stable. Electrolyte has been acceptable. Urinalysis showed 2+ proteinuria and 3+ hematuria. No postrenal obstruction on CT A/P. Blood pressure has been well controlled, no hypotensive episode. Allergies Allergy/AdvReac Type Severity Reaction Status Date / Time lisinopril Allergy Severe angioedema Verified 04/21/19 18:05 blue dye Allergy Intermediate VISION Verified 04/21/19 18:05 DISTURBANCES citalopram Allergy Intermediate VISION Verified 04/21/19 18:05 DISTURBANCES duloxetine Allergy Intermediate VISION Verified 04/21/19 18:05 DISTURBANCES Home Medications Home Medications Medication Instructions Recorded Confirmed Type lorazepam 1 mg PO BID 07/02/18 04/21/19 History oxycodone 5 mg PO TID PRN 07/02/18 04/21/19 History pantoprazole 40 mg PO QAM 07/02/18 04/21/19 History lactulose 30 ml PO Q8H #15 ml 07/04/18 04/21/19 Rx amlodipine 5 mg PO QAM 09/14/18 04/21/19 History promethazine 25 mg PO Q6H PRN #20 tab 09/15/18 04/21/19 Rx hydrochlorothiazide 25 mg PO QAM 09/20/18 04/21/19 History Patient History Medical History Depression Hepatitis C Avascular necrosis of bones of both hips Seizure grand mal, last begining of 2018 Dementia Cerebellar atrophy (Chronic) HTN (hypertension) (Chronic) Cirrhosis (Chronic) Anemia Ascites Chronic back pain End stage liver disease 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--can not walk/stand at all History of anesthesia reaction difficulty waking d/t dementia History of bleeding ulcers Kidney stones hx Neurologic gait dysfunction Surgical History H/O inguinal hernia repair History of colonoscopy History of esophagogastroduodenoscopy (EGD) Family History Other DM II (diabetes mellitus, type II), controlled Heart disease Hypertension Kidney disease No family history of adverse response to anesthesia Social History Preferred Language: Swedish Communication Ability: Effective Dip Lube Operator Required: No Beliefs That Will Affect Care: None Current Living Situation: Alone Current Living Situation Comment: Lives with son and terminally ill Feels Safe at Home: Yes Safety Concerns: Feels Safe At This Time Smoking Status: Current every day smoker Tobacco Type: cigarettes ; Cigarettes Per Day: 10 ; Second Hand Exposure: No ; Hx Alcohol Use: No Hx Substance Use: No Review of Systems Review of Systems: All systems reviewed & are unremarkable except as noted in HPI & below Physical Exam Constitutional: WD/WN, vitals as above + ill appearing; no acute distress Eyes: PERRL, conjunctivae normal, anicteric sclerae ENMT: external ear and nose normal, oropharynx normal Ears: no hearing imp airment Neck: trachea midline Respiratory: normal respiratory effort, lungs clear to auscultation no cough Auscultation: no crackles, no rales and no wheezes Cardiovascular: RRR, no murmur, no edema Gastrointestinal (Abdomen): normal bowel sounds, soft, nontender, no hepatosplenomegaly Percussion/Palpation: abdomen nontender, no guarding and abdomen not rigid Musculoskeletal: Extremities: extremities normal to inspection Gait: normal gait Skin: no rashes, warm and dry Neurologic: moves all extremities and awake Psychiatric: A+Ox3, euthymic affect Results & Data Vital Signs (Past 12 Hours) Vital Signs Temp Pulse Pulse Pulse Resp BP BP 04/22/19 07:23 36.7 C 80 18 122/74 04/22/19 07:07 79 04/22/19 05:32 85 16 131/82 04/22/19 03:58 36.7 C 83 18 118/75 04/22/19 00:50 36.6 C 86 16 127/76 04/21/19 23:47 81 16 125/88 04/21/19 23:00 87 13 142/90 H 04/21/19 22:30 83 17 163/97 H 04/21/19 22:00 83 13 140/93 Pulse Ox 04/22/19 07:23 99 04/22/19 07:07 04/22/19 05:32 98 04/22/19 03:58 97 04/22/19 00:50 98 04/21/19 23:47 99 04/21/19 23:00 97 04/21/19 22:30 99 04/21/19 22:00 100 PG Care Time/CCT Total # of Minutes Spent Total Time Spent with Patient: Total time spent is greater than 50% in coordination of care (as documented) at patient's floor/unit and/or counseling patient: (1) Acute renal failure Acute renal failure type: unspecified Qualified Code(s): N17.9 - Acute kidney failure, unspecified (2) Anemia Anemia type: unspecified type Qualified Code(s): D64.9 - Anemia, unspecified (3) Hepatitis C Hepatic coma status: without hepatic coma Viral hepatitis chronicity: unspecified Qualified Code(s): B19.20 - Unspecified viral hepatitis C without hepatic coma
[2019-04-22 11:25] LABS: Ferritin 257.6 ng/ml (8-388)
--- NOTE | 2019-04-22 16:56 | Consultation Report ---
DATE OF CONSULTATION: 04/22/2019 REASON FOR EVALUATION: Liver mass and cirrhosis. HISTORY OF PRESENT ILLNESS: The patient is a 58-year-old male with a history of hepatitis C of undetermined duration, which has not been treated. The patient presents to the hospital with bilateral flank pain and worsening renal insufficiency. CAT scan showed an enhancing 4.6 cm nodule in the right lobe of the liver highly suspicious for hepatocellular carcinoma. An alpha fetoprotein has been drawn and is pending at this time. He also has some renal insufficiency and there is a question if this is related. He does also have some anemia, history of seizure disorder and cerebellar atrophy with ataxia and seizures, hypertension, avascular necrosis of his hips. MEDICATIONS: Per list. ALLERGIES: LISINOPRIL, CITALOPRAM, DULOXETINE AND BLUE DYE. SOCIAL HISTORY: The patient is . His has a terminal kidney failure. He smokes daily. No alcohol. FAMILY HISTORY: Positive for diabetes, hypertension, heart disease, kidney disease. PHYSICAL EXAMINATION: GENERAL: The patient appears in no acute distress. VITAL SIGNS: Show blood pressure 142/88, pulse 90. He is afebrile. NEUROLOGIC: The speech is somewhat dysarthric from his cerebellar atrophy. He also has some ataxia of movement in his arms. ABDOMEN: Not tender and I cannot really palpate his liver. IMPRESSION AND PLAN: The patient has cirrhosis from hepatitis C, which remains untreated. Also has a new 4.6 cm mass in the right lobe of the liver, highly suspicious for hepatocellular carcinoma. It is possible that he may have membranoproliferative glomerulonephritis, which is associated with hepatitis C and may be contributing to his renal insufficiency. He could also have cryoglobulinemia, another extra hepatic manifestation of liver or hepatitis C. I discussed with him the fact that if it is hepatocellular carcinoma, it may need to be treated through advanced techniques at a medical center. He is agreeable to be transferred to [place] if his alpha-fetoprotein returns high. I will continue to follow the patient and further recommendations will be based on the results of his AFP. FRANCOISED
--- NOTE | 2019-04-22 16:58 | Hospitalist Progress Note ---
Date of Service April 22, 2019 Assessment & Plan (1) Acute renal failure: Mr. 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 Found to have hepatic hemorrhage in R lobe with underlying hepatocellular carcinoma. Acute Kidney Injury -Admit to med/surg with telemetry monitoring -creatinine acutely elevated to 3.24 - baseline appears to be approx 1.4 - 1.6 -several b/l renal calculi seen on CT abdomen and pelvis, however they are all non-obstructive -UA w/out evidence for infection -Differential diagnosis: Hepatorenal syndrome, secondary to dehydration in the setting of continued hydrochlorothiazide use, mixed cryoglobulinemia, membranoproliferative glomerulonephritis contributing to his renal insufficiency -Urine cytology ordered -Hydrochlorothiazide held, avoid other nephrotoxic agents -Elevated ESR, complement panel/ cryoglobulins , ANCA, anti-GBM pending -dc'd IVF, pt tolerating PO intake -measure I/Os -appreciate Nephrology consult Hepatic hemorrhage/liver cirrhosis/Hepatocellular carcinoma -CT scan of abdomen and pelvis shows a cirrhotic liver with a 4.6 cm complex hyperdense lesion in the right hepatic lobe consistent with hemorrhage, likely with underlying hepatocellular carcinoma --> this is new from his prior CT scan in 08/2018 -Appreciate GI consult: may need to be treated through advanced techniques [place] [facility]AFP pending, will dictate course moving forward -hemodynamically stable -Recheck H&H every 6 hours Bilateral flank pain -No evidence of obstructing kidney stones -History and physical examination suggestive of musculoskeletal cause of pain -Thoracic spine x-ray reviewed -Lidocaine patch ordered to back, home oxycodone regimen continued Anemia -Hemoglobin 8.8, a decrease from his last hemoglobin of 10.8 -Anemia is chronic, related to his liver cirrhosis, however he may have had an acute drop given his hepatic hemorrhage -Trend H&H every 6 hours Thrombocytopenia -likely related to liver cirrhosis and splenomegaly -Continue to monitor Hypokalemia -resolving, additional PO KCl today -recheck in the morning History of seizures -Per patient's son, related to elevated ammonia levels -Last seizure was several months ago -Continue lactulose Hypertension -Hold home hydrochlorothiazide in the setting of [place] -Continue home amlodipine Anxiety -continue prn ativan Hx of duodenal ulcer -continue home pantoprazole Avascular necrosis of both hips -pt takes oxycodone TID prn at home for this - will continue this -pt ambulates using a wheelchair FEN/GI: Advanced diet CODE STATUS: DNR, per discussion with patient DVT prophylaxis: SCDs, chemical prophylaxis contraindicated in the setting of hepatic hemorrhage, anemia and thrombocytopenia Disposition: Admit to med/surg with telemetry monitoring. Possible transfer [place] [facility] Supervising Physician Co-Signing Physician Notes I saw the patient concur with the resident physician and confirmed epstein portions of history and physical exam. Agree with the impression and plan as noted in the resident documentation. Upon examination this morning, the patient states that his pain is improved compared to his initial presentation. He has been seen in consultation by nephrology and gastroenterology is pending. Important to add to his past medical history is a diagnosis of antiphospholipid syndrome. This was diagnosed approximately 7 or 8 years ago when he presented with a DVT as well as we know now to be a false positive syphilis test, which is not uncommon in the setting of antiphospholipid syndrome. We made a conscious decision at that time not to continue anticoagulation due to his elevated fall risk; thankfully he has not had any recurrence of VTE since his anticoagulation was discontinued. He has a noted previous history of hepatitis C diagnosis but has not been treated due to a number of reasons both medical and logistical. Unfortunately upon admission a CAT scan showed an enhancing 4.6 cm nodule in the right lobe of the liver which is suspicious for hepatocellular carcinoma. Alpha-fetoprotein is pending. Acute kidney injury on chronic kidney disease Creatinine upon admission 3.24, unchanged this morning. Nephrology consult appreciated. BMP in a.m. Antiphospholipid syndrome Not on pharmacological anticoagulation due to his fall risk as well as anemia and thrombocytopenia, although his hepatic dysfunction is causing some degree of auto anticoagulation Liver cirrhosis/hepatitis C/hepatic hemorrhage/question underlying hepatocellular carcinoma/splenomegaly/stable ascites/portal hypertension- AFP pending Gastroenterology consult appreciated Follow serial H&H's. Check alpha-fetoprotein level. Chronic thrombocytopenia/Anemia Monitor CBC Subjective 58 yo M found in bed this AM in NAD. No reported overnight events. Reports feeling better since admission. Some ongoing pain, but this is chronic. Remains NPO, wants to eat. No other acute concerns or complaints. Review of Systems Review of Systems: All systems reviewed & are unremarkable except as noted in HPI & below Physical Exam Constitutional: WD/WN, vitals as above Eyes: PERRL, conjunctivae normal, anicteric sclerae ENMT: external ear and nose normal, oropharynx normal Respiratory: normal respiratory effort, lungs clear to auscultation Cardiovascular: RRR, no murmur, no edema Gastrointestinal (Abdomen): mild distention Musculoskeletal: TTP mid thoracic Skin: tatoos on arms Psychiatric: A+Ox3, euthymic affect Results & Data Vital Signs (Past 12 Hours) Vital Signs Temp Pulse Pulse Resp BP Pulse Ox 04/22/19 16:07 72 04/22/19 14:52 36.6 C 75 18 118/69 98 04/22/19 11:43 36.5 C 76 18 111/69 98 04/22/19 07:23 36.7 C 80 18 122/74 99 04/22/19 07:07 79 04/22/19 05:32 85 16 131/82 98 Laboratory Results Laboratory Results - last 24 hr 04/21/19 04/21/19 04/21/19 18:51 18:51 21:00 WBC 3.10 L RBC 2.81 L Hgb 8.7 L Hct 25.2 L MCV 89.7 MCH 31.0 MCHC 34.5 RDW Std Deviation 49.4 H RDW Coeff of Justino 15.0 H Plt Count 27 L* Immature Gran % (Auto) 0.3 Neut % (Auto) 54.8 Lymph % (Auto) 32.3 [place] % (Auto) 8.1 Eos % (Auto) 4.2 Baso % (Auto) 0.3 Immature Gran # (Auto) 0.01 Neut # (Auto) 1.70 Lymph # (Auto) 1.00 L [place] # (Auto) 0.25 Eos # (Auto) 0.13 Baso # (Auto) 0.01 Platelet Estimate SIGNIFIC DECREASED ESR Sodium 140 Potassium 2.9 L Chloride 108 H Carbon Dioxide 23 Anion Gap 9.0 BUN 29 H Creatinine 3.24 H Est Cr Clr Drug Dosing Not Reportable Est GFR ( Amer) 23.3 Est GFR (Non-Af Amer) 20.1 BUN/Creatinine Ratio 8.9 L Glucose 101 H Calcium 7.7 L Magnesium Iron Transferrin Transferrin % Sat Ferritin Total Bilirubin 1.0 AST 43 H ALT 24 Alkaline Phosphatase 174 H Total Protein 7.1 Albumin 2.1 L Globulin 5.0 H Albumin/Globulin Ratio 0.4 L Lipase 359 Tumor Marker AFP Vit D 1,25-Dihyd Total 1,25 Dihydroxy Vit D2 1,25 Dihydroxy Vit D3 Folate PTH Intact Urine Color [place] Urine Appearance Clear Urine pH 6.0 Ur Specific [place] 1.013 Urine Protein 2+ H Urine Glucose (UA) Negative Urine Ketones Negative Urine Blood 3+ H Urine Nitrite Negative Urine Bilirubin Negative Urine Urobilinogen Negative Ur Leukocyte Esterase Negative Urine WBC (Auto) 5-10 H Urine RBC (Auto) >30 H U Hyaline Cast (Auto) 0 U Epithel Cells (Auto) 0-5 Urine Bacteria (Auto) Negative Cryoglobulin Cryoglobulin Cryocrit JASMINA Screen Anti-Proteinase 3 Anti-Myeloperoxidase ANCA Glomerular Base Memb Ab Complement C3 Complement C4 Tot Complement (CH50) Blood Type Antibody Screen 04/22/19 04/22/19 04/22/19 00:49 00:49 05:52 WBC RBC Hgb 9.2 L Hct 26.1 L MCV MCH MCHC RDW Std Deviation RDW Coeff of Justino Plt Count Immature Gran % (Auto) Neut % (Auto) Lymph % (Auto) [place] % (Auto) Eos % (Auto) Baso % (Auto) Immature Gran # (Auto) Neut # (Auto) Lymph # (Auto) [place] # (Auto) Eos # (Auto) Baso # (Auto) Platelet Estimate ESR Sodium Potassium Chloride Carbon Dioxide Anion Gap BUN Creatinine Est Cr Clr Drug Dosing Est GFR ( Amer) Est GFR (Non-Af Amer) BUN/Creatinine Ratio Glucose Calcium Magnesium Iron Transferrin Transferrin % Sat Ferritin Total Bilirubin AST ALT Alkaline Phosphatase Total Protein Albumin Globulin Albumin/Globulin Ratio Lipase Tumor Marker AFP Pending Vit D 1,25-Dihyd Total 1,25 Dihydroxy Vit D2 1,25 Dihydroxy Vit D3 Folate PTH Intact Urine Color Urine Appearance Urine pH Ur Specific [place] Urine Protein Urine Glucose (UA) Urine Ketones Urine Blood Urine Nitrite Urine Bilirubin Urine Urobilinogen Ur Leukocyte Esterase Urine WBC (Auto) Urine RBC (Auto) U Hyaline Cast (Auto) U Epithel Cells (Auto) Urine Bacteria (Auto) Cryoglobulin Pending Cryoglobulin Cryocrit Pending JASMINA Screen Anti-Proteinase 3 Anti-Myeloperoxidase ANCA Glomerular Base Memb Ab Complement C3 Pending Complement C4 Pending Tot Complement (CH50) Pending Blood Type O Negative Antibody Screen NEGATIVE 04/22/19 04/22/19 04/22/19 05:52 05:52 05:52 WBC 3.35 L RBC 2.76 L Hgb 8.8 L Hct 24.9 L MCV 90.2 MCH 31.9 MCHC 35.3 RDW Std Deviation 50.2 H RDW Coeff of Justino 15.3 H Plt Count 31 L Immature Gran % (Auto) 0.3 Neut % (Auto) 50.4 Lymph % (Auto) 34.9 [place] % (Auto) 7.8 Eos % (Auto) 6.3 Baso % (Auto) 0.3 Immature Gran # (Auto) 0.01 Neut # (Auto) 1.69 Lymph # (Auto) 1.17 L [place] # (Auto) 0.26 Eos # (Auto) 0.21 Baso # (Auto) 0.01 Platelet Estimate SIGNIFIC DECREASED ESR 64 H Sodium 139 Potassium 3.1 L Chloride 108 H Carbon Dioxide 22 Anion Gap 9.0 BUN 31 H Creatinine 3.24 H Est Cr Clr Drug Dosing 26.0 Est GFR ( Amer) 23.3 Est GFR (Non-Af Amer) 20.1 BUN/Creatinine Ratio 9.6 L Glucose 87 Calcium 7.9 L Magnesium 1.4 L Iron Transferrin Transferrin % Sat Ferritin Total Bilirubin 1.7 H D AST 40 H ALT 23 Alkaline Phosphatase 147 H Total Protein 7.0 Albumin 2.1 L Globulin 4.9 H Albumin/Globulin Ratio 0.4 L Lipase Tumor Marker AFP Vit D 1,25-Dihyd Total 1,25 Dihydroxy Vit D2 1,25 Dihydroxy Vit D3 Folate PTH Intact Urine Color Urine Appearance Urine pH Ur Specific [place] Urine Protein Urine Glucose (UA) Urine Ketones Urine Blood Urine Nitrite Urine Bilirubin Urine Urobilinogen Ur Leukocyte Esterase Urine WBC (Auto) Urine RBC (Auto) U Hyaline Cast (Auto) U Epithel Cells (Auto) Urine Bacteria (Auto) Cryoglobulin Cryoglobulin Cryocrit JASMINA Screen Anti-Proteinase 3 Anti-Myeloperoxidase ANCA Glomerular Base Memb Ab Complement C3 Complement C4 Tot Complement (CH50) Blood Type Antibody Screen 04/22/19 04/22/19 04/22/19 10:43 10:43 10:43 WBC RBC Hgb Hct MCV MCH MCHC RDW Std Deviation RDW Coeff of Justino Plt Count Immature Gran % (Auto) Neut % (Auto) Lymph % (Auto) [place] % (Auto) Eos % (Auto) Baso % (Auto) Immature Gran # (Auto) Neut # (Auto) Lymph # (Auto) [place] # (Auto) Eos # (Auto) Baso # (Auto) Platelet Estimate ESR Sodium Potassium Chloride Carbon Dioxide Anion Gap BUN Creatinine Est Cr Clr Drug Dosing Est GFR ( Amer) Est GFR (Non-Af Amer) BUN/Creatinine Ratio Glucose Calcium Magnesium Iron 145 Transferrin 133 L Transferrin % Sat 77 H Ferritin 257.6 Total Bilirubin AST ALT Alkaline Phosphatase Total Protein Albumin Globulin Albumin/Globulin Ratio Lipase Tumor Marker AFP Vit D 1,25-Dihyd Total Pending 1,25 Dihydroxy Vit D2 Pending 1,25 Dihydroxy Vit D3 Pending Folate PTH Intact 187.2 H Urine Color Urine Appearance Urine pH Ur Specific [place] Urine Protein Urine Glucose (UA) Urine Ketones Urine Blood Urine Nitrite Urine Bilirubin Urine Urobilinogen Ur Leukocyte Esterase Urine WBC (Auto) Urine RBC (Auto) U Hyaline Cast (Auto) U Epithel Cells (Auto) Urine Bacteria (Auto) Cryoglobulin Cryoglobulin Cryocrit JASMINA Screen Pending Anti-Proteinase 3 Pending Anti-Myeloperoxidase Pending ANCA Pending Glomerular Base Memb Ab Pending Complement C3 Complement C4 Tot Complement (CH50) Blood Type Antibody Screen 04/22/19 10:43 WBC RBC Hgb Hct MCV MCH MCHC RDW Std Deviation RDW Coeff of Justino Plt Count Immature Gran % (Auto) Neut % (Auto) Lymph % (Auto) [place] % (Auto) Eos % (Auto) Baso % (Auto) Immature Gran # (Auto) Neut # (Auto) Lymph # (Auto) [place] # (Auto) Eos # (Auto) Baso # (Auto) Platelet Estimate ESR Sodium Potassium Chloride Carbon Dioxide Anion Gap BUN Creatinine Est Cr Clr Drug Dosing Est GFR ( Amer) Est GFR (Non-Af Amer) BUN/Creatinine Ratio Glucose Calcium Magnesium Iron Transferrin Transferrin % Sat Ferritin Total Bilirubin AST ALT Alkaline Phosphatase Total Protein Albumin Globulin Albumin/Globulin Ratio Lipase Tumor Marker AFP Vit D 1,25-Dihyd Total 1,25 Dihydroxy Vit D2 1,25 Dihydroxy Vit D3 Folate 10.21 PTH Intact Urine Color Urine Appearance Urine pH Ur Specific [place] Urine Protein Urine Glucose (UA) Urine Ketones Urine Blood Urine Nitrite Urine Bilirubin Urine Urobilinogen Ur Leukocyte Esterase Urine WBC (Auto) Urine RBC (Auto) U Hyaline Cast (Auto) U Epithel Cells (Auto) Urine Bacteria (Auto) Cryoglobulin Cryoglobulin Cryocrit JASMINA Screen Anti-Proteinase 3 Anti-Myeloperoxidase ANCA Glomerular Base Memb Ab Complement C3 Complement C4 Tot Complement (CH50) Blood Type Antibody Screen Medications Administered Current Inpatient Medications Amlodipine Besylate (Norvasc) 5 mg PO QAM [facility] Stop: 05/22/19 08:59 Last Admin: 04/22/19 08:31 Dose: 5 mg Documented by: Lactulose (Chronulac) 20 gm PO Q8H [facility]YNETTE Stop: 05/22/19 00:00 Last Admin: 04/22/19 15:57 Dose: 20 gm Documented by: Lidocaine (Lidoderm 5%) 1 patch TD DAILY [facility]YNETTE Stop: 05/22/19 00:08 Last Admin: 04/22/19 08:31 Dose: Not Given Documented by: Lorazepam (Ativan) 1 mg PO BID PRN PRN Reason: Anxiety Stop: 05/22/19 00:08 Last Admin: 04/22/19 08:38 Dose: 1 mg Documented by: Miscellaneous (Remove Lidoderm Patch) 1 ea N/A DAILY@2100 [facility] Stop: 05/22/19 11:59 Last Admin: 04/22/19 12:25 Dose: 1 ea Documented by: Oxycodone HCl (Roxicodone Immediate Rel) 5 mg PO TID PRN PRN Reason: Pain Stop: 05/06/19 00:08 Last Admin: 04/22/19 14:15 Dose: 5 mg Documented by: Pantoprazole Sodium (Protonix) 40 mg PO QAM [facility] Stop: 05/22/19 08:59 Last Admin: 04/22/19 08:31 Dose: 40 mg Documented by: PG Care Time/CCT Total # of Minutes Spent Total Time Spent with Patient: Total time spent is greater than 50% in coordination of care (as documented) at patient's floor/unit and/or counseling patient: Resident Activity Tracking Resident Involvement: Resident Care Provided Care Provided: Adult Hospital Medicine (1) Acute renal failure Acute renal failure type: unspecified Qualified Code(s): N17.9 - Acute kidney failure, unspecified
[2019-04-22] MEDS ORDERED: MAGNESIUM SULFATE / D5W 1 GM/100 ML BAG IV ONE (20:30)
[2019-04-23] MEDS: OXYCODONE HCL IR 5 MG TAB (IMMEDIATE RELEASE) PO PRN ×4 (00:15→20:25)
[2019-04-23] MEDS: LACTULOSE SYRUP 20 GM/30 ML UDC PO SCH ×4 (00:15→23:34)
[2019-04-23 06:19] LABS: Basophils # (auto) 0.02 K/uL (0-0.2); Basophils % (auto) 0.7 %; Eosinophils # (auto) 0.14 K/uL (0-0.5); Eosinophils % (auto) 4.7 %; Hematocrit (blood only) 21.5 % (42-52); Hemoglobin 7.6 g/dL (14.0-18.0); Immature Granulocytes # (auto) 0.01 K/uL (0.00-0.02); Immature Granulocytes % (auto) 0.3 %; Lymphocytes # (auto) 1.09 K/uL (1.2-3.4); Lymphocytes % (auto) 36.9 %; Mean Corpuscular Hemoglobin 31.5 pg (25-34); Mean Corpuscular Hgb Conc 35.3 g/dL (32-36); Mean Corpuscular Volume 89.2 fL (80-100); Monocytes # (auto) 0.28 K/uL (0.11-0.59); Monocytes % (auto) 9.5 %; Neutrophils # (auto) 1.41 K/uL (1.4-6.5); Neutrophils % (auto) 47.9 %; RBC Morphology Unremarkable; RDW Coefficient of Variation 14.8 % (11.5-14.5); RDW Standard Deviation 48.5 fL (36.4-46.3); Red Blood Count 2.41 M/uL (4.7-6.1); White Blood Count 2.95 K/uL (4.8-10.8)
[2019-04-23 07:03] LABS: BUN Creatinine Ratio 10.1 (10-20); Calcium 7.6 mg/dl (8.5-10.1); Creatinine Clr Calc Pharmacy 25.2 ml/min; Est GFR (African American) 22.4; Est GFR (Non-African American) 19.4; Phosphorus 3.9 mg/dl (2.5-4.9); Potassium 3.6 mmol/L (3.5-5.1)
[2019-04-23] MEDS: AMLODIPINE BESYLATE 5 MG TAB PO SCH (07:46)
[2019-04-23] MEDS: PANTOprazole 40 MG TAB PO SCH (07:46)
[2019-04-23] MEDS: LIDOCAINE 5% 1 PATCH TD SCH (07:47)
[2019-04-23] MEDS: LORazepam 1 MG TAB PO PRN ×2 (07:56→22:42)
--- NOTE | 2019-04-23 11:13 | Nephrology Progress Note ---
Date of Service April 23, 2019 Assessment & Plan (1) Acute renal failure: 58 y o male with acute kidney injury with history of chronic kidney disease, presented to the hospital with bilateral flank pain and hematuria. Has known history of cirrhosis, never required paracentesis. Admission imaging was concerning for hepatic mass suggestive of hemorrhage with underlying hepatocellular carcinoma. cr was 3.2 on admission with b/l cr 1.5-1.8, no postrenal obstruction on imaging. Urinalysis positive for hematuria and proteinuria. Possibility for acute/subacute GN with history of underlying hep C remains. patient denies any symptom suggestive of prerenal etiology. Blood pressure, volume status acceptable. Denies any uremic symptoms. Renal function continues to worsen with cr 3.4 this morning, electrolyte remain acceptable. Blood pressure volume status has been acceptable. Has been having decent urine output. Serology still pending. --as renal function continues to worsen and there is definitely a concern for underlying acute GN, patient may need biopsy for further evaluation. If it is hep C related GN, pt may need immunosuppressive therapy prior to antiviral therapy for hep C. possibility for underlying hepatocellular carcinoma is definitely complicating the overall clinical scenario and best option would be to transfer patient to a facility where he can have the renal biopsy immediately and then decision regarding further treatment can be done accordingly. --check renal function electrolyte daily, correct electrolyte accordingly, --avoid all nephrotoxic medications, dose medications for GFR less than 30 Will follow while in patient (2) Anemia: (3) Hypokalemia: (4) Kidney stone: (5) Thrombocytopenia: (6) Hepatitis C: Subjective Shad was seen and examined in his room this morning. Having some nosebleed this morning but otherwise seems to be baseline. Has been having decent urine output although renal function worsened further to creatinine 3.4, electrolyte acceptable. Review of Systems Review of Systems: All systems reviewed & are unremarkable except as noted in HPI & below Physical Exam Constitutional: WD/WN, vitals as above no acute distress Eyes: PERRL, conjunctivae normal, anicteric sclerae Neck: trachea midline supple Respiratory: normal respiratory effort, lungs clear to auscultation no cough Auscultation: no crackles, no rales and no wheezes Cardiovascular: RRR, no murmur, no edema Gastrointestinal (Abdomen): normal bowel sounds, soft, nontender, no hepatosplenomegaly Percussion/Palpation: abdomen nontender, no guarding and abdomen not rigid Skin: no rashes, warm and dry Neurologic: moves all extremities and awake; not confused Psychiatric: A+Ox3, euthymic affect Results & Data Vital Signs (Past 12 Hours) Vital Signs Temp Pulse Pulse Resp BP Pulse Ox 04/23/19 07:50 36.6 C 92 H 18 145/79 H 97 04/23/19 07:24 86 04/23/19 03:10 36.4 C L 89 20 135/76 97 04/22/19 23:50 37 C 83 18 127/71 98 PG Care Time/CCT Total # of Minutes Spent Total Time Spent with Patient: Total time spent is greater than 50% in coordination of care (as documented) at patient's floor/unit and/or counseling patient: (1) Acute renal failure Acute renal failure type: unspecified Qualified Code(s): N17.9 - Acute kidney failure, unspecified (2) Anemia Anemia type: unspecified type Qualified Code(s): D64.9 - Anemia, unspecified (3) Hepatitis C Hepatic coma status: without hepatic coma Viral hepatitis chronicity: unspecified Qualified Code(s): B19.20 - Unspecified viral hepatitis C without hepatic coma
[2019-04-23 14:46] LABS: Platelet Count 30 K/uL (130-400)
--- NOTE | 2019-04-23 16:54 | Hospitalist Progress Note ---
Date of Service April 23, 2019 Assessment & Plan (1) Acute renal failure: Mr. 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 Found to have hepatic hemorrhage in R lobe with underlying hepatocellular carcinoma. Acute Kidney Injury -Admit to med/surg with telemetry monitoring -creatinine acutely elevated to 3.24 - baseline appears to be approx 1.4 - 1.6 -several b/l renal calculi seen on CT abdomen and pelvis, however they are all non-obstructive -UA w/out evidence for infection -Differential diagnosis: Hepatorenal syndrome, secondary to dehydration in the setting of continued hydrochlorothiazide use, mixed cryoglobulinemia, membranoproliferative glomerulonephritis contributing to his renal insufficiency. Possibility for acute/subacute GN with history of underlying hep C -Urine cytology ordered -Hydrochlorothiazide held, avoid other nephrotoxic agents -Elevated ESR, complement panel/ cryoglobulins , ANCA, anti-GBM pending -concern for underlying acute GN, patient may need biopsy for further evaluation. If it is hep C related GN, pt may need immunosuppressive therapy prior to antiviral therapy for hep C. May need to consider transfer to tertiary center for this to be done in background of underlying carcinoma -measure I/Os -appreciate Nephrology consult Hepatic hemorrhage/liver cirrhosis/Hepatocellular carcinoma -CT scan of abdomen and pelvis shows a cirrhotic liver with a 4.6 cm complex hyperdense lesion in the right hepatic lobe consistent with hemorrhage, likely with underlying hepatocellular carcinoma --> this is new from his prior CT scan in 08/2018 -Appreciate GI consult: may need to be treated through advanced techniques at [facility] -AFP pending, will dictate course moving forward -hemodynamically stable -Recheck H&H every 6 hours Antiphospholipid syndrome -Not on pharmacological anticoagulation due to his fall risk as well as anemia and thrombocytopenia, although his hepatic dysfunction is causing some degree of auto anticoagulation Bilateral flank pain -No evidence of obstructing kidney stones -History and physical examination suggestive of musculoskeletal cause of pain -Thoracic spine x-ray reviewed -Lidocaine patch ordered to back, home oxycodone regimen continued Pancytopenia -Hemoglobin 7.6, a decrease from his last hemoglobin of 10.8 -Anemia is chronic, related to his liver cirrhosis, however he may have had an acute drop given his hepatic hemorrhage -Trend H&H every 6 hours -transfuse as needed -likely related to liver cirrhosis and splenomegaly -Continue to monitor History of seizures -Per patient's son, related to elevated ammonia levels -Last seizure was several months ago -Continue lactulose Hypertension -Hold home hydrochlorothiazide in the setting of LOUISE -Continue home amlodipine Anxiety -continue prn ativan Hx of duodenal ulcer -continue home pantoprazole Avascular necrosis of both hips -pt takes oxycodone TID prn at home for this - will continue this -pt ambulates using a wheelchair FEN/GI: Regular diet CODE STATUS: DNR, per discussion with patient DVT prophylaxis: SCDs, chemical prophylaxis contraindicated in the setting of hepatic hemorrhage, anemia and thrombocytopenia Disposition: Admit to med/surg with telemetry monitoring. Possible transfer to [facility] Supervising Physician Co-Signing Physician Notes I saw the patient concurrent with the resident physician and confirmed epstein portions of history and physical exam. Agree with the impression and plan as noted in the resident documentation. Also discussed the case with gastroenterology transformation consultant. Upon examination this morning, the patient states the patient denies pain. He is hemodynamic is stable. He has been afebrile. Hemoglobin 7.6, platelet count 30,, white blood count 2.95. PT 13.8, INR 1.4. Creatinine slightly increased to 3.34 compared to yesterday at 3.24. Alpha-fetoprotein is pending. Acute kidney injury on chronic kidney disease Creatinine upon admission 3.24, 3.34 today. Nephrology consult appreciated. Daily BMP. Antiphospholipid syndrome Not on pharmacological anticoagulation due to his fall risk as well as anemia and thrombocytopenia, although his hepatic dysfunction is causing some degree of auto anticoagulation Liver cirrhosis/hepatitis C/hepatic hemorrhage/question underlying hepatocellular carcinoma/splenomegaly/stable ascites/portal hypertension- AFP pending; Gastroenterology consult appreciated Check alpha-fetoprotein level. Depending on results of AFP, may need referral to tertiary care center. Pancytopenia Monitor CBC Subjective 58 yo M found in bed this AM in NAD. No reported overnight events. Awaiting AFP. Pt tolerating pain. Tolerating PO intake. No other acute concerns or complaints. Review of Systems Review of Systems: All systems reviewed & are unremarkable except as noted in HPI & below Physical Exam Constitutional: WD/WN, vitals as above Eyes: PERRL, conjunctivae normal, anicteric sclerae ENMT: external ear and nose normal, oropharynx normal Respiratory: normal respiratory effort, lungs clear to auscultation Cardiovascular: RRR, no murmur, no edema Gastrointestinal (Abdomen): mild distention abd Musculoskeletal: mid thoracic TTP Skin: tatoos Psychiatric: A+Ox3, euthymic affect Results & Data Vital Signs (Past 12 Hours) Vital Signs Temp Pulse Pulse Resp BP Pulse Ox 04/23/19 14:58 36.6 C 77 18 122/69 97 04/23/19 11:34 36.7 C 75 18 111/65 97 04/23/19 07:50 36.6 C 92 H 18 145/79 H 97 04/23/19 07:24 86 Laboratory Results Laboratory Results - last 24 hr 04/23/19 04/23/19 04/23/19 05:47 05:47 05:47 WBC 2.95 L RBC 2.41 L Hgb 7.6 L Hct 21.5 L MCV 89.2 MCH 31.5 MCHC 35.3 RDW Std Deviation 48.5 H RDW Coeff of Justino 14.8 H Plt Count 30 L Immature Gran % (Auto) 0.3 Neut % (Auto) 47.9 Lymph % (Auto) 36.9 Hamilton % (Auto) 9.5 Eos % (Auto) 4.7 Baso % (Auto) 0.7 Immature Gran # (Auto) 0.01 Neut # (Auto) 1.41 Lymph # (Auto) 1.09 L Hamilton # (Auto) 0.28 Eos # (Auto) 0.14 Baso # (Auto) 0.02 RBC Morphology Unremarkable Sodium 134 L Potassium 3.6 D Chloride 105 Carbon Dioxide 21 Anion Gap 8.0 BUN 34 H Creatinine 3.34 H Est Cr Clr Drug Dosing 25.2 Est GFR ( Amer) 22.4 Est GFR (Non-Af Amer) 19.4 BUN/Creatinine Ratio 10.1 Glucose 87 Calcium 7.6 L Phosphorus 3.9 Magnesium 1.6 L Albumin 2.0 L Medications Administered Current Inpatient Medications Amlodipine Besylate (Norvasc) 5 mg PO QAM [facility] Stop: 05/22/19 08:59 Last Admin: 04/23/19 07:46 Dose: 5 mg Documented by: Magnesium Sulfate/Dextrose (Magnesium Sulfate / D5w) 1 gm in 100 mls @ 100 mls/hr IV ONE ONE Stop: 04/23/19 17:55 Lactulose (Chronulac) 20 gm PO Q8H [facility] Stop: 05/22/19 00:00 Last Admin: 04/23/19 15:28 Dose: 20 gm Documented by: Lidocaine (Lidoderm 5%) 1 patch TD DAILY [facility] Stop: 05/22/19 00:08 Last Admin: 04/23/19 07:47 Dose: 1 patch Documented by: Lorazepam (Ativan) 1 mg PO BID PRN PRN Reason: Anxiety Stop: 05/22/19 00:08 Last Admin: 04/23/19 07:56 Dose: 1 mg Documented by: Miscellaneous (Remove Lidoderm Patch) 1 ea N/A DAILY@2100 [facility] Stop: 05/22/19 11:59 Last Admin: 04/22/19 12:25 Dose: 1 ea Documented by: Oxycodone HCl (Roxicodone Immediate Rel) 5 mg PO TID PRN PRN Reason: Pain Stop: 05/06/19 00:08 Last Admin: 04/23/19 12:24 Dose: 5 mg Documented by: Pantoprazole Sodium (Protonix) 40 mg PO QAM [facility] Stop: 05/22/19 08:59 Last Admin: 04/23/19 07:46 Dose: 40 mg Documented by: PG Care Time/CCT Total # of Minutes Spent Total Time Spent with Patient: Total time spent is greater than 50% in coordination of care (as documented) at patient's floor/unit and/or counseling patient: Resident Activity Tracking Resident Involvement: Resident Care Provided Care Provided: Adult Hospital Medicine (1) Acute renal failure Acute renal failure type: unspecified Qualified Code(s): N17.9 - Acute kidney failure, unspecified
[2019-04-23] MEDS ORDERED: MAGNESIUM SULFATE / D5W 1 GM/100 ML BAG IV ONE (17:00)
[2019-04-24] MEDS: OXYCODONE HCL IR 5 MG TAB (IMMEDIATE RELEASE) PO PRN (05:48)
[2019-04-24 06:21] LABS: Mean Corpuscular Hgb Conc 35.5 g/dL (32-36)
[2019-04-24 06:29] LABS: Hematocrit (blood only) 21.4 % (42-52); Hemoglobin 7.6 g/dL (14.0-18.0); Mean Corpuscular Hemoglobin 31.4 pg (25-34); Mean Corpuscular Volume 88.4 fL (80-100); RDW Coefficient of Variation 14.4 % (11.5-14.5); RDW Standard Deviation 46.8 fL (36.4-46.3); Red Blood Count 2.42 M/uL (4.7-6.1)
[2019-04-24 06:45] LABS: Basophils # (auto) 0.01 K/uL (0-0.2); Basophils % (auto) 0.4 %; Eosinophils # (auto) 0.13 K/uL (0-0.5); Eosinophils % (auto) 4.6 %; Lymphocytes # (auto) 0.95 K/uL (1.2-3.4); Lymphocytes % (auto) 33.9 %; Monocytes # (auto) 0.24 K/uL (0.11-0.59); Monocytes % (auto) 8.6 %; Neutrophils # (auto) 1.47 K/uL (1.4-6.5); Neutrophils % (auto) 52.5 %; Platelet Count 30 K/uL (130-400); Platelet Estimate SIGNIFIC DECREASED (Normal); RBC Morphology Unremarkable
[2019-04-24 07:18] LABS: Albumin Globulin Ratio 0.4 (0.9-2); BUN Creatinine Ratio 11.5 (10-20); Bilirubin,Total 1.1 mg/dl (0.2-1); Creatinine Clr Calc Pharmacy 23.3 ml/min; Est GFR (African American) 20.4; Est GFR (Non-African American) 17.6; Globulin 4.5 gm/dl (2.5-4.0); Phosphorus 4.1 mg/dl (2.5-4.9); Potassium 3.6 mmol/L (3.5-5.1); Total Protein 6.5 gm/dl (6.4-8.2)
[2019-04-24 08:02] LABS: Magnesium 1.9 mg/dl (1.8-2.4)
[2019-04-24] MEDS: LORazepam 1 MG TAB PO PRN ×2 (08:09→20:17)
[2019-04-24] MEDS: LACTULOSE SYRUP 20 GM/30 ML UDC PO SCH ×3 (08:09→23:52)
[2019-04-24] MEDS: LIDOCAINE 5% 1 PATCH TD SCH (08:09)
[2019-04-24] MEDS: AMLODIPINE BESYLATE 5 MG TAB PO SCH (08:09)
[2019-04-24] MEDS: PANTOprazole 40 MG TAB PO SCH (08:09)
[2019-04-24] MEDS ORDERED: EPOETIN ALFA 20,000 UNITS/ML VIAL SQ ONE (08:28)
--- NOTE | 2019-04-24 10:26 | Nephrology Progress Note ---
Date of Service April 24, 2019 Assessment & Plan (1) Acute renal failure: 58 y o male with acute kidney injury with history of chronic kidney disease, presented to the hospital with bilateral flank pain and hematuria. Has known history of cirrhosis, never required paracentesis. Admission imaging was concerning for hepatic mass suggestive of hemorrhage with underlying hepatocellular carcinoma. cr was 3.2 on admission with b/l cr 1.5-1.8, no postrenal obstruction on imaging. Urinalysis positive for hematuria and proteinuria. Possibility for acute/subacute GN with history of underlying hep C remains. patient denies any symptom suggestive of prerenal etiology. Blood pressure, volume status acceptable. Denies any uremic symptoms. Renal function continues to worsen with cr 3.6 this morning, electrolyte remain acceptable. Blood pressure volume status has been acceptable. Has been having decent urine output. Serology still pending. --continue to monitor renal function, electrolyte and volume status while we are waiting for the serology and AFP. No indication for renal replacement therapy however patient is at risk for progressive worsening of renal function, volume overload and electrolyte abnormality. --avoid all nephrotoxic medications, dose medications for GFR less than 30 Will follow while in patient (2) Anemia: (3) Hypokalemia: (4) Kidney stone: (5) Thrombocytopenia: (6) Hepatitis C: Biju Kulkarni was seen and examined in his room this morning. Has been having decent urine output although renal function worsened further to creatinine 3.6 electrolyte acceptable. Seems more lethargy today and falling asleep easily. Blood pressure stable. Volume status acceptable. Review of Systems Review of Systems: All systems reviewed & are unremarkable except as noted in HPI & below Physical Exam Constitutional: WD/WN, vitals as above + ill appearing; no acute distress Respiratory: normal respiratory effort, lungs clear to auscultation Cardiovascular: RRR, no murmur, no edema Skin: no rashes, warm and dry Neurologic: awake; not confused Psychiatric: A+Ox3, euthymic affect Results & Data Vital Signs (Past 12 Hours) Vital Signs Temp Pulse Pulse Pulse Resp BP Pulse Ox 04/24/19 07:50 36.8 C 78 18 125/68 97 04/24/19 07:09 74 04/24/19 03:40 36.5 C 70 16 129/70 94 04/24/19 01:11 75 04/23/19 23:22 36.6 C 72 16 133/72 94 PG Care Time/CCT Total # of Minutes Spent Total Time Spent with Patient: Total time spent is greater than 50% in coordination of care (as documented) at patient's floor/unit and/or counseling patient: (1) Acute renal failure Acute renal failure type: unspecified Qualified Code(s): N17.9 - Acute kidney failure, unspecified (2) Anemia Anemia type: unspecified type Qualified Code(s): D64.9 - Anemia, unspecified (3) Hepatitis C Hepatic coma status: without hepatic coma Viral hepatitis chronicity: unspecified Qualified Code(s): B19.20 - Unspecified viral hepatitis C without hepatic coma
[2019-04-24] MEDS: CALCITRIOL 0.25 MCG CAPSULE PO SCH (10:49)
--- NOTE | 2019-04-24 16:09 | Hospitalist Progress Note ---
Date of Service April 24, 2019 Assessment & Plan (1) Acute renal failure: Mr. 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 Found to have hepatic hemorrhage in R lobe with underlying hepatocellular carcinoma. Acute Kidney Injury -Admit to med/surg with telemetry monitoring -creatinine acutely elevated to 3.61 - baseline appears to be approx 1.4 - 1.6 -several b/l renal calculi seen on CT abdomen and pelvis, however they are all non-obstructive -UA w/out evidence for infection -Differential diagnosis: Hepatorenal syndrome, secondary to dehydration in the setting of continued hydrochlorothiazide use, mixed cryoglobulinemia, membranoproliferative glomerulonephritis contributing to his renal insufficiency. Possibility for acute/subacute GN with history of underlying hep C -Urine cytology ordered -Hydrochlorothiazide held, avoid other nephrotoxic agents -Elevated ESR, complement panel/ cryoglobulins , ANCA, anti-GBM pending -concern for underlying acute GN, patient may need biopsy for further evaluation. If it is hep C related GN, pt may need immunosuppressive therapy prior to antiviral therapy for hep C. May need to consider transfer to tertiary center for this to be done in background of underlying carcinoma -likely not prerenal etiology -measure I/Os -appreciate Nephrology consult Hepatic hemorrhage/liver cirrhosis/Hepatocellular carcinoma -CT scan of abdomen and pelvis shows a cirrhotic liver with a 4.6 cm complex hyperdense lesion in the right hepatic lobe consistent with hemorrhage, likely with underlying hepatocellular carcinoma --> this is new from his prior CT scan in 08/2018 -Appreciate GI consult: may need to be treated through advanced techniques at [facility] -AFP pending, will dictate course moving forward -hemodynamically stable -Recheck H&H every 6 hours Antiphospholipid syndrome -Not on pharmacological anticoagulation due to his fall risk as well as anemia and thrombocytopenia, although his hepatic dysfunction is causing some degree of auto anticoagulation Bilateral flank pain -No evidence of obstructing kidney stones -History and physical examination suggestive of musculoskeletal cause of pain -Thoracic spine x-ray reviewed -Lidocaine patch ordered to back, home oxycodone regimen continued Pancytopenia -Hemoglobin 7.6, a decrease from his last hemoglobin of 10.8 -Anemia is chronic, related to his liver cirrhosis, however he may have had an acute drop given his hepatic hemorrhage -Thrombocytopenia-likely related to liver cirrhosis and splenomegaly -Trend H&H daily -transfuse as needed History of seizures -Per patient's son, related to elevated ammonia levels -Last seizure was several months ago -Continue lactulose Hypertension -Hold home hydrochlorothiazide in the setting of LOUISE -Continue home amlodipine Anxiety -continue prn ativan Hx of duodenal ulcer -continue home pantoprazole Avascular necrosis of both hips -pt takes oxycodone TID prn at home for this - will continue this -pt ambulates using a wheelchair FEN/GI: Regular diet CODE STATUS: DNR, per discussion with patient DVT prophylaxis: SCDs, chemical prophylaxis contraindicated in the setting of hepatic hemorrhage, anemia and thrombocytopenia Disposition: Admit to med/surg with telemetry monitoring. Possible transfer to [facility] Supervising Physician Co-Signing Physician Notes I saw the patient concurrent with the resident physician and confirmed epstein portions of history and physical exam. Agree with the impression and plan as noted in the resident documentation. Also discussed the case with gastroenterology solutions delivery consultant. Upon examination this morning, the patient states the patient denies pain. Reviewing his labs, his white blood cell count and hemoglobin are trending down; his platelet count is stable at 30,000. His creatinine has gone from 3.34-3.61. After discussion with consultants, consistent agreement is that the patient needs referral to a tertiary care center for both diagnosis and management of his renal disease (consider renal biopsy which is not available at this facility) as well as treatment of his liver mass via interventional radiology (which is not available at this facility either). I discussed this with the patient who is accepting of a transfer. We discussed options of [facility] in [place] or [facility] in [place]; [place] would be closer to his home and this may be better logistically for his family to visit. Can ask if he could discuss with his family; he will discuss with his family and we will begin arrangements for transfer in the morning. Acute kidney injury on chronic kidney disease Question if this membranoproliferative glomerulonephritis Creatinine continues to slowly rise Nephrology consult appreciated. He may need a renal biopsy Daily BMP. Antiphospholipid syndrome Not on pharmacological anticoagulation due to his fall risk as well as anemia and thrombocytopenia, although his hepatic dysfunction is causing some degree of auto anticoagulation Liver cirrhosis/hepatitis C/hepatic hemorrhage/question underlying hepatocellular carcinoma/splenomegaly/stable ascites/portal hypertension- AFP pending; Gastroenterology consult appreciated Check alpha-fetoprotein level. Depending on results of AFP, may need referral to tertiary care center. Pancytopenia Slight worsening of hemoglobin and white blood cell count; platelet count rem ains stable. Subjective 58 yo M found in bed this AM in NAD. No reported overnight events. Tolerating PO intake. Awaiting AFP. No other acute concerns or complaints. Case discussed with daughter today. Review of Systems Review of Systems: All systems reviewed & are unremarkable except as noted in HPI & below Physical Exam Constitutional: WD/WN, vitals as above Eyes: PERRL, conjunctivae normal, anicteric sclerae ENMT: external ear and nose normal, oropharynx normal Respiratory: normal respiratory effort, lungs clear to auscultation Cardiovascular: RRR, no murmur, no edema Gastrointestinal (Abdomen): mildly distended abd Musculoskeletal: mid thoracic ttp Skin: tatoos Psychiatric: A+Ox3, euthymic affect Results & Data Vital Signs (Past 12 Hours) Vital Signs Temp Pulse Pulse Resp BP Pulse Ox 04/24/19 15:13 36.3 C L 76 16 118/69 97 04/24/19 12:00 36.4 C L 67 16 116/73 98 04/24/19 07:50 36.8 C 78 18 125/68 97 04/24/19 07:09 74 Laboratory Results Laboratory Results - last 24 hr 04/24/19 04/24/19 04/24/19 05:37 05:37 05:37 WBC 2.80 L RBC 2.42 L Hgb 7.6 L Hct 21.4 L MCV 88.4 MCH 31.4 MCHC 35.5 RDW Std Deviation 46.8 H RDW Coeff of Justino 14.4 Plt Count 30 L Immature Gran % (Auto) 0.0 Neut % (Auto) 52.5 Lymph % (Auto) 33.9 [place]y % (Auto) 8.6 Eos % (Auto) 4.6 Baso % (Auto) 0.4 Immature Gran # (Auto) 0.00 Neut # (Auto) 1.47 Lymph # (Auto) 0.95 L [place]ancey # (Auto) 0.24 Eos # (Auto) 0.13 Baso # (Auto) 0.01 Platelet Estimate SIGNIFIC DECREASED RBC Morphology Unremarkable Sodium 131 L Potassium 3.6 Chloride 102 Carbon Dioxide 21 Anion Gap 8.0 BUN 41 H Creatinine 3.61 H Est Cr Clr Drug Dosing 23.3 Est GFR ( Amer) 20.4 Est GFR (Non-Af Amer) 17.6 BUN/Creatinine Ratio 11.5 Glucose 89 Calcium 8.0 L Phosphorus 4.1 Magnesium 1.9 Total Bilirubin 1.1 H AST 50 H ALT 25 Alkaline Phosphatase 144 H Total Protein 6.5 Albumin 2.0 L Globulin 4.5 H Albumin/Globulin Ratio 0.4 L Specimen Hemolysis Medications Administered Current Inpatient Medications Amlodipine Besylate (Norvasc) 5 mg PO QAM [facility] Stop: 05/22/19 08:59 Last Admin: 04/24/19 08:09 Dose: 5 mg Documented by: Calcitriol (Rocaltrol) 0.25 mcg PO QAM [facility] Stop: 05/24/19 08:59 Last Admin: 04/24/19 10:49 Dose: 0.25 mcg Documented by: Lactulose (Chronulac) 20 gm PO Q8H [facility] Stop: 05/22/19 00:00 Last Admin: 04/24/19 15:59 Dose: 20 gm Documented by: Lidocaine (Lidoderm 5%) 1 patch TD DAILY [facility] Stop: 05/22/19 00:08 Last Admin: 04/24/19 08:09 Dose: 1 patch Documented by: Lorazepam (Ativan) 1 mg PO BID PRN PRN Reason: Anxiety Stop: 05/22/19 00:08 Last Admin: 04/24/19 08:09 Dose: 1 mg Documented by: Miscellaneous (Remove Lidoderm Patch) 1 ea N/A DAILY@2100 [facility] Stop: 05/22/19 11:59 Last Admin: 04/23/19 20:28 Dose: Not Given Documented by: Oxycodone HCl (Roxicodone Immediate Rel) 5 mg PO TID PRN PRN Reason: Pain Stop: 05/06/19 00:08 Last Admin: 04/24/19 05:48 Dose: 5 mg Documented by: Pantoprazole Sodium (Protonix) 40 mg PO QAM [facility] Stop: 05/22/19 08:59 Last Admin: 04/24/19 08:09 Dose: 40 mg Documented by: Resident Activity Tracking Resident Involvement: Resident Care Provided Care Provided: Adult Hospital Medicine (1) Acute renal failure Acute renal failure type: unspecified Qualified Code(s): N17.9 - Acute kidney failure, unspecified
--- NOTE | 2019-04-24 16:43 | Progress Note ---
DATE: 04/24/2019 REASON FOR EVALUATION: Liver mass and renal insufficiency and chronic hepatitis C with cirrhosis. The patient has a mass on the right lobe of the liver, which is vascular and very highly suggestive of hepatoma. His alpha fetoprotein has returned today slightly high at 7 with the upper limit of normal being 6.1. His renal function unfortunately has not improved and may be associated with membranoproliferative glomerulonephritis, which is an extrahepatic manifestation of hepatitis C. PHYSICAL EXAMINATION: GENERAL: The patient appears awake. His speech is somewhat slurred from cerebellar ataxia. VITAL SIGNS: Blood pressure is 118/69, pulse 76, respirations 16, temperature is 36.3, O2 saturation on room air is 97%. His BUN is 41, creatinine is 3.61 with an estimated creatinine clearance of 17.6. IMPRESSION: The patient's clinical condition is not improving, I suspect that he has ongoing renal insufficiency and probably a hepatoma. I discussed this case with Dr. Fung, his primary care provider and it is likely he is going to need a kidney biopsy and treatment of this liver mass possibly through interventional radiology, and the patient is agreeable to be transferred to [place], Dr. Fung will be working on those arrangements.
[2019-04-25] MEDS: OXYCODONE HCL IR 5 MG TAB (IMMEDIATE RELEASE) PO PRN (04:59)
[2019-04-25 07:46] LABS: Mean Corpuscular Hgb Conc 36.2 g/dL (32-36)
[2019-04-25 07:57] LABS: Hemoglobin 7.6 g/dL (14.0-18.0); Mean Corpuscular Hemoglobin 31.7 pg (25-34); Mean Corpuscular Volume 87.5 fL (80-100); RDW Coefficient of Variation 14.4 % (11.5-14.5); RDW Standard Deviation 46.4 fL (36.4-46.3); White Blood Count 2.97 K/uL (4.8-10.8)
[2019-04-25] MEDS: AMLODIPINE BESYLATE 5 MG TAB PO SCH (07:58)
[2019-04-25] MEDS: LORazepam 1 MG TAB PO PRN (07:58)
[2019-04-25] MEDS: LIDOCAINE 5% 1 PATCH TD SCH (07:58)
[2019-04-25] MEDS: PANTOprazole 40 MG TAB PO SCH (07:58)
[2019-04-25] MEDS: LACTULOSE SYRUP 20 GM/30 ML UDC PO SCH (07:58)
[2019-04-25] MEDS: CALCITRIOL 0.25 MCG CAPSULE PO SCH (07:59)
[2019-04-25 08:20] LABS: BUN Creatinine Ratio 11.8 (10-20); Creatinine Clr Calc Pharmacy 20.9 ml/min; Est GFR (African American) 17.9; Est GFR (Non-African American) 15.4; Platelet Count 30 K/uL (130-400); Potassium 3.3 mmol/L (3.5-5.1)
[2019-04-25 08:23] LABS: Albumin Globulin Ratio 0.4 (0.9-2); Globulin 4.5 gm/dl (2.5-4.0); Total Protein 6.5 gm/dl (6.4-8.2)
[2019-04-25 08:28] LABS: Basophils # (auto) 0.01 K/uL (0-0.2); Basophils % (auto) 0.3 %; Echinocytes 1+; Eosinophils # (auto) 0.12 K/uL (0-0.5); Giant Platelets 1+; Immature Granulocytes # (auto) 0.02 K/uL (0.00-0.02); Immature Granulocytes % (auto) 0.7 %; Lymphocytes # (auto) 1.04 K/uL (1.2-3.4); Monocytes # (auto) 0.27 K/uL (0.11-0.59); Monocytes % (auto) 9.1 %; Neutrophils # (auto) 1.51 K/uL (1.4-6.5); Neutrophils % (auto) 50.9 %
--- NOTE | 2019-04-25 10:02 | Nephrology Progress Note ---
Date of Service April 25, 2019 Assessment & Plan (1) Acute renal failure: 58 y o male with acute kidney injury with history of chronic kidney disease, presented to the hospital with bilateral flank pain and hematuria. Has known history of cirrhosis, never required paracentesis. Admission imaging was concerning for hepatic mass suggestive of hemorrhage with underlying hepatocellular carcinoma. cr was 3.2 on admission with b/l cr 1.5-1.8, no postrenal obstruction on imaging. Urinalysis positive for hematuria and proteinuria. Possibility for acute/subacute GN with history of underlying hep C remains. patient denies any symptom suggestive of prerenal etiology. Blood pressure, volume status acceptable. Denies any uremic symptoms. Renal function continues to worsen, electrolyte remain acceptable. Blood pressure volume status has been acceptable. Has been having decent urine o utput. --No indication for renal replacement therapy however patient is at risk for progressive worsening of renal function, volume overload and electrolyte abnormality. Would not consider IS therapy without definitive diagnosis and biopsy. Recommend transfer to [facility] for coordinated care for possible underlying GN, Hep C and HCC --avoid all nephrotoxic medications, dose medications for GFR less than 10 --SUDARSHAN 14312 units x 1 dose today Will follow while in patient (2) Anemia: (3) Hypokalemia: (4) Kidney stone: (5) Thrombocytopenia: (6) Hepatitis C: Subjective Shad was seen and examined in his room this morning. Getting more lethargy today and falling asleep easily. Renal function continues to worsen but electrolyte acceptable. Decent UO. Blood pressure stable. Volume status acceptable. Review of Systems Review of Systems: All systems reviewed & are unremarkable except as noted in HPI & below Physical Exam Constitutional: WD/WN, vitals as above + ill appearing and + lethargic; no acute distress Neck: trachea midline Respiratory: normal respiratory effort, lungs clear to auscultation no cough Auscultation: no crackles, no rales and no wheezes Cardiovascular: RRR, no murmur, no edema Skin: no rashes, warm and dry Neurologic: moves all extremities and awake; not confused Results & Data Vital Signs (Past 12 Hours) Vital Signs Temp Pulse Pulse Pulse Resp BP BP 04/25/19 07:37 81 04/25/19 07:14 36.6 C 77 18 129/70 04/25/19 04:00 36.6 C 78 20 124/74 04/25/19 01:26 76 04/24/19 23:57 36.8 C 75 20 131/72 Pulse Ox 04/25/19 07:37 04/25/19 07:14 98 04/25/19 04:00 99 04/25/19 01:26 04/24/19 23:57 90 PG Care Time/CCT Total # of Minutes Spent Total Time Spent with Patient: Total time spent is greater than 50% in coordination of care (as documented) at patient's floor/unit and/or counseling patient: (1) Acute renal failure Acute renal failure type: unspecified Qualified Code(s): N17.9 - Acute kidney failure, unspecified (2) Anemia Anemia type: unspecified type Qualified Code(s): D64.9 - Anemia, unspecified (3) Hepatitis C Hepatic coma status: without hepatic coma Viral hepatitis chronicity: unspecified Qualified Code(s): B19.20 - Unspecified viral hepatitis C without hepatic coma
--- NOTE | 2019-04-25 11:09 | CT Scan Report ---
CT head/brain wo con CLINICAL HISTORY: 58 years-old Male presenting with MATOS, AMS. TECHNIQUE: Multidetector CT imaging of the head was performed without the use of intravenous contrast . IV contrast: None. One or more dose lowering techniques were used consistent with the principles of ALARA (as low as reasonably achievable), including automatic exposure control, mA or kV adjustment t o individual patient size, and/or use of iterative reconstruction. COMPARISON: 07/02/2018. CT DOSE (mGy.cm): The estimated cumulative dose is 663.86 mGycm. FINDINGS: Screen Print Operator topogram: Unremarkable. Ventricles and sulci normal in size. No hemorrhage. Cerebellar atrophy again noted. Remainder brain p arenchyma normal. No acute territorial infarct. No mass effect or midline shift. No extra-axial fluid collection. Paranasal sinuses and mastoid air cells clear. Calvarium intact. IMPRESSION: 1. No significant change compared to the prior study. No acute intracranial abnormality. Electronically signed by: Derek Romo M.D. 04/25/2019 11:08 AM
[2019-04-25] MEDS ORDERED: POTASSIUM CHLORIDE 20 MEQ TABCR PO STA (12:38)
[2019-04-25] MEDS ORDERED: EPOETIN ALFA 20,000 UNITS/ML VIAL SQ ONE (13:00)
--- NOTE | 2019-04-25 14:30 | Discharge Summary ---
Date of Service April 25, 2019 Admission HPI Per Admitting Provider Mr. 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 He states that the pain came on gradually, and reports that it is only present upon movement. He states that he does not have any pain if he lays still, however if he tries to lean forward, the pain is severe. He states currently, his pain is a 6/10. He endorses a fall 2 weeks ago. He states he did not seek medical attention at this time. He reports he did not hit his head or lose consciousness. He also notes that he has had blood in his urine for the past 1 week. He states that his urine is pink in color, and he notes increased urinary urgency, however denies dysuria or the presence of clots. He states that he has had no past history of hematuria, but does have a history of kidney stones. He reports subjective fever, but did not take his tem perature. He reports he has been eating and drinking well. He states that his bowels are moving normally. With regards to his liver cirrhosis, it is secondary to untreated hepatitis C, which was thought to be contracted from present tattoos. He also has a history of alcohol abuse, however states that he quit drinking 8 years ago. 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 Smokes 1 pack of cigarettes per day. Quit alcohol 8 years ago. No recreational drug use. Principal Diagnosis HCC, Hep C Discharge Exam Constitutional WD/WN, vitals as above Eyes PERRL, conjunctivae normal, anicteric sclerae ENMT external ear and nose normal, oropharynx normal Respiratory normal respiratory effort, lungs clear to auscultation Cardiovascular RRR, no murmur, no edema Gastrointestinal (Abdomen) mildly distended abd Musculoskeletal mid thoracic ttp Skin tatoos Discharge Data Allergies Allergy/AdvReac Type Severity Reaction Status Date / Time lisinopril Allergy Severe angioedema Verified 04/21/19 18:05 blue dye Allergy Intermediate VISION Verified 04/21/19 18:05 DISTURBANCES citalopram Allergy Intermediate VISION Verified 04/21/19 18:05 DISTURBANCES duloxetine Allergy Intermediate VISION Verified 04/21/19 18:05 DISTURBANCES Consultations 04/21/19 20:54 ED Decision to Admit Stat 04/22/19 00:09 Consult Case Management - Discharge Planning Routine Consult Gastroenterology Routine Consult Nephrology Routine 04/25/19 12:35 Burn CD for patient Stat Ordered Studies 04/21/19 18:36 CT abd pelvis wo con Stat 04/25/19 10:11 CT head/brain wo con Urgent Hospital Course (1) Acute renal failure: Mr. 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 Found to have hepatic hemorrhage in R lobe with underlying hepatocellular carcinoma. Acute Kidney Injury -Admit to med/surg with telemetry monitoring -creatinine acutely elevated to 3.61 - baseline appears to be approx 1.4 - 1.6 -several b/l renal calculi seen on CT abdomen and pelvis, however they are all non-obstructive -UA w/out evidence for infection -Differential diagnosis: Hepatorenal syndrome, secondary to dehydration in the setting of continued hydrochlorothiazide use, mixed cryoglobulinemia, membranoproliferative glomerulonephritis contributing to his renal insufficiency. Possibility for acute/subacute GN with history of underlying hep C -Urine cytology ordered -Hydrochlorothiazide held, avoid other nephrotoxic agents -Elevated ESR, complement panel/ cryoglobulins , ANCA, anti-GBM pending -concern for underlying acute GN, patient may need biopsy for further evaluation. If it is hep C related GN, pt may need immunosuppressive therapy prior to antiviral therapy for hep C. May need to consider transfer to tertiary center for this to be done in background of underlying carcinoma -likely not prerenal etiology -measure I/Os -appreciate Nephrology consult Hepatic hemorrhage/liver cirrhosis/Hepatocellular carcinoma -CT scan of abdomen and pelvis shows a cirrhotic liver with a 4.6 cm complex hyperdense lesion in the right hepatic lobe consistent with hemorrhage, likely with underlying hepatocellular carcinoma --> this is new from his prior CT scan in 08/2018 -Appreciate GI consult: treatment of this liver mass through interventional radiology - alpha fetoprotein has returned slightly high at 7 with the upper limit of normal being 6.1 -hemodynamically stable -Recheck H&H every 6 hours Antiphospholipid syndrome -Not on pharmacological anticoagulation due to his fall risk as well as anemia and thrombocytopenia, although his hepatic dysfunction is causing some degree of auto anticoagulation Bilateral flank pain -No evidence of obstructing kidney stones -History and physical examination suggestive of musculoskeletal cause of pain -Thoracic spine x-ray reviewed -Lidocaine patch ordered to back, home oxycodone regimen continued Pancytopenia -Hemoglobin 7.6, a decrease from his last hemoglobin of 10.8 -Anemia is chronic, related to his liver cirrhosis, however he may have had an acute drop given his hepatic hemorrhage -Thrombocytopenia-likely related to liver cirrhosis and splenomegaly -Trend H&H daily -transfuse as needed -SUDARSHAN 17518 units x 1 dose today History of seizures -Per patient's son, related to elevated ammonia levels -Last seizure was several months ago -Continue lactulose Hypertension -Hold home hydrochlorothiazide in the setting of LOUISE -Continue home amlodipine Anxiety -continue prn ativan Hx of duodenal ulcer -continue home pantoprazole Avascular necrosis of both hips -pt takes oxycodone TID prn at home for this - will continue this -pt ambulates using a wheelchair FEN/GI: Regular diet CODE STATUS: DNR, per discussion with patient DVT prophylaxis: SCDs, chemical prophylaxis contraindicated in the setting of hepatic hemorrhage, anemia and thrombocytopenia Dispo: [facility] Total Time Total Time Spent Total Time Spent (In Minutes): 30 Discharge Plan Discharge Items Patient Disposition: Transfer Acute Care Hospital Reason For Visit: LOUISE,HEPATIC HEMORRHAGE, HCC Discharge Diagnosis: HCC, MPGN, Hep C Activity: As commented below Non-emergency contact: Primary Care Provider Call non-emergency contact if: you have any medication questions and your symptoms worsen Follow-up/Referrals: Pietro Fung DO [Primary Care Provider] - Diet: Regular Addtl Attending Provider Instructions: Mr. 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 Found to have hepatic hemorrhage in R lobe with underlying hepatocellular carcinoma. Acute Kidney Injury -Admit to med/surg with telemetry monitoring -creatinine acutely elevated to 3.61 - baseline appears to be approx 1.4 - 1.6 -several b/l renal calculi seen on CT abdomen and pelvis, however they are all non-obstructive -UA w/out evidence for infection -Differential diagnosis: Hepatorenal syndrome, secondary to dehydration in the setting of continued hydrochlorothiazide use, mixed cryoglobulinemia, membranoproliferative glomerulonephritis contributing to his renal insufficiency. Possibility for acute/subacute GN with history of underlying hep C -Urine cytology ordered -Hydrochlorothiazide held, avoid other nephrotoxic agents -Elevated ESR, complement panel/ cryoglobulins , ANCA, anti-GBM pending -concern for underlying acute GN, patient may need biopsy for further evaluation. If it is hep C related GN, pt may need immunosuppressive therapy prior to antiviral therapy for hep C. May need to consider transfer to tertiary center for this to be done in background of underlying carcinoma -likely not prerenal etiology -measure I/Os -appreciate Nephrology consult Hepatic hemorrhage/liver cirrhosis/Hepatocellular carcinoma -CT scan of abdomen and pelvis shows a cirrhotic liver with a 4.6 cm complex hyperdense lesion in the right hepatic lobe consistent with hemorrhage, likely with underlying hepatocellular carcinoma --> this is new from his prior CT scan in 08/2018 -Appreciate GI consult: treatment of this liver mass through interventional radiology - alpha fetoprotein has returned slightly high at 7 with the upper limit of normal being 6.1 -hemodynamically stable -Recheck H&H every 6 hours Antiphospholipid syndrome -Not on pharmacological anticoagulation due to his fall risk as well as anemia and thrombocytopenia, although his hepatic dysfunction is causing some degree of auto anticoagulation Bilateral flank pain -No evidence of obstructing kidney stones -History and physical examination suggestive of musculoskeletal cause of pain -Thoracic spine x-ray reviewed -Lidocaine patch ordered to back, home oxycodone regimen continued Pancytopenia -Hemoglobin 7.6, a decrease from his last hemoglobin of 10.8 -Anemia is chronic, related to his liver cirrhosis, however he may have had an acute drop given his hepatic hemorrhage -Thrombocytopenia-likely related to liver cirrhosis and splenomegaly -Trend H&H daily -transfuse as needed -SUDARSHAN 06720 units x 1 dose today History of seizures -Per patient's son, related to elevated ammonia levels -Last seizure was several months ago -Continue lactulose Hypertension -Hold home hydrochlorothiazide in the setting of LOUISE -Continue home amlodipine Anxiety -continue prn ativan Hx of duodenal ulcer -continue home pantoprazole Avascular necrosis of both hips -pt takes oxycodone TID prn at home for this - will continue this -pt ambulates using a wheelchair FEN/GI: Regular diet CODE STATUS: DNR, per discussion with patient DVT prophylaxis: SCDs, chemical prophylaxis contraindicated in the setting of hepatic hemorrhage, anemia and thrombocytopenia Dispo: [facility] Pending Studies at Discharge: No Stand-Alone Forms: My [facility] [address] Skilled Items Patient informed of condition?: Yes DNR: Yes Discharge Level of Care: Other Communicable Disease: No Discharge Prognosis: Stable Lines: None Urinary Catheter: No Medications and DC Order Prescriptions: Continued hydrochlorothiazide 25 mg Tablet 25 mg PO QAM RF: 0 amlodipine 5 mg Tablet 5 mg PO QAM RF: 0 promethazine 25 mg tablet 25 mg PO Q6H PRN (Reason: nausea and vomiting) Qty: 20 RF: 0 pantoprazole 40 mg tablet,delayed release (DR/EC) 40 mg PO QAM RF: 0 lorazepam 1 mg tablet 1 mg PO BID RF: 0 oxycodone 5 mg tablet 5 mg PO TID PRN (Reason: Pain) RF: 0 lactulose 20 gram/30 mL Solution 30 ml PO Q8H Qty: 15 RF: 0 Discharge Orders: Discharge Order (Routine); Ordered 04/25/19 Ordered By: Garland Tripp Admission Data Admit Date/Time: 04/21/19 22:37 Attending Provider: Pietro Fung Admit Provider: Gonzalo Orozco Primary Care Provider: Pietro Fung Other Providers: Efe Greenwood ; Rambo Jerez ; Meagan Franco DC Date/Time DO NOT enter until pt leaves facility: 04/25/19 15:21 Supervising Physician Co-Signing Physician Notes I saw the patient concurrent with the resident physician and confirmed epstein portions of history and physical exam. Agree with the impression and plan as noted in the resident documentation. Also discussed the case with gastroenterology hospice care consultant. Upon examination this morning, the patient did have an episode of confusion. He also complained of a headache. Fortunately a stat CT of the head was unremarkable. The patient's renal function continues to worsen. The suspicion is for a membranoproliferative glomerulonephritis, especially in the context of his untreated hepatitis C. Again discussed with the patient the need for tertiary care -both to address his progressive worsening renal function and likely need for renal biopsy as while as interventional radiology for his hepatoma. Discussed the benefits of transfer including the ability to address the above; discussed the risks of transfer including accident while in route or a deterioration of condition while in route. The patient provided verbal consent of though was unable to sign (he has some difficulty with dexterity due to prior CVA). Acute kidney injury on chronic kidney disease Question if this membranoproliferative glomerulonephritis Antiphospholipid syndrome Liver cirrhosis/hepatitis C/hepatic hemorrhage/question underlying hepatocellular carcinoma/splenomegaly/stable ascites/portal hypertension- Pancytopenia Ground transfer to [facility]. The patient has been accepted in transfer. This transfer is medically necessary to treat the patient's conditions with specialties and procedures which are not available at this institution, as described above. Resident Activity Tracking Resident Involvement: Resident Care Provided Care Provided: Adult [facility]
[2019-04-27 05:51] LABS: % Cryocrit DNR; Complement C3 54 MG/DL (82-185); Complement Total(CH50) 25 U/mL (31-60); Cryoglobulin, QL Negative (Negative)
[2019-04-28 21:01] LABS: ANCA Screen Negative (Negative); Anti Nuclear Antibody Screen NEGATIVE (NEGATIVE); Anti-Glom Basement Antibody <1.0 AI (<1.0); Myeloperoxidase Ab <1.0 AI (<1.0); Proteinase-3 AB <1.0 AI (<1.0); Vitamin D 1,25 10 pg/mL (18-72); Vitamin D3,1,25 10 pg/mL
== END 2019-04-25 15:21 | disposition short-term general hospital (02) | DRG 436 ==
LOC: ED 17:28 → 2N 22:37 → SUATTDRO 22:37 → 2N 23:50